=== PATIENT | male | born 1945 | race Caucasian/White ===

== ENCOUNTER 2021-03-29 06:02 | Observation (INO) | payer MEDICARE, OTHER, SELFPAY ==
[2021-03-29] VITALS (31 sets, daily range): BP systolic 117–192; BP diastolic 71–110; PULSE 56–99; RESP 15–22; TEMP 36.2–37; O2SAT 90–100; BMI 25.7
--- NOTE | 2021-03-29 06:17 | US_ITS ---
WS: [id number] RIGHT UPPER QUADRANT ULTRASOUND HISTORY: ruq pain COMPARISON: None available. Liver: 16.4 cm in length. Normal size liver. Very mild central bile duct dilatation. Gallbladder: Normally distended gallbladder with numerous small stones layering and a small amount of sludge. Mild prominence the gallbladder wall measuring up to 4 mm. CBD: 0.8 cm Pancreas: Completely obscured by bowel gas. Right kidney: 10.7 cm in length. Normal size kidney. There is a large complex cyst from the mid kidne y measuring 8.5 x 7.9 cm. There is a septation present. No increased vascularity. Aorta and IVC: Unremarkable abdominal aorta and IVC. No ascites. US/US gall bladder [id number] IMPRESSION: 1. Cholelithiasis with changes highly suspicious for acute cholecystitis. 2. Common bile duct is mildly prominent with mild central bile duct dilatation . Distal obstructing stone is not excluded. 3. Pancreatic head is obscured by bowel gas. 4. Large mildly complex RIGHT renal cyst.
[2021-03-29 06:40] LABS: Basophils % 0.3 %; Eosinophils # 0.1 10^3/uL (0.0-0.8); Eosinophils % 0.4 %; Hematocrit 42.5 % (42.0-52.0); Hemoglobin 14.8 g/dL (11.7-16.6); Lymphocytes # 0.9 10^3/uL (0.8-4.8); Lymphocytes % 7.3 %; Mean Corpuscular HGB Conc 34.8 g/dL (30.0-36.0); Mean Corpuscular Hemoglobin 32.2 pg (28.0-34.0); Mean Corpuscular Volume 92.4 fL (80-94); Monocytes # 0.4 10^3/uL (0.2-0.9); Neutrophils # 10.26 10^3/uL (1.8-7.7); Neutrophils % 88.5 %; Nucleated Red Blood Cells % 0 %; Platelet Count 236 10^3/cmm (130-400); Red Cell Distribution Width 11.9 % (12.1-15.1); White Blood Count 11.6 10^3/uL (4.0-10.0)
[2021-03-29] MEDS: sodium chloride 0.9% 1,000 ML 999 ML IV (06:43)
[2021-03-29] MEDS: morphine 4 mg/mL SDV 1 mL 6 MG IVP (06:44)
[2021-03-29] MEDS: ondansetron 2 mg/ML SDV 2 mL 4 MG IVP (06:45)
[2021-03-29] MEDS: piperacillin-tazobactam 3.375 GM in sodium chloride 0.9% (plus) 50 ML IV ×3 (07:16→17:48)
[2021-03-29 07:17] LABS: Alanine Aminotransferase 18 U/L (0-41); Albumin Level 4.4 g/dL (3.5-5.2); Alkaline Phosphatase 95 IU/L (40-130); Anion Gap 18.1 (5-19); Aspartate Amino Transferase 17 U/L (0-40); Blood Urea Nitrogen 23 mg/dL (8-23); C Reactive Protein 4.8 mg/L (0.0-4.9); Calcium 8.4 mg/dL (8.5-10.5); Carbon Dioxide 21 mmol/L (22-29); Chloride 100 mmol/L (98-107); Globulin 2.3 g/dL (1.3-4.6); Glucose 226 mg/dL (65-115); Lipase 36 U/L (13-60); Osmolality Calculated 291 mOsm/kg (285-295); Potassium 4.1 mmol/L (3.5-5.1); Sodium 135 mmol/L (136-145); Total Bilirubin 0.5 mg/dL (0.15-1.2); Total Protein 6.7 g/dL (6.6-8.7)
--- NOTE | 2021-03-29 07:43 | ED_ITS ---
HPI - Abdominal Pain General: Chief Complaint: Abdominal Pain Stated Complaint: abd pain Time Seen by Provider: 03/29/21 06:16 History of Present Illness: HPI narrative: 75-year-old male presents emergency room with complaints of right upper quadrant abdominal pain that began yesterday. Began yesterday shortly after eating seem to get better and then he ate a sandwich with ham started bothering him he has severe right upper quadrant pain. He has had similar episodes in the past that were less intense that all resolved spontaneously this episode seems to be persisting. Has not had any fever sweats or chills some loose stools no hematochezia melena hematemesis or coffee-ground emesis denies chest pain he has some difficulty taking a deep breath because of the pain in the right upper quadrant no productive cough. No respiratory symptoms. MD elicited complaint: abdominal pain Onset (ago): hour(s) Pain Consistency: constant Location: RUQ Quality: cramping and stabbing Radiation: back Exacerbating factors: eating Relieving factors: nothing Associated Symptoms: Reports anorexia, bloating, GI cramping and nausea; Denies belching, change in bowel habits, change in stool character, chills, coffee ground emesis, constipation, diarrhea, dyspepsia, dysuria, excessive flatus, fever(s), heartburn, hematochezia, hematuria, hematemesis, fecal inconti nence, loose stools, melena, poor appetite, syncope and vomiting Review of Systems Const: Denies: fever(s) or chills Card: Denies: syncope GI: Reports: nausea, bloating and GI cramping; Denies: vomiting, hematemesis, coffee ground emesis, heartburn, diarrhea, constipation, belching, excessive flatus, fecal incontinence, change in bowel habits, change in stool character, hematochezia or melena : Denies: dysuria or hematuria PFS ED PFSH: Medical History BPH (benign prostatic hyperplasia) Hyperlipidemia Hypertension Type 2 diabetes mellitus Surgical History [facility] Social History Smoking and tobacco status: never smoked Alcohol intake: former Physical Exam Const: COMMON NORMALS: no acute distress GENERAL APPEARANCE: cooperative and comfortable ORIENTATION/CONSCIOUSNESS: Yes awake, Yes oriented to person, Yes oriented to place and Yes oriented to time HENMT: COMMON NORMALS: normocephalic, atraumatic, hearing grossly normal bilaterally and external ears normal HEAD & SCALP: normocephalic and atraumatic EXTERNAL EAR: Yes external ears normal Neck/C-Spine: COMMON NORMALS: no JVD Resp: COMMON NORMALS: normal respiratory effort, No retractions, No use of accessory muscles and clear to auscultation bilaterally AUSCULTATION: clear to auscultation bilaterally Cardio: COMMON NORMALS: no JVD, regular rate, regular rhythm and No murmurs present (Cardio) RATE: regular rate RHYTHM: regular rhythm GI: COMMON NORMALS: Soft to palpation and No hepatosplenomegaly present AUSCULTATION: Yes normoactive bowel sounds PALPATION: Yes Soft to palpation, No Tenderness to palpation present (GI), No Guarding due to palpation present (GI) and Yes No hepatosplenomegaly present Extremity: COMMON NORMALS: normal to inspection, capillary refill normal, no clubbing, cyanosis or edema, no calf tenderness and no pedal edema Neuro: SENSORIUM/ORIENTATION: Yes oriented to person, Yes oriented to place and Yes oriented to time Skin: COMMON NORMALS: no rashes or lesions noted GENERAL SKIN EXAM: no rashes or lesions noted Course Vital Signs: Vital signs: Vital Signs Temperature 98.4 F 03/29/21 06:11 Pulse Rate 68 03/29/21 08:00 Respiratory Rate 18 03/29/21 08:00 Blood Pressure 191/100 03/29/21 08:00 Pulse Oximetry 97 03/29/21 08:00 MDM - Abdominal Pain MDM Narrative: Medical decision making narrative: Dr. Ascencio admit patient consult to hospitalist for hypertension and diabetes management patient was given pain medication and started on Zosyn. The pain is improved blood pressure elevated his heart rate is still in the 50s and 60s he normally takes metoprolol in the morning we will give him some enalaprilat now potassium creatinine are normal. Patient has cholelithiasis acute cholecystitis, mild dilation of common bile duct but no evidence of obstruction on lab work no stone visualized in common bile duct. Lab Data: Labs: Lab Results 03/29/21 03/29/21 03/29/21 Range/Units 06:35 06:35 06:52 WBC 11.6 H (4.0-10.0) 10^3/ uL RBC 4.60 (4.1-5.3) 10^6/u L Hgb 14.8 (11.7-16.6) g/dL Hct 42.5 (42.0-52.0) % MCV 92.4 (80-94) fL MCH 32.2 (28.0-34.0) pg MCHC 34.8 (30.0-36.0) g/dL RDW 11.9 L (12.1-15.1) % Plt Count 236 (130-400) 10^3/c mm MPV 11.0 H (7.4-10.4) fL Neut % (Auto) 88.5 % Lymph % (Auto) 7.3 % [place] % (Auto) 3.0 % Eos % (Auto) 0.4 % Baso % (Auto) 0.3 % Neut # (Auto) 10.26 H (1.8-7.7) 10^3/u L Lymph # (Auto) 0.9 (0.8-4.8) 10^3/u L [place] # (Auto) 0.4 (0.2-0.9) 10^3/u L Eos # (Auto) 0.1 (0.0-0.8) 10^3/u L Baso # (Auto) 0.0 (0.0-0.1) 10^3/u L Nucleated RBC % (a uto) 0 % Nucleated RBCs # 0.0 /100WBC Sodium Cancelled 135 L Potassium Cancelled 4.1 Chloride Cancelled 100 Carbon Dioxide Cancelled 21 L Anion Gap Cancelled 18.1 BUN Cancelled 23 Creatinine Cancelled 0.7 GFR Calculation Cancelled Not Reportable Glucose Cancelled 226 H Calculated Osmolal ity Cancelled 291 Calcium Cancelled 8.4 L Total Bilirubin Cancelled 0.5 AST Cancelled 17 ALT Cancelled 18 Alkaline Phosphata se Cancelled 95 C-Reactive Protein Cancelled 4.8 Total Protein Cancelled 6.7 Albumin Cancelled 4.4 Globulin Cancelled 2.3 Lipase Cancelled 36 Discharge Plan Discharge Patient Disposition: Admitted As Inpatient Clinical Impression: Acute cholecystitis due to biliary calculus, Benign essential HTN Condition: Stable Coding Level of Care Code 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
--- NOTE | 2021-03-29 08:11 | PM.HP ---
Providers/Chief Complaint Admitting Physician: General Surgery Ankit Jerome MD Chief Complaint: abd pain History of Present Illness Jaswinder Sutton is a 75 year old male who developed upper abdominal pain yesterday. He eventually developed nausea and vomiting. He never saw any evidence of hematemesis. He says he has felt hot and cold but is not sure that he ever ran any fevers. He came to the emergency room today and an ultrasound showed changes consistent with early acute cholecystitis. The patient says he has had a couple episodes like this in the past, although perhaps not this bad. The first 1 was about a year ago and was somewhat severe, however. He denies any obvious food intolerances, postprandial discomfort, etc. In short, it is difficult for me to say that he has a frequent and ongoing history of biliary colic. Review of Systems General: Reports: 10 or more systems reviewed and unremarkable except in HPI and below Medications/Allergies Allergies Allergy/AdvReac Type Severity Reaction Status Date / Time No Known Allergies Allergy Verified 03/29/21 06:14 PFSH Acute PFSH: Medical History (Updated 03/29/21 @ 08:27 by Ankit Jerome MD) BPH (benign prostatic hyperplasia) Hyperlipidemia Hypertension Type 2 diabetes mellitus Surgical History (Updated 03/29/21 @ 08:27 by Ankit Jerome MD) Hx of [facility] Social History (Updated 03/29/21 @ 08:28 by Ankit Jerome MD) Smoking and tobacco status: never smoked Alcohol intake: former Vitals/I&O/Wt Last Vital Signs Temp 98.4 F 03/29/21 06:11 Pulse 68 03/29/21 08:00 Resp 18 03/29/21 08:00 BP 191/100 03/29/21 08:00 Pulse Ox 97 03/29/21 08:00 Weight last 48 hrs Weight 200 lb Physical Exam Narrative: EXAM NARRATIVE: The patient was encountered in his room in the emergency department. His pupils seem equal. No carotid bruits are heard. The lungs are clear anteriorly. The heart is regular. The abdomen reveals few bowel sounds but is soft. The patient has his maximum tenderness in the right upper quadrant with a positive Alas's sign. No obvious masses are palpated. The extremities reveal no edema. Neurologically the patient appears to be grossly intact. Data : 03/29/21 06:35 03/29/21 06:52 Other Labs: Laboratory Tests 03/29/21 06:52 Total Bilirubin 0.5 AST 17 ALT 18 Alkaline Phosphatase 95 US: Radiologist's impression: Gallbaladder ultrasound 03/29/21 IMPRESSION: 1. Cholelithiasis with changes highly suspicious for acute cholecystitis. 2. Common bile duct is mildly prominent with mild central bile duct dilatation. Distal obstructing stone is not excluded. 3. Pancreatic head is obscured by bowel gas. 4. Large mildly complex RIGHT renal cyst. A&P Assessment and plan (1) Acute cholecystitis due to biliary calculus: I discussed gallbladder disease and gallbladder surgery with the patient in detail. Risks of bleeding, infection, internal organ injury, etc. were all gone over. The patient seems to understand and would like to proceed with a cholecystectomy today. He will be kept n.p.o. and I will make arrangements for a laparoscopic or possibly open cholecystectomy later today. Status: Acute Attestations Medical Necessity Statement*: Based on my medical assessment, presenting symptoms and consideration of the scope of surgical therapy, I expect this patient will require treatment in the hospital for a period of time spanning less than 2 midnights, and is therefore being placed in observation status. 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
[2021-03-29] MEDS: enalaprilat 1.25 mg/mL Inj IVP (08:16)
--- NOTE | 2021-03-29 08:19 | PC.NURSE ---
Dr Jerome at bedside.
--- NOTE | 2021-03-29 08:23 | XRR_ITS ---
PROCEDURE INFORMATION: Exam: XR Chest Exam date and time: 03/29/2021 8:23 AM Age: 75 years old Clinical indication: Pain; Cough and dyspnea; Other: Abdominal; Additional info: Dyspnea/cough TECHNIQUE: Imaging protocol: XR of the chest. Views: 1 view. COMPARISON: CT chest con [id number] 06/06/2019 8:52 AM FINDINGS: Lungs: No significant airspace disease. Pleural spaces: No pleural effusion. Heart/Mediastinum: Epicardial fat, without cardiomegaly. Diaphragm: Asymmetric elevation of the right hemidiaphragm. Bones/joints: Degenerative change. XR/XR chest 1V portable [id number] IMPRESSION: No acute airspace or pleural disease.
--- NOTE | 2021-03-29 08:23 | ECG_ITS ---
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 Measurements Intervals [place] Rate: P: MA: QRS: 0 QRSD: T: 0 QT: QTc: Interpretive Statements Normal sinus rhythm No previous ECG available for comparison Electronically Signed On 03-29-2021 12:31:51 CDT by Juan Adams M.D. [email or web address]
--- NOTE | 2021-03-29 08:39 | PM.CONSULT ---
Providers/Reason For Consult Consulting Physician/Specialty*: George Jj MD, hospitalist Reason for Consult*: Hypertension, medical management Attending Physician: Ankit Jerome MD History of Present Illness History of Present Illness Jaswinder Sutton is a 75 year old male being admitted by the surgical service for concerns of acute cholecystitis. Patient reports he has had significant abdominal discomfort, right upper quadrant radiating to the back since around yesterday at 5:55 PM. He reports he vomited multiple times, and no blood was in his emesis. His stools have not been white. He has had no diarrhea. He has had no blood in his stool or black or tarry stools. He denies any fever or chills. He states for at least the last year he has had intermittent discomfort in his right upper quadrant. He thinks this happens around once a month but is not sure. He denies any recent history of Covid. He got his second Pfizer vaccine for Covid in December. He denies any cough, shortness of breath, chest discomfort, history of stroke or coronary disease. He reports he can go up 1 flight of steps without any difficulty and works daily without any chest discomfort or limitations. He denies any prior history of surgery, and denies being on any anticoagulants. He is on 81 mg of aspirin daily according to his medicine list from his primary care provider. Review of Systems General: Reports: 10 or more systems reviewed and unremarkable except in HPI and below Const: Denies: fever(s) or chills Eyes: Denies: change in vision ENMT: Denies: throat pain Card: Denies: chest pain Resp: Denies: dyspnea GI: Reports: abdominal pain, nausea and vomiting : Reports: difficulty urinating (History of prostate hypertrophy.); Denies: flank pain Musc: Denies: neck pain Skin/Breast: Denies: rash Neuro: Denies: headache(s) Psych: Denies: anxiety or depression Endo: Denies: polyuria Bob/Lymph: Denies: easy bruising All/Imm: Denies: urticaria Meds/Allergies Home Medications and Allergies Home Medications Medication Instructions Recorded Confirmed Last Taken Type aspirin [Aspir-81] 81 mg PO DAILY 03/29/21 03/29/21 03/28/21 History glipizide 10 mg PO DAILY 03/29/21 03/29/21 03/28/21 History ibuprofen 600 mg PO PRN 03/29/21 03/29/21 03/28/21 History lisinopril 2.5 mg PO DAILY 03/29/21 03/29/21 03/28/21 History metformin 500 mg PO DAILY 03/29/21 03/29/21 03/28/21 History metoprolol tartrate 50 mg PO DAILY 03/29/21 03/29/21 03/28/21 History multivit with min-folic acid 1 tab PO DAILY 03/29/21 03/29/21 03/28/21 History [Adult Multivitamin Gummies] pantoprazole 40 mg PO DAILY 03/29/21 03/29/21 03/28/21 History simvastatin 20 mg PO BEDTIME 03/29/21 03/29/21 03/28/21 History tamsulosin 0.4 mg PO DAILY 03/29/21 03/29/21 03/28/21 History Allergies Allergy/AdvReac Type Severity Reaction Status Date / Time No Known Allergies Allergy Verified 03/29/21 08:59 PFSH Acute PFSH: Medical History (Updated 03/29/21 @ 08:48 by Layton Jj MD) BPH (benign prostatic hyperplasia) Hyperlipidemia Hypertension Type 2 diabetes mellitus Surgical History Hx of [facility] Social History (Updated 03/29/21 @ 08:44 by Layton Jj MD) Smoking and tobacco status: former smoker Alcohol intake: former Vitals/I&O/Wt Last Vital Signs Temp 98.4 F 03/29/21 06:11 Pulse 68 03/29/21 08:00 Resp 18 03/29/21 08:00 BP 191/100 03/29/21 08:00 Pulse Ox 97 03/29/21 08:00 Weight last 48 hrs Weight 90.718 kg Physical Exam Narrative: EXAM NARRATIVE: General exam is a white male, complaining of some right upper quadrant pain. Blood pressure is noted to be elevated HEENT: Pupils equally round. Atraumatic normocephalic. Oropharynx clear. Neck is supple no lymphadenopathy thyromegaly Cardiovascular regular rate and rhythm without murmur, no S3 or S4 Lungs are clear no wheezing or crackles Abdomen is soft with positive bowel sounds. No obvious organomegaly. Tenderness is present in the right upper quadrant. was deferred Extremities no cyanosis clubbing or edema, cap refill brisk Skin no rash Neuro no obvious focal deficits. Data Other Data: Other data: EKG demonstrates sinus rhythm, borderline left axis deviation, no acute changes LFTs are normal Calcium 8.4 Lipase 36 TSH and hemoglobin A1c pending Urinalysis pending Abdominal ultrasound demonstrates cholecystitis with cholelithiasis, mild central bile duct dilation, right renal cyst A&P Assessment and plan (1) Acute cholecystitis due to biliary calculus: Surgery primary Surgery is planning on cholecystectomy later today, presumably laparoscopy. No direct medical contraindications are noted for this procedure. N.p.o. currently Status: Acute (2) Benign essential HTN: Hydralazine as needed for hypertension Restart home medication once surgery is completed Note that he has received Vasotec x1 in the emergency department. Status: Acute (3) Type 2 diabetes mellitus: Sliding scale insulin, consistent carb diet when he is able to take p.o. Status: Acute (4) Hyperlipidemia: Continue statin Status: Acute (5) BPH (benign prostatic hyperplasia): Continue Flomax Status: Acute Additional A&P Information Full code Lovenox for DVT prophylaxis may be given postoperatively. SCDs for now. Thank you for this consultation. 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
[2021-03-29 08:53] LABS: Glucose Urine UA 4+ (Normal); Ketones Urine 2+ (Negative); Protein Urine Neg (Negative); Urine Appearance Clear (CLEAR); Urine Color Yellow (Yellow); pH Urine 5 (5-7)
[2021-03-29 08:54] LABS: Add Urine Microscopic? YES; Bilirubin Urine Neg (Negative); Blood Urine 2+ (Negative); Leukocyte Esterase Urine Negative (Negative); Nitrate Urine Negative (Negative); Urobilinogen Urine Norm (Negative)
[2021-03-29 08:55] LABS: Bacteria Urine TRACE /hpf; RBC Urine 0-4 /hpf (0-2); Squamous Epithelial Cell Urine RARE /hpf (0-5); WBC Urine 0-4 /hpf (0-5)
[2021-03-29 08:56] LABS: Add Urine Culture? No
[2021-03-29] MEDS: morphine 4 mg/mL SDV 1 mL IVP (08:58)
--- NOTE | 2021-03-29 09:00 | PC.PHAR ---
pt states he takes care of his own medications-ext med history shows last filled glipizide er 5mg daily on 02/20/21-pt states he has been taking 10mg daily-rx for er 10mg daily last filled on 01/15/21 90d/s pt states he is suppose to be taking the er 10mg daily-pt states he has just been taking flomax 0.4mg daily-ext med history shows last filled on 03/15/21 0.8mg daily-Dr.L Garces office has januvia as a active medication rx last written in 07/07/2020 11 refills pt states he is not taking this medication ext med history shows last filled on 10/21/2020 30d/s- pt states it was changed to metformin
[2021-03-29 09:04] LABS: Estmated Average Glucose 163; Hemoglobin A1C 7.3 % (4.0-6.0)
[2021-03-29] MEDS: metoprolol succinate ER (24 HR) 50 mg Tablet PO (10:53)
[2021-03-29] MEDS: lisinopril 2.5 mg Tablet PO (10:53)
[2021-03-29] MEDS: aspirin 81 mg EC Tablet PO (10:53)
[2021-03-29] MEDS: tamsulosin 0.4 mg Capsule 0.8 MG PO (10:53)
[2021-03-29] MEDS: pantoprazole DR 40 mg Tablet PO (10:53)
[2021-03-29] MEDS: sodium chloride 0.9% 1,000 ML 75 ML IV ×2 (10:53→17:48)
[2021-03-29 10:56] LABS: Glucose Point of Care 179 mg/dL (70-110)
--- NOTE | 2021-03-29 11:25 | P.ANESASSM_ITS ---
Pre-Anesthetic Assessment Pre-Anesthetic Assessment: Height/Weight: Height 1.88 m Weight 90.718 kg Temp Pulse Resp BP Pulse Ox 98.1 F 83 17 176/72 98 03/29/21 10:28 03/29/21 10:28 03/29/21 10:28 03/29/21 10:28 03/29/21 10:28 Preop Diagnosis: Cholecystitis Proposed Procedure: Operation Date: 03/29/21 13:00 Proposed Procedures p Laparoscopic Cholecystectomy(Not Applicable) - Ankit Jerome MD Familial anesthetic complications: None Was Beta Karyna taken within 24 hours: N/A Was Clonidine taken within 24 hours: N/A Last intake: > 8 hrs Social: Social History: No alcohol and No tobacco Exam: Pre-Anes Outpt Exam: alert, oriented x 3, clear to auscultation bilaterally and regular rate & rhythm Airway: Cervical ROM: WNL MP: 3 Dentition: Other (missing tooth) CV/HEM: CV/HEM: HTN GI: GI: GERD Metabolic: Metabolic: DM and Hyperlipidemia Anesthetic Plan: ASA status: 2 Anesthesia: General Risk of > 500 ml blood loss (7ml/kg in children): No Meds/Allergies Current Medications: Current Medications Generic Name Dose Route Start Last Admin Trade Name Freq PRN Reason Stop Dose Admin Aspirin 81 mg 03/29/21 10:28 03/29/21 10:53 Aspirin 81 Mg Ec Tablet PO 81 mg DAILY ARVIN Administration Sodium Chloride 1,000 mls @ 75 ml s/hr 03/29/21 10:28 03/29/21 10:53 Sodium Chloride 0.9% IV 75 mls/hr .[id number] ARVIN Administration Piperacillin Sod/T azobactam 50 mls @ 12.5 mls /hr 03/29/21 11:00 03/29/21 10:53 Sod 3.375 gm/ So dium Chloride IV 12.5 mls/hr Q8H ARVIN Administration Protocol Insulin Aspart 0 unit 03/29/21 12:00 03/29/21 10:54 Insulin Aspart 1 00 Unit/1 Ml SUBCUT Not Given WM&BEDTIME ARVIN Protocol Lisinopril 2.5 mg 03/29/21 10:28 03/29/21 10:53 Lisinopril 2.5 M g Tablet PO 2.5 mg DAILY ARVIN Administration Metoprolol Succina te 50 mg 03/29/21 10:28 03/29/21 10:53 Metoprolol Succi agnes Er (24 Hr) 50 Mg Tablet PO 50 mg DAILY ARVIN Administration Pantoprazole Sodiu m 40 mg 03/29/21 10:28 03/29/21 10:[address] 40 Mg Tablet PO 40 mg DAILY ARVIN Administration Tamsulosin HCl 0.8 mg 03/29/21 10:28 03/29/21 10:53 Tamsulosin 0.4 M g Capsule PO 0.8 mg DAILY ARVIN Administration PFSH Anesthesia PFSH: Medical History (Updated 03/29/21 @ 08:48 by Layton Jj MD) BPH (benign prostatic hyperplasia) Hyperlipidemia Hypertension Type 2 diabetes mellitus Surgical History Hx of [facility]AS[facility] Social History (Updated 03/29/21 @ 08:44 by Layton Jj MD) Smoking and tobacco status: former smoker Alcohol intake: former Data Anesthesia CBC & Chem 7: 03/29/21 06:35 03/29/21 06:52 Other Labs: Laboratory Results - last 48 hr 03/29/21 03/29/21 03/29/21 06:35 06:35 06:40 WBC 11.6 H RBC 4.60 Hgb 14.8 Hct 42.5 MCV 92.4 MCH 32.2 MCHC 34.8 RDW 11.9 L Plt Count 236 MPV 11.0 H Neut % (Auto) 88.5 Lymph % (Auto) 7.3 [place] % (Auto) 3.0 Eos % (Auto) 0.4 Baso % (Auto) 0.3 Neut # (Auto) 10.26 H Lymph # (Auto) 0.9 [place] # (Auto) 0.4 Eos # (Auto) 0.1 Baso # (Auto) 0.0 Nucleated RBC % (auto) 0 Nucleated RBCs # 0.0 Sodium Cancelled Potassium Cancelled Chloride Cancelled Carbon Dioxide Cancelled Anion Gap Cancelled BUN Cancelled Creatinine Cancelled GFR Calculation Cancelled Glucose Cancelled POC Glucose Estimat Average Glucose 163 Hemoglobin A1c 7.3 H Calculated Osmolality Cancelled Calcium Cancelled Total Bilirubin Cancelled AST Cancelled ALT Cancelled Alkaline Phosphatase Cancelled C-Reactive Protein Cancelled Total Protein Cancelled Albumin Cancelled Globulin Cancelled Lipase Cancelled TSH Urine Color Urine Appearance Urine pH Ur Specific [place] Urine Protein Urine Glucose (UA) Urine Ketones Urine Blood Urine Nitrate Urine Bilirubin Urine Urobilinogen Ur Leukocyte Esterase Urine RBC Urine WBC Ur Squamous Epith Cells Amorphous Sediment Urine Bacteria 03/29/21 03/29/21 03/29/21 06:52 06:52 08:16 WBC RBC Hgb Hct MCV MCH MCHC RDW Plt Count MPV Neut % (Auto) Lymph % (Auto) [place] % (Auto) Eos % (Auto) Baso % (Auto) Neut # (Auto) Lymph # (Auto) [place] # (Auto) Eos # (Auto) Baso # (Auto) Nucleated RBC % (auto) Nucleated RBCs # Sodium 135 L Potassium 4.1 Chloride 100 Carbon Dioxide 21 L Anion Gap 18.1 BUN 23 Creatinine 0.7 GFR Calculation Not Reportable Glucose 226 H POC Glucose Estimat Average Glucose Hemoglobin A1c Calculated Osmolality 291 Calcium 8.4 L Total Bilirubin 0.5 AST 17 ALT 18 Alkaline Phosphatase 95 C-Reactive Protein 4.8 Total Protein 6.7 Albumin 4.4 Globulin 2.3 Lipase 36 TSH 2.10 Urine Color Yellow Urine Appearance Clear Urine pH 5 Ur Specific [place] 1.020 Urine Protein Neg Urine Glucose (UA) 4+ H Urine Ketones 2+ H Urine Blood 2+ H Urine Nitrate Negative Urine Bilirubin Neg Urine Urobilinogen Norm Ur Leukocyte Esterase Negative Urine RBC 0-4 H Urine WBC 0-4 H Ur Squamous Epith Cells Rare Amorphous Sediment Not Reportable Urine Bacteria Trace 03/29/21 10:48 WBC RBC Hgb Hct MCV MCH MCHC RDW Plt Count MPV Neut % (Auto) Lymph % (Auto) [place] % (Auto) Eos % (Auto) Baso % (Auto) Neut # (Auto) Lymph # (Auto) [place] # (Auto) Eos # (Auto) Baso # (Auto) Nucleated RBC % (auto) Nucleated RBCs # Sodium Potassium Chloride Carbon Dioxide Anion Gap BUN Creatinine GFR Calculation Glucose POC Glucose 179 H Estimat Average Glucose Hemoglobin A1c Calculated Osmolality Calcium Total Bilirubin AST ALT Alkaline Phosphatase C-Reactive Protein Total Protein Albumin Globulin Lipase TSH Urine Color Urine Appearance Urine pH Ur Specific [place] Urine Protein Urine Glucose (UA) Urine Ketones Urine Blood Urine Nitrate Urine Bilirubin Urine Urobilinogen Ur Leukocyte Esterase Urine RBC Urine WBC Ur Squamous Epith Cells Amorphous Sediment Urine Bacteria Cardiac Studies: No Data to Display
--- NOTE | 2021-03-29 11:27 | PC.CHAP ---
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 [] Patient/Family/Request visit [] Outpatient visit [] Follow-up visit [] Physician referral [] Code/Alert [] Routine visit [] Staff referral [] Actively dying [] Patient sleeping [] Family support [] [] Out of room [] Palliative care [] [] Receiving care in room [] Pre-surgical visit [] Trauma [] Long length of stay [] ICU visit [] Other: Relational/Emotional Strength [] Patient feels connected with others/family/visitors/staff [] Distress [] Loneliness/isolation [] Abandonment Spirituality of Patient [x] Person of Nohelia [x] Attends Yazidi of their Nohelia [x] Believes in Prayer [] Reads Bible or Uatsdin materials [] There are Spiritual issues to be addressed Emt I/99 Interventions [x] Prayer [] Active listening [] Non-anxious presence [] Spiritual/emotional support [] Crisis/trauma care [] Spiritual counseling [] Bereavement support [] Provided bereavement packet [] Provided Bible/devotional materials [] Provided toy/stuffed animal, coloring book to patient or family member [] Provided Communion [] Anointing/[place] [] Salvation [] Completed spiritual assessment [] Other: Impact on Illness or Injury [] Angry [] Fearful [] Anxious [] Often cries [] Exhaustion [] Unable to work [] Unable to attend religion [] Unable to walk/stand [] Unable to read [] Unable to drive [] Unable to eat/drink [] Unable to sleep [] Unable to be with family [] Patient intubated [] Other: Summary Time spent with patient
--- NOTE | 2021-03-29 12:59 | P.OP_ITS ---
Operative Report Date of procedure: March 29, 2021 Pre-op Diagnosis: Acute calculus cholecystitis. Post-op diagnosis: same Procedure Done: Laparoscopic cholecystectomy. Specimens removed/disposition: Gallbladder. Surgeon: Ankit Jerome Anesthesia: General Estimated blood loss (mL): 10 Complications: None. Condition: stable Disposition: PACU Procedure: The patient was brought to the Operating Room and was placed in a supine position on the Operating Room table. General endotracheal anesthesia was induced. The abdomen was prepped and draped in a sterile fashion. A small vertical incision was carried out in the superior aspect of the umbilicus where the patient appeared to have a small umbilical hernia. Blunt dissection was carried out down to the fascia, where the fat-containing umbilical hernia was found. The fat was excised and the fascial defect was elongated superiorly and inferiorly. A stay suture of 0 Vicryl was placed on either side of the midline. The underlying peritoneum was opened bluntly and the [place] port was placed directly into the peritoneal cavity and was held in place with the inflatable balloon. The peritoneal cavity was insufflated with carbon dioxide. The laparoscope was used to inspect the abdominal cavity. The gallbladder was distended and had changes typical of acute cholecystitis. No other gross abnormalities were noted. A 5 millimeter port was placed in the epigastrium under direct vision. Two 5-millimeter ports were placed on the right side of the abdomen under direct vision. The gallbladder was palpated with a grasper and was found to be distended and somewhat tense. Approximately 60 mL of dark- colored bile were suctioned from the gallbladder using a laparoscopic needle. The bile was sent for culture. The gallbladder was then grasped and was elevated. The patient had some fatty adhesions to the fundus and infundibular region of the gallbladder. These were taken down using blunt dissection with some cautery to maintain hemostasis. Blunt dissection and hydrodissection were carried out in the infundibular region of the gallbladder and the cystic duct and cystic artery were identified. The gallbladder was partially removed from the liver bed using cautery and the spatula to confirm the anatomy before the structures were clipped and divided. The gallbladder was then removed from the liver bed using cautery and the spatula. After the gallbladder had been removed from the liver bed, the laparoscope was moved to the epigastric port and the gallbladder was removed from the peritoneal cavity through the umbilical port site. The stay sutures of Vicryl were tied to each other at the umbilicus, closing the defect so that it was airtight. The perihepatic spaces were irrigated with saline and the liver bed was reinspected. No ongoing problems were seen. The remaining ports were removed from the abdominal wall and the pneumoperitoneum was evacuated. All skin incisions were closed using inverted interrupted sutures of 4-0 Vicryl. Benzoin and Steri-Strips were placed over the incisions and Band-Aids followed. The patient was taken to the Recovery Area in stable condition postoperatively.
[2021-03-29] MEDS: fentaNYL 50 mcg/mL INJ 2mL IVP (13:13)
--- NOTE | 2021-03-29 13:48 | XRR_ITS ---
PROCEDURE INFORMATION: Exam: XR Chest Exam date and time: 03/29/2021 1:53 PM Age: 75 years old Clinical indication: Shortness of breath; Prior surgery; Surgery date: Post-operative (0-2 days); Additional info: SOB TECHNIQUE: Imaging protocol: XR of the chest. Views: 1 view. COMPARISON: CR XR chest 1V portable [id number] 03/29/2021 8:35 AM FINDINGS: Lungs: No significant airspace disease. Pleural spaces: No pleural effusion. Heart/Mediastinum: No cardiomegaly. Diaphragm: Asymmetric elevation of the right hemidiaphragm. Bones/joints: Degenerative change. Intraperitoneal space: Subtle findings of pneumoperitoneum, in the setting of recently reported surgery. Gastrointestinal tract: Bowel dilatation in the visualized upper abdomen. XR/XR chest 1V portable [id number] IMPRESSION: Subtle findings of pneumoperitoneum, in the setting of recently reported surgery.
[2021-03-29] MEDS: HYDROcodone-acetaminophen 5-325 mg Tablet PO ×2 (16:04→20:47)
[2021-03-29] MEDS: heparin 5,000 unit/mL INJ 1 mL 5000 UNIT SUBCUT (16:04)
[2021-03-29 17:07] LABS: Glucose Point of Care 210 mg/dL (70-110)
[2021-03-29 20:18] LABS: Glucose Point of Care 216 mg/dL (70-110)
[2021-03-29] MEDS: atorvastatin 40 mg Tablet 20 MG PO (20:40)
[2021-03-30 01:30] VITALS: BP 121/73; PULSE 79; RESP 17; TEMP 37.1; O2SAT 94
[2021-03-30 02:40] LABS: Basophils % 0.1 %; Hematocrit 42.2 % (42.0-52.0); Hemoglobin 14.5 g/dL (11.7-16.6); Lymphocytes # 1.2 10^3/uL (0.8-4.8); Lymphocytes % 9.9 %; Mean Corpuscular HGB Conc 34.4 g/dL (30.0-36.0); Mean Corpuscular Hemoglobin 32.2 pg (28.0-34.0); Mean Corpuscular Volume 93.6 fL (80-94); Mean Platelet Volume 10.6 fL (7.4-10.4); Monocytes # 0.8 10^3/uL (0.2-0.9); Monocytes % 7.1 %; Neutrophils # 9.69 10^3/uL (1.8-7.7); Neutrophils % 82.5 %; Nucleated Red Blood Cells % 0 %; Platelet Count 236 10^3/cmm (130-400); Red Blood Count 4.51 10^6/uL (4.1-5.3); White Blood Count 11.8 10^3/uL (4.0-10.0)
[2021-03-30] MEDS: piperacillin-tazobactam 3.375 GM in sodium chloride 0.9% (plus) 50 ML IV (02:52)
[2021-03-30] MEDS: heparin 5,000 unit/mL INJ 1 mL 5000 UNIT SUBCUT (02:55)
[2021-03-30 03:01] LABS: Alanine Aminotransferase 155 U/L (0-41); Albumin Level 3.6 g/dL (3.5-5.2); Alkaline Phosphatase 84 IU/L (40-130); Aspartate Amino Transferase 121 U/L (0-40); Blood Urea Nitrogen 13 mg/dL (8-23); Calcium 7.9 mg/dL (8.5-10.5); Carbon Dioxide 26 mmol/L (22-29); Chloride 102 mmol/L (98-107); Globulin 2.5 g/dL (1.3-4.6); Glucose 170 mg/dL (65-115); Osmolality Calculated 286 mOsm/kg (285-295); Sodium 136 mmol/L (136-145); Total Bilirubin 0.8 mg/dL (0.15-1.2); Total Protein 6.1 g/dL (6.6-8.7)
[2021-03-30] MEDS: HYDROcodone-acetaminophen 5-325 mg Tablet PO ×2 (03:11→10:08)
[2021-03-30 04:00] VITALS: BP 139/74; PULSE 62; RESP 18; TEMP 36.5; O2SAT 95
--- NOTE | 2021-03-30 05:55 | PC.NURSE ---
Shift Summary Patient rested off and on throughout the night. Patient did had some abdominal and shoulder pain throughout the shift with the highest pain being a 5 on the 0 to 10 pain scale. Patient admitted pain was worse when he would sit up on the side of the bed. Patient denies passing any gas yet but does admit he has been belching throughout the night. Patient is currently resting comfortably in bed.
[2021-03-30 06:42] LABS: Glucose Point of Care 155 mg/dL (70-110)
[2021-03-30] MEDS: sodium chloride 0.9% 1,000 ML 75 ML IV (07:05)
--- NOTE | 2021-03-30 07:08 | PM.DCS ---
Discharge Providers Date of Admission: 03/29/21 08:55 Date of Discharge: March 30, 2021 Attending Provider at Admission: Ankit Jerome MD Attending Provider at Discharge: Ankit Jerome MD Diagnoses at Discharge Discharge Diagnosis (1) Acute cholecystitis due to biliary calculus: Status: Acute (2) Benign essential HTN: Status: Acute (3) Type 2 diabetes mellitus: Status: Acute (4) Hyperlipidemia: Status: Acute (5) BPH (benign prostatic hyperplasia): Status: Acute Reason for Visit Reason for Visit: abd pain Hospital Course Hospital Course This is a 75-year-old white male who presented to the emergency room with a 24-hour history of abdominal pain. Work-up revealed acute calculus cholecystitis. He was taken to the operating room the same day and a laparoscopic cholecystectomy was performed. The hospitalist team was consulted preoperatively and followed him throughout his stay. By the following morning he was already feeling much better and was tolerating oral intake. He was anxious to go home. He was instructed with respect to wound care, activity limitations, diet, etc. Arrangements will be made for him to follow-up with me in my office as an outpatient. Physical Exam Narrative: EXAM NARRATIVE: The patient is afebrile. Vital signs are stable. Bowel sounds are present in all the laparoscopic incisions look good. Discharge Data Data Completed and Pending: Completed Studies During Hospitalization Category Date Time Status XR chest 1V jessica ble [id number] Stat Exams 03/29/21 08:23 Completed XR chest 1V jessica ble [id number] Stat Exams 03/29/21 13:48 Completed US gall bladder 7 [id number] Urgent Ultrasound 03/29/21 06:17 Completed Pending at discharge Category Date Time Status ES surgery / GI i mages Routine Exams 03/29/21 11:06 Ordered Body Fluid Cultur e & GS Routine Lab 03/29/21 12:20 Results Pathology: Surgic al [PTH] Routine Pth 03/29/21 13:15 Ordered Labs from last 24 hours 03/30/21 03/30/21 03/30/21 06:26 02:13 02:13 WBC 11.8 H RBC 4.51 Hgb 14.5 Hct 42.2 MCV 93.6 MCH 32.2 MCHC 34.4 RDW 12.0 L Plt Count 236 MPV 10.6 H Neut % (Auto) 82.5 Lymph % (Auto) 9.9 [place] % (Auto) 7.1 Eos % (Auto) 0.0 Baso % (Auto) 0.1 Neut # (Auto) 9.69 H Lymph # (Auto) 1.2 [place] # (Auto) 0.8 Eos # (Auto) 0.0 Baso # (Auto) 0.0 Nucleated RBC % (a uto) 0 Nucleated RBCs # 0.0 Sodium 136 Potassium 4.0 Chloride 102 Carbon Dioxide 26 Anion Gap 12.0 BUN 13 Creatinine 0.9 GFR Calculation Not Reportable Glucose 170 H POC Glucose 155 H Estimat Average Gl ucose Hemoglobin A1c Calculated Osmolal ity 286 Calcium 7.9 L Total Bilirubin 0.8 AST 121 H ALT 155 H Alkaline Phosphata se 84 C-Reactive Protein Total Protein 6.1 L Albumin 3.6 Globulin 2.5 Lipase TSH Urine Color Urine Appearance Urine pH Ur Specific Gravit y Urine Protein Urine Glucose (UA) Urine Ketones Urine Blood Urine Nitrate Urine Bilirubin Urine Urobilinogen Ur Leukocyte Saskia ase Urine RBC Urine WBC Ur Squamous Epith Cells Amorphous Sediment Urine Bacteria 03/29/21 03/29/21 03/29/21 20:13 16:58 10:48 WBC RBC Hgb Hct MCV MCH MCHC RDW Plt Count MPV Neut % (Auto) Lymph % (Auto) [place] % (Auto) Eos % (Auto) Baso % (Auto) Neut # (Auto) Lymph # (Auto) [place] # (Auto) Eos # (Auto) Baso # (Auto) Nucleated RBC % (a uto) Nucleated RBCs # Sodium Potassium Chloride Carbon Dioxide Anion Gap BUN Creatinine GFR Calculation Glucose POC Glucose 216 H 210 H 179 H Estimat Average Gl ucose Hemoglobin A1c Calculated Osmolal ity Calcium Total Bilirubin AST ALT Alkaline Phosphata se C-Reactive Protein Total Protein Albumin Globulin Lipase TSH Urine Color Urine Appearance Urine pH Ur Specific Gravit y Urine Protein Urine Glucose (UA) Urine Ketones Urine Blood Urine Nitrate Urine Bilirubin Urine Urobilinogen Ur Leukocyte Saskia ase Urine RBC Urine WBC Ur Squamous Epith Cells Amorphous Sediment Urine Bacteria 03/29/21 03/29/21 03/29/21 08:16 06:52 06:52 WBC RBC Hgb Hct MCV MCH MCHC RDW Plt Count MPV Neut % (Auto) Lymph % (Auto) [place] % (Auto) Eos % (Auto) Baso % (Auto) Neut # (Auto) Lymph # (Auto) [place] # (Auto) Eos # (Auto) Baso # (Auto) Nucleated RBC % (a uto) Nucleated RBCs # Sodium 135 L Potassium 4.1 Chloride 100 Carbon Dioxide 21 L Anion Gap 18.1 BUN 23 Creatinine 0.7 GFR Calculation Not Reportable Glucose 226 H POC Glucose Estimat Average Gl ucose Hemoglobin A1c Calculated Osmolal ity 291 Calcium 8.4 L Total Bilirubin 0.5 AST 17 ALT 18 Alkaline Phosphata se 95 C-Reactive Protein 4.8 Total Protein 6.7 Albumin 4.4 Globulin 2.3 Lipase 36 TSH 2.10 Urine Color Yellow Urine Appearance Clear Urine pH 5 Ur Specific Gravit y 1.020 Urine Protein Neg Urine Glucose (UA) 4+ H Urine Ketones 2+ H Urine Blood 2+ H Urine Nitrate Negative Urine Bilirubin Neg Urine Urobilinogen Norm Ur Leukocyte Saskia ase Negative Urine RBC 0-4 H Urine WBC 0-4 H Ur Squamous Epith Cells Rare Amorphous Sediment Not Reportable Urine Bacteria Trace 03/29/21 06:40 WBC RBC Hgb Hct MCV MCH MCHC RDW Plt Count MPV Neut % (Auto) Lymph % (Auto) [place] % (Auto) Eos % (Auto) Baso % (Auto) Neut # (Auto) Lymph # (Auto) [place] # (Auto) Eos # (Auto) Baso # (Auto) Nucleated RBC % (a uto) Nucleated RBCs # Sodium Potassium Chloride Carbon Dioxide Anion Gap BUN Creatinine GFR Calculation Glucose POC Glucose Estimat Average Gl ucose 163 Hemoglobin A1c 7.3 H Calculated Osmolal ity Calcium Total Bilirubin AST ALT Alkaline Phosphata se C-Reactive Protein Total Protein Albumin Globulin Lipase TSH Urine Color Urine Appearance Urine pH Ur Specific Gravit y Urine Protein Urine Glucose (UA) Urine Ketones Urine Blood Urine Nitrate Urine Bilirubin Urine Urobilinogen Ur Leukocyte Saskia ase Urine RBC Urine WBC Ur Squamous Epith Cells Amorphous Sediment Urine Bacteria Vitals: Last Vital Signs Temp 97.7 F 03/30/21 04:00 Pulse 62 03/30/21 04:00 Resp 18 03/30/21 04:00 BP 139/74 03/30/21 04:00 Pulse Ox 95 03/30/21 04:00 Discharge Plan Discharge Patient Disposition: Home Condition: Stable Prescriptions: New hydrocodone-acetaminophen 5-325 mg tablet 1 - 2 tab PO Q5H PRN (Reason: pain) Qty: 30 RF: 0 Continued metoprolol tartrate 100 mg tablet 50 mg PO DAILY RF: 0 glipizide 5 mg tablet extended release 24hr 10 mg PO DAILY RF: 0 Aspir-81 81 mg Tablet,Delayed Release (Dr/Ec) 81 mg PO DAILY RF: 0 tamsulosin 0.4 mg capsule 0.4 mg PO DAILY RF: 0 pantoprazole 40 mg tablet,delayed release (DR/EC) 40 mg PO DAILY RF: 0 simvastatin 20 mg tablet 20 mg PO BEDTIME RF: 0 ibuprofen 200 mg Tablet 600 mg PO PRN RF: 0 metformin 500 mg tablet extended release 24 hr 500 mg PO DAILY RF: 0 lisinopril 2.5 mg tablet 2.5 mg PO DAILY RF: 0 Adult Multivitamin Gummies 200 mcg Tablet,Chewable 1 tab PO DAILY RF: 0 Discharge Orders: Discharge Order (Routine); Ordered 03/30/21 Ordered By: Ankit Jerome Referrals: Ankit Jerome MD [Physician] - 2 weeks (Nursing: Please call Dr. Jerome's office ([phone]) and make an appointment for the patient to be seen in 10-14 days.) Discharge Diet: Advance as tolerated Discharge Activity: Limit activity as instructed Patient Instructions: Opioid Safety Activity Restrictions/Additional Instructions: 1. Discharge to home today. 2. Appointment to see Dr. Jerome in 10-14 days. 3. Bandages / bandaids off later today, leave Steri-Strip(s) on, may shower. 4. [place] 5/325 1-2 tablets by mouth every 5 hours as needed for pain. #30, no refills. No lifting over 20 pounds, no repetitive bending or twisting, no strenuous pushing / pulling or other heavy activity. Ambulate regularly. May go up and down steps if needed. Discharge Attestations Time Spent in Discharge Care*: less than 30 min Quality Metrics Clinical Quality Measures During this hospital stay, did patient experience: None Coding Level of Care Code Acute Chg [facility] note Diagnoses Acute cholecystitis due to biliary calculus K80.00 Benign essential HTN I10 Type 2 diabetes mellitus E11.9 Hyperlipidemia E78.5 BPH (benign prostatic hyperplasia) N40.0
[2021-03-30 07:33] VITALS: BP 118/65; PULSE 54; RESP 18; TEMP 36.3; O2SAT 94
[2021-03-30] MEDS: metoprolol succinate ER (24 HR) 50 mg Tablet PO (08:05)
[2021-03-30] MEDS: pantoprazole DR 40 mg Tablet PO (08:05)
[2021-03-30] MEDS: aspirin 81 mg EC Tablet PO (08:05)
[2021-03-30] MEDS: tamsulosin 0.4 mg Capsule 0.8 MG PO (08:05)
[2021-03-30] MEDS: lisinopril 2.5 mg Tablet PO (08:05)
--- NOTE | 2021-03-30 09:12 | P.PN_ITS ---
Subjective Subjective: Interval history: No concerns overnight. Patient denies any cough or shortness of breath. Medications: Reviewed: Yes Vitals/I&O/Wt Last Vital Signs Temp 97.3 F L 03/30/21 07:33 Pulse 54 L 03/30/21 07:33 Resp 18 03/30/21 07:33 BP 118/65 03/30/21 07:33 Pulse Ox 94 03/30/21 07:33 03/29/21 03/30/21 03/30/21 22:59 06:59 14:59 Intake Total 1038.75 / 2088.75 120 / 2208.75 1046.25 / 1046.25 Output Total 825 / 830 350 / 350 Balance 1038.75 / 2083.75 -705 / 1378.75 696.25 / 696.25 Weight last 48 hrs Weight 90.718 kg Physical Exam Narrative: EXAM NARRATIVE: General exam no obvious distress Neck is supple no lymphadenopathy thyromegaly Cardiovascular regular rate and rhythm without murmur, no S3 or S4 Lungs are clear no wheezing or crackles Abdomen is soft with positive bowel sounds. Surgical scars noted without significant drainage Extremities no cyanosis clubbing or edema, cap refill brisk Data : 03/30/21 02:13 03/30/21 02:13 Micro: Microbiology 03/29/21 12:20 Gram Stain - Final Gallbladder Fluid A&P Assessment and plan (1) Acute cholecystitis due to biliary calculus: Postoperative day #1 status post laparoscopic cholecystectomy Status: Acute (2) Benign essential HTN: Continue current home medications Status: Acute (3) Type 2 diabetes mellitus: Currently on sliding scale insulin. May resume home medication when discharged. Status: Acute (4) Hyperlipidemia: Continue statin Status: Acute (5) BPH (benign prostatic hyperplasia): Continue Flomax Status: Acute Additional A&P Information Full code Heparin given for DVT prophylaxis Appropriate for discharge as per surgery. Attestations Medical Necessity Statement*: As per primary Coding Level of Care Code Acute Encoding Machine Operator for Chg Fwd Diagnoses Acute cholecystitis due to biliary calculus K80.00 Benign essential HTN I10 Type 2 diabetes mellitus E11.9 Hyperlipidemia E78.5 BPH (benign prostatic hyperplasia) N40.0
[2021-03-30 11:07] LABS: Glucose Point of Care 159 mg/dL (70-110)
--- NOTE | 2021-03-30 11:44 | PC.NURSE ---
DISCHARGE INSTRUCTIONS DISCHARGE INSTRUCTIONS GIVEN TO PT AND - BOTH VERBALIZE UNDERSTANDING - TAKEN TO PRIVATE CAR VIA STAFF
[2021-03-30 11:46] VITALS: BP 118/65; PULSE 54; RESP 18; TEMP 36.3; O2SAT 94
== END 2021-03-30 11:47 | disposition home or self-care (01) ==
LOC: ER 09:27 → MEDSURG 09:49
PROVIDERS: Emergency Medicine; Internal Medicine; Admitting Provider Surgery; Emergency Provider Family Medicine; Visit Provider Surgery
PROC: 0FT44ZZ Resection of Gallbladder, Percutaneous Endoscopic Approach (ICD-10-PCS; CPT 47562; principal; 2021-03-29 13:00)
DX: K80.10 Calculus of gallbladder with chronic cholecystitis without obstruction (principal)
CPT/HCPCS: 47562; 36415; 36416; 71045; 76705; 80053; 81001; 82962; 83036; 83690; 84443; 85025; 86140; 87070; 87075; 87077; 87186; 87205; 88304; 93005; 96361; 96365; 96367; 96372; 96375; 99285; G0378; J1100; J1644; J1815; J2270; J2405; J2543; J2704; J2710; J3010; J3490; J7030

== ENCOUNTER 2022-07-21 14:18 | Observation (INO) | payer MEDICARE, OTHER, SELFPAY ==
[2022-07-21] VITALS (9 sets, daily range): BP systolic 134–172; BP diastolic 73–86; PULSE 59–68; RESP 13–23; TEMP 36.2–36.4; O2SAT 97–99; BMI 25.7
--- NOTE | 2022-07-21 14:26 | ECG_ITS ---
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 Measurements Intervals [place] Rate: 56 P: 60 SD: 170 QRS: -30 QRSD: 100 T: 32 QT: 416 QTc: 404 Interpretive Statements SINUS BRADYCARDIA BORDERLINE LEFT AXIS DEVIATION [QRS AXIS < -20] Compared to ECG 03/29/2021 08:34:59 Sinus rhythm no longer present Electronically Signed On 07-21-2022 20:36:06 CDT by Andreas Wakefield M.D. [email or web address]
--- NOTE | 2022-07-21 14:36 | XR_ITS ---
WS: [id number] Exam: XR chest 1V portable [id number] Date/Time of Exam: 07/21/2022 2:36 PM Reason For Exam: chest pain Comparison 03/29/2021. Findings: The lungs are clear and fully expanded. Costophrenic angles are sharp. No infiltrates. Bronchovascula r relief appears normal. Cardiac silhouette is unremarkable. Bony elements are intact. XR/XR chest 1V portable [id number] IMPRESSION: Unremarkable chest radiograph.
--- NOTE | 2022-07-21 14:47 | ED_ITS ---
HPI - Chest Pain General: Chief Complaint: Chest Pain Stated Complaint: Chest Pain Time Seen by Provider: 07/21/22 14:36 Source: patient Mode of arrival: ambulatory Limitations: no limitations History of Present Illness: 76 yo male with history of diabetes mellitus presents emergency room with 1 week onset of intermittent chest pain is been escalating in nature. Pain radiates into his neck and left shoulder and is accompanied by shortness of breath. He was seen a week ago had a cardiac rule out at another hospital his enzymes were negative and discharged home and asked to take a full size aspirin daily. Since then he seen his primary care doctor yesterday and was given sublingual nitro since receiving that prescription he is taken 7 pills when he has had episodes of chest pain each time and chest pain has been relieved by the nitro. He is pain-free at this time. He has no known history of coronary disease no previous interventions no previous stress testing. Patient is a non-smoker. MD complaint: chest pain Pertinent past history: coronary artery disease Onset (ago): week(s) (1) Timing of current episode: episodic Prior episodes: Yes Onset: during rest and during exertion Pain location: left chest Pain radiation: neck and left shoulder Quality: sharp Relieving factors: nitroglycerin Exacerbating factors: exertion Associated symptoms: Reports nausea; Deny abdominal pain, diaphoresis, dyspnea, fever(s), leg edema, palpitations, sense of impending doom, syncope or vomiting Treatment prior to arrival: aspirin and nitroglycerin Review of Systems Const: Denies: fever(s), chills, fatigue, malaise or diaphoresis ENMT: Denies: throat pain, ear or mastoid pain, nasal discharge or nasal congestion Card: Reports: chest pain; Denies: palpitations or syncope Resp: Denies: dyspnea GI: Reports: nausea; Denies: abdominal pain or vomiting : Denies: flank pain, difficulty urinating, dysuria, urinary frequency or urinary urgency Skin/Breast: Denies: rash or pruritus PFSH ED PFSH: Medical History Atherosclerotic heart disease of [place] coronary artery with unstable angina pectoris Benign essential HTN Enlarged prostate with lower urinary tract symptoms (LUTS) GERD (gastroesophageal reflux disease) Hyperlipidemia Hypertension Prostate cancer metastatic to bone Type 2 diabetes mellitus Surgical History History of cholecystectomy History of coronary angioplasty with insertion of stent (07/22/22) History of prostate biopsy (05/31/22) Hx of LASIK Family History Denies family history of CAD (coronary artery disease) Social History Smoking and tobacco status: former smoker Alcohol intake: former Physical Exam Const: GENERAL APPEARANCE: cooperative and comfortable ORIENTATION/CONSCIOUSNESS: Yes awake, Yes oriented to person, Yes oriented to place and Yes oriented to time HENMT: COMMON NORMALS: normocephalic, atraumatic and hearing grossly normal bilaterally HEAD & SCALP: normocephalic and atraumatic Resp: COMMON NORMALS: normal respiratory effort, No retractions, No use of accessory muscles and clear to auscultation bilaterally AUSCULTATION: clear to auscultation bilaterally Cardio: COMMON NORMALS: regular rate, regular rhythm and No murmurs present (Cardio) RATE: regular rate RHYTHM: regular rhythm GI: COMMON NORMALS: Soft to palpation and No hepatosplenomegaly present AUSCULTATION: Yes normoactive bowel sounds PALPATION: Yes Soft to palpation, No Tenderness to palpation present (GI), No Guarding due to palpation present (GI) and Yes No hepatosplenomegaly present Extremity: COMMON NORMALS: normal to inspection, capillary refill normal, no clubbing, cyanosis or edema, no calf tenderness and no pedal edema Neuro: SENSORIUM/ORIENTATION: Yes oriented to person, Yes oriented to place and Yes oriented to time Skin: COMMON NORMALS: no rashes or lesions noted GENERAL SKIN EXAM: no rashes or lesions noted Course Vital Signs: Vital signs: Vital Signs Temperature 98.1 F 07/23/22 11:16 Pulse Rate 59 L 07/23/22 11:16 Respiratory Rate 18 07/23/22 11:16 Blood Pressure 121/69 07/23/22 11:16 Pulse Oximetry 97 07/23/22 11:16 Oxygen Delivery Me thod 07/23/22 11:16 MDM - Chest Pain Medical Decision Making Unstable angina. admit patient with hospitalist labs and imaging reviewed discussed with cardiology and with hospitalist. Orders written Lab Data : 07/22/22 09:35 07/23/22 04:20 Radiology Impressions Chest X-Ray 07/21/22 14:36 IMPRESSION: Unremarkable chest radiograph. Laboratory Results WBC 6.8 10^3/uL (4.0-10.0) 07/21/22 14:52 RBC 4.76 10^6/uL (4.1-5.3) 07/21/22 14:52 Hgb 15.5 g/dL (11.7-16.6) 07/21/22 14:52 Hct 44.5 % (42.0-52.0) 07/21/22 14:52 MCV 93.5 fl (80-94) 07/21/22 14:52 MCH 32.6 pg (28.0-34.0) 07/21/22 14:52 MCHC 34.8 g/dL (30.0-36.0) 07/21/22 14:52 RDW 11.9 % (12.1-15.1) L 07/21/22 14:52 Plt Count 258 10^3/cmm (130-400) 07/21/22 14:52 MPV 10.5 fL (7.4-10.4) H 07/21/22 14:52 Neut % (Auto) 60.7 % 07/21/22 14:52 Lymph % (Auto) 24.9 % 07/21/22 14:52 [place] % (Auto) 8.7 % 07/21/22 14:52 Eos % (Auto) 4.1 % 07/21/22 14:52 Baso % (Auto) 1.2 % 07/21/22 14:52 Neut # (Auto) 4.09 10^3/uL (1.8-7.7) 07/21/22 14:52 Lymph # (Auto) 1.7 10^3/uL (0.8-4.8) 07/21/22 14:52 [place] # (Auto) 0.6 10^3/uL (0.2-0.9) 07/21/22 14:52 Eos # (Auto) 0.3 10^3/uL (0.0-0.8) 07/21/22 14:52 Baso # (Auto) 0.1 10^3/uL (0.0-0.1) 07/21/22 14:52 Nucleated RBC % (auto) 0 % 07/21/22 14:52 Nucleated RBCs # 0.0 /100WBC 07/21/22 14:52 D-Dimer <= 0.27 ug/mIFEU (0-0.59) 07/21/22 14:52 Sodium 136 mmol/L (136-145) 07/21/22 14:52 Potassium 4.3 mmol/L (3.5-5.1) 07/21/22 14:52 Chloride 102 mmol/L (98-107) 07/21/22 14:52 Carbon Dioxide 21 mmol/L (22-29) L 07/21/22 14:52 Anion Gap 17.3 (5-19) 07/21/22 14:52 BUN 20 mg/dL (8-23) 07/21/22 14:52 Creatinine 0.8 mg/dL (0.7-1.2) 07/21/22 14:52 GFR Calculation Not Reportable 07/21/22 14:52 Glucose 209 mg/dL (65-115) H 07/21/22 14:52 Estimat Average Glucose 206 07/21/22 14:52 Hemoglobin A1c 8.8 % (4.0-6.0) H 07/21/22 14:52 Calculated Osmolality 291 mOsm/kg (285-295) 07/21/22 14:52 Calcium 9.2 mg/dL (8.5-10.5) 07/21/22 14:52 Troponin T Baseline 45 ng/L (0-15) H 07/21/22 14:52 Troponin T 120 Minute 43.92 ng/L (0-15) H 07/21/22 17:02 Delta Troponin T -1.08 ABS# (0-10) L 07/21/22 17:02 TSH 1.64 uIU/mL (0.27-4.20) 07/21/22 17:02 Discharge Plan Discharge Patient Disposition: Admitted As Inpatient Admit Provider: Stephanie Edge Clinical Impression: Unstable angina pectoris, Malignant neoplasm of prostate, Secondary malignant neoplasm of bone Condition: Stable Discharge Diet: Cardiac Discharge Activity: Increase activity as tolerated Coding Level of Care Code ED Greenhouse Manager for Chg Fwd Exam Detailed
--- NOTE | 2022-07-21 14:53 | PC.NURSE ---
PT PLACED ON CONTINUOUS NIBP, SPO2, AND CM
[2022-07-21 14:57] LABS: Basophils # 0.1 10^3/uL (0.0-0.1); Basophils % 1.2 %; Eosinophils # 0.3 10^3/uL (0.0-0.8); Eosinophils % 4.1 %; Hematocrit 44.5 % (42.0-52.0); Hemoglobin 15.5 g/dL (11.7-16.6); Lymphocytes # 1.7 10^3/uL (0.8-4.8); Lymphocytes % 24.9 %; Mean Corpuscular HGB Conc 34.8 g/dL (30.0-36.0); Mean Corpuscular Hemoglobin 32.6 pg (28.0-34.0); Mean Corpuscular Volume 93.5 fl (80-94); Mean Platelet Volume 10.5 fL (7.4-10.4); Monocytes # 0.6 10^3/uL (0.2-0.9); Monocytes % 8.7 %; Neutrophils # 4.09 10^3/uL (1.8-7.7); Neutrophils % 60.7 %; Nucleated Red Blood Cells % 0 %; Platelet Count 258 10^3/cmm (130-400); Red Blood Count 4.76 10^6/uL (4.1-5.3); Red Cell Distribution Width 11.9 % (12.1-15.1); White Blood Count 6.8 10^3/uL (4.0-10.0)
--- NOTE | 2022-07-21 15:20 | PC.PHAR ---
pt external med list shows three different glipizide scripts filled and picked up at [facility] in [place] - Contacted pharmacy to verify - Pt had a med list from the prescribing Dr Gissel Jj dated 07/18/22 with the correct mg and dosage. Pt is taking 10 mg bid Glipizide- all other scripts were filled in error.
[2022-07-21 15:25] LABS: Troponin(5th) Baseline 45 ng/L (0-15)
[2022-07-21 15:33] LABS: Blood Urea Nitrogen 20 mg/dL (8-23); Calcium 9.2 mg/dL (8.5-10.5); Carbon Dioxide 21 mmol/L (22-29); Chloride 102 mmol/L (98-107); Creatinine Clr Calc Pharmacy 95.1191; Glucose 209 mg/dL (65-115); Osmolality Calculated 291 mOsm/kg (285-295); Sodium 136 mmol/L (136-145)
[2022-07-21 15:34] LABS: Anion Gap 17.3 (5-19); Potassium 4.3 mmol/L (3.5-5.1)
--- NOTE | 2022-07-21 16:08 | P.HP_ITS ---
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 Patient has been experiencing chest pain since last week he has been evaluated at [place] [facility] where he was asked to follow-up with PCP for stress test, since Monday he has had recurrent chest pain he has seen his PCP who recommended nitroglycerin, he has taken 7 tablets in last 24 hours, patient describing his chest pain as squeezing chest pressure left-sided radiating towards his left jaw, it gets better with use of nitroglycerin, onset is spontaneous, it is associated with shortness of breath and diaphoresis. No nausea, vomiting, diarrhea or fever In the ER he is chest pain-free hemodynamically stable, first troponin 45 EKG nonischemic nonspecific Considering typical chest pain I have asked ER physician to activate cardiology at the time of admission I will request echo we will keep him n.p.o. most likely he will need an angiogram Review of Systems Const: Reports: chills Eyes: Denies: change in vision ENMT: Denies: throat pain Card: Reports: chest pain Resp: Reports: dyspnea GI: Denies: abdominal pain : Denies: flank pain Musc: Denies: neck pain Skin/Breast: Denies: rash Neuro: Denies: headache(s) Psych: Denies: anxiety Endo: Denies: polyuria Bob/Lymph: Denies: easy bruising All/Imm: Denies: urticaria Medications/Allergies Home Medications Medication Instructions Recorded Confirmed Last Taken Type aspirin 81 mg tablet,delayed 81 mg PO DAILY 03/29/21 07/21/22 03/28/21 History release ibuprofen 200 mg tablet 600 mg PO PRN 03/29/21 07/21/22 03/28/21 History lisinopril 2.5 mg tablet 2.5 mg PO DAILY 03/29/21 07/21/22 03/28/21 History metformin 500 mg tablet,extended 500 mg PO DAILY 03/29/21 07/21/22 03/28/21 History release 24 hr metoprolol tartrate 100 mg tablet 50 mg PO DAILY 03/29/21 07/21/22 03/28/21 History pantoprazole 40 mg tablet,delayed 40 mg PO DAILY 03/29/21 07/21/22 03/28/21 History release simvastatin 20 mg tablet 20 mg PO BEDTIME 03/29/21 07/21/22 07/20/22 History tamsulosin 0.4 mg capsule 0.8 mg PO DAILY 03/29/21 07/21/22 03/28/21 History Vitamin D Tablet 1 tab PO BID 07/21/22 07/21/22 Unknown History calcium carbonate 600 mg calcium 600 mg PO BID 07/21/22 07/21/22 Unknown History (1,500 mg) tablet (Calcium) finasteride 5 mg tablet 5 mg PO DAILY 07/21/22 07/21/22 Unknown History glipizide 10 mg tablet 10 mg PO BID 07/21/22 07/21/22 Unknown History nitroglycerin 0.4 mg sublingual 0.4 mg sublingual Q5M PRN Chest 07/21/22 07/21/22 Unknown History tablet Pain Allergies Allergy/AdvReac Type Severity Reaction Status Date / Time No Known Allergies Allergy Verified 03/29/21 08:59 PFSH Acute PFSH: Medical History BPH (benign prostatic hyperplasia) Hyperlipidemia Hypertension Prostate cancer Spine metastasis Type 2 diabetes mellitus Surgical History Hx of LASIK Family History Denies family history of CAD (coronary artery disease) Social History Smoking and tobacco status: former smoker Alcohol intake: former Vitals/I&O/Wt Last Vital Signs Temp 97.2 F L 07/21/22 14:20 Pulse 65 07/21/22 14:20 Resp 16 07/21/22 14:20 BP 155/78 07/21/22 14:20 Pulse Ox 98 07/21/22 14:20 O2 Del Method 07/21/22 14:20 Weight last 48 hrs Weight 90.718 kg Physical Exam Narrative: She is euvolemic Very pleasant cooperative Very hard of hearing at the bedside Hemodynamically stable Currently on room air Chest pain-free S1, S2 Abdomen soft Doing well on room air Nonfocal neuro exam Pleasant and cooperative EOMI, PERRLA Data : 07/21/22 14:52 07/21/22 14:52 A&P Assessment and plan (1) BPH (benign prostatic hyperplasia): (2) Hyperlipidemia: (3) Type 2 diabetes mellitus: (4) Benign essential HTN: (5) Angina at rest: Plan Unstable angina Most likely will need an angiogram History of prostate cancer with mets to spine Check D-dimer to rule out PE N.p.o. after midnight Echo to low wall motion abnormality Start normal saline No active chest pain May benefit from nitro paste or nitroglycerin drip for recurrent chest pain Consult cardiology Check A1c level Patient is diabetic Hold metformin Sliding scale Consistent carb diet after midnight N.p.o. after midnight DVT prophylaxis with Lovenox Full code Prostate cancer follows up with Dr. 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
--- NOTE | 2022-07-21 16:37 | ECG_ITS ---
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 Measurements Intervals [place] Rate: 59 P: 60 HI: 169 QRS: -31 QRSD: 94 T: 16 QT: 396 QTc: 395 Interpretive Statements SINUS BRADYCARDIA LEFT AXIS DEVIATION [QRS AXIS < -30] Compared to ECG 07/21/2022 14:26:33 No significant changes Electronically Signed On 07-21-2022 20:43:11 CDT by Andreas Wakefield M.D. [id number]
[2022-07-21 16:44] LABS: D Dimer <= 0.27 ug/mIFEU (0-0.59)
[2022-07-21] MEDS: nitroglycerin 1 gm/inch oint Pkt 0.5 INCH TOPICAL ×2 (17:15→20:51)
[2022-07-21 17:43] LABS: Troponin 5 2HR 43.92 ng/L (0-15)
[2022-07-21 17:49] LABS: Troponin 5 2HR Delta -1.08 ABS# (0-10)
--- NOTE | 2022-07-21 17:59 | USCV_ITS ---
Jaswinder Sutton Age: 76 Gender: M : 1945 Exam Date: 07/21/2022 18:34 Ordering Phys: Stephanie Edge MD Technologist: SARANYA [place]am Location[place] [facility] [place]: Chest Pain. No history of cardiac intervention per patient. BP: 147 / 81 HR: 54 Rhythm: Sinus Technical Quality: Adequate MEASUREMENTS (Male / Female) Normal Values 2D ECHO LV Diastolic Diameter PLAX 4.5 cm 4.2 - 5.9 / 3.9 - 5.3 cm LV Systolic Diameter PLAX 3.1 cm IVS Diastolic Thickness 1.2 cm 0.6 - 1.0 / 0.6 - 0.9 cm IVS Systolic Thickness 1.8 cm LVPW Diastolic Thickness 1.1 cm 0.6 - 1.0 / 0.6 - 0.9 cm LVPW Systolic Thickness 1.3 cm LVOT Diameter 1.7 cm LV Ejection Fraction 2D Teich 59.0 % LV Ejection Fraction MOD 2C 55.0 % LV Ejection Fraction 2C AL 58.7 % LA Diameter 3.5 cm LA Width 4.5 cm LA Height 5.9 cm RA Width 4.1 cm RA Height 5.1 cm Aorta at Sinotubular Diameter 3.5 cm IVC Diameter 1.7 cm M-MODE Aortic Annulus Diameter 3.2 cm LA Ao Ratio MM 1.1 MV E Point Septal Separation 0.3 cm DOPPLER AV Peak Velocity 115.0 cm/s LVOT Peak Velocity 89.0 cm/s AV Area Cont Eq vti 1.6 cm squared AV Area Cont Eq pk 1.7 cm squared MV Area PHT 4.3 cm squared Mitral E to A Ratio 1.7 MV E' Velocity 48.5 cm/s Mitral E to MV E' Ratio 6.2 Mitral E to LV E' Lateral Ratio 6.5 Mitral E to LV E' Septal Ratio 5.9 TR Peak Velocity 255.3 cm/s TR Peak Gradient 26.1 mmHg TV Peak E Velocity 46.0 cm/s Right Atrial Pressure 5.0 mmHg Pulmonary Artery Systolic Pressu 31.1 mmHg PV Peak Velocity 95.0 cm/s RV Acceleration Time 0.1 s RV Ejection Time 0.4 s RV AcT/ET 0.3 FINDINGS Left Ventricle Normal left ventricular size and systolic function, EF 56 %. No regional wall motion abnormalities. Mild left ventricular hypertrophy. Right Ventricle The right ventricle is normal in size and function. Right Atrium The right atrium is normal in size. Left Atrium Mildly increased left atrial size. Mitral Valve Mildly thickened mitral valve. Moderate calcification in the anterior mitral leaflet. Moderate eccentric mitral regurgitation Aortic Valve Trace aortic valve regurgitation. Tricuspid Valve Trace tricuspid valve regurgitation. Pulmonic Valve Moderate pulmonary valve regurgitation. Pericardium No pericardial effusion. Aorta Normal ascending aorta dimension. IVC Normal inferior vena cava. CONCLUSIONS Normal left ventricular size and systolic function, EF 56 %. No regional wall motion abnormalities. Mild left ventricular hypertrophy. Mildly increased left atrial size. Mildly thickened mitral valve. Moderate calcification in the anterior mitral leaflet. Moderate eccentric mitral regurgitation. Trace aortic valve regurgitation. Trace tricuspid valve regurgitation. Moderate pulmonary valve regurgitation. Estimated pulmonary artery peak systolic pressure of 31 mmHg There is no pericardial effusion. There are no intracardiac masses. No previous study is available for comparison. Dr Andreas Waekfield MD FAC (Electronically Signed) Final Date: 21 July 2022 23:04 S
[2022-07-21] MEDS: sodium chloride 0.9% 1,000 ML 75 ML IV (18:13)
[2022-07-21 18:23] LABS: Glucose Point of Care 201 mg/dL (70-110)
[2022-07-21] MEDS: insulin lispro 100 unit/1 mL SUBCUT (18:24)
--- NOTE | 2022-07-21 18:42 | P.CONIM_ITS ---
Providers/Reason For Consult Consulting Physician/Specialty*: DOMI Wakefield MD/cardiology Reason for Consult*: Patient with unstable angina Requesting Physician: Dr. Edge Attending Physician: Stephanie Edge MD Primary Care Provider: Cynthia Jj MD History of Present Illness History of Present Illness Jaswinder Sutton is a 76 year old male presenting with recurrent episodes of prolonged chest pains. Cardiology consult is requested for further cardiac evaluation and recommendations. This patient has a history of type 2 diabetes, high blood pressure and dyslipidemia. For the last 1 week, he has been having episodes of chest pain. He was seen by the primary care provider on last Monday. He was prescribed sublingual nitroglycerin at that time. He describes this as pressure-like pain, radiating across the mid substernal region to the left arm, left shoulder and to the back. He may have some associated shortness of breath. No nausea or vomiting. No sweating. No dizziness, palpitation or syncopal episodes. He had a several of these episodes with intensity 7-8 over 10. Usually these's episodes are precipitated with activities. It may last anywhere from 10 minutes to 30 minutes and then subsides spontaneously or with sublingual nitroglycerin tablet. This morning he had an episode of pain lasting for half an hour. He took 1 sublingual nitro which finally gave him the relief of symptoms. He had another episode around noon. This time the pain gradually subsided in 15 minutes or so. He had to take a total of 7 sublingual nitro in 24 hours. He contacted his primary care provider about these. He was advised to come to the emergency room for further evaluation management. Patient has no previous history for any coronary artery disease, myocardial infarction or congestive heart failure. He has been having some chest discomfort and bilateral knee tingling of the arms but the numbness off and on. But never had a symptoms similar to this in the past. These episodes of chest pains are limiting his level of activities. He denies any fever, chills or cough. No unusual shortness of breath. No orthopnea or PND. He smoked 1 pack a day for 30 years or so which include 26 years ago. No alcoh ol abuse or any substance abuse. No significant family history for any premature atherosclerotic heart disease. Review of Systems Narrative: CONSTITUTIONAL: No fever or chills. EYES: No blurring of vision or other visual disturbances lately. ENT: No hoarseness of voice, auditory disturbances or sore throat. Patient has hearing impairment and ED is using hearing aids CARDIOVASCULAR: As mentioned above. RESPIRATORY: No significant cough. GASTROINTESTINAL: No hematemesis or melena. GENITOURINARY: He is diagnosed with metastatic cancer of the prostate. Undergoing treatment. INTEGUMENTARY: No skin rashes or history of skin cancer. NEURO: No transient ischemic attacks or amaurosis. PSYCHIATRIC: No history of psychosis or major depression. HEMATOLOGIC: No bleeding disorders or significant anemia. ENDOCRINE: History of type 2 diabetes MUSCULOSKELETAL: No recent joint pain or swelling. ALLERGY/IMMUNOLOGY: As mentioned above. Medications/Allergies Home Medications Medication Instructions Recorded Confirmed Last Taken Type aspirin 81 mg tablet,delayed 81 mg PO DAILY 03/29/21 07/21/22 03/28/21 History release ibuprofen 200 mg tablet 600 mg PO PRN 03/29/21 07/21/22 03/28/21 History lisinopril 2.5 mg tablet 2.5 mg PO DAILY 03/29/21 07/21/22 03/28/21 History metformin 500 mg tablet,extended 500 mg PO DAILY 03/29/21 07/21/22 03/28/21 History release 24 hr metoprolol tartrate 100 mg tablet 50 mg PO DAILY 03/29/21 07/21/22 03/28/21 History pantoprazole 40 mg tablet,delayed 40 mg PO DAILY 03/29/21 07/21/22 03/28/21 History release simvastatin 20 mg tablet 20 mg PO BEDTIME 03/29/21 07/21/22 07/20/22 History tamsulosin 0.4 mg capsule 0.8 mg PO DAILY 03/29/21 07/21/22 03/28/21 History Vitamin D Tablet 1 tab PO BID 07/21/22 07/21/22 Unknown History calcium carbonate 600 mg calcium 600 mg PO BID 07/21/22 07/21/22 Unknown History (1,500 mg) tablet (Calcium) finasteride 5 mg tablet 5 mg PO DAILY 07/21/22 07/21/22 Unknown History glipizide 10 mg tablet 10 mg PO BID 07/21/22 07/21/22 Unknown History nitroglycerin 0.4 mg sublingual 0.4 mg sublingual Q5M PRN Chest 07/21/22 07/21/22 Unknown History tablet Pain Allergies Allergy/AdvReac Type Severity Reaction Status Date / Time No Known Allergies Allergy Verified 03/29/21 08:59 Current Medications Generic Name Dose Route Start Last Admin Trade Name Bekah PRN Reason Stop Dose Admin Sodium Chloride 1,000 mls @ 75 mls/hr 07/21/22 17:59 07/21/22 18:13 Sodium Chloride 0.9% IV 75 mls/hr .[id number] ARVIN Administration Insulin Human Lispro 0 unit 07/21/22 18:00 07/21/22 18:24 Insulin Lispro 100 Unit/1 Ml SUBCUT 6 unit TIDWM ARVIN Administration Protocol PFSH Acute PFSH: Medical History BPH (benign prostatic hyperplasia) Hyperlipidemia Hypertension Prostate cancer Spine metastasis Type 2 diabetes mellitus Surgical History Hx of LASIK Family History Denies family history of CAD (coronary artery disease) Social History Smoking and tobacco status: former smoker Alcohol intake: former Vitals/I&O/Wt Last Vital Signs Temp 97.6 F 07/21/22 18:19 Pulse 68 07/21/22 18:19 Resp 16 07/21/22 18:19 BP 156/74 07/21/22 18:19 Pulse Ox 99 07/21/22 18:19 O2 Del Method 07/21/22 18:19 Weight last 48 hrs Weight 200 lb Weight 200 lb Physical Exam Narrative: GENERAL: The patient is alert and oriented times three. Not in any acute distress. HEENT: No significant pallor, icterus or lymphadenopathy.Oral cavity: There are no mucous membrane lesions. NECK: Trachea appears to be central. No masses noted. No JVD or thyromegaly appreciated. RESPIRATORY: Chest is symmetrical. No intercostals muscle retraction or any accessory muscle activation. There is no chest wall tenderness. Breath sounds are heard bilaterally. No rales or rhonchi heard. No evidence of any consolidation. BREASTS: Deferred. HEART: The heart sounds are normal. No S3 or S4. Short systolic murmur in the left sternal border. No diastolic murmurs. No pericardial rub ABDOMEN: No vessel pulsations or distention. No tenderness. No organomegaly appreciated. Bowel sounds are normally heard. : Deferred. RECTAL: Deferred. LYMPHATIC: No lymphadenopathy noted in the neck. EXTREMITIES: No edema or cyanosis. No clubbing. MUSCULOSKELETAL: No acute joint deformities or swelling SKIN: There are no significant rashes or ecchymosis NEUROPSYCHIATRIC: The patient is alert and oriented x3. Appears to be in a good mood. No tremors or rigidity noted. Data : 07/21/22 14:52 07/21/22 14:52 Other Labs: Laboratory Last Values WBC 6.8 10^3/uL (4.0-10.0) 07/21/22 14:52 RBC 4.76 10^6/uL (4.1-5.3) 07/21/22 14:52 Hgb 15.5 g/dL (11.7-16.6) 07/21/22 14:52 Hct 44.5 % (42.0-52.0) 07/21/22 14:52 MCV 93.5 fl (80-94) 07/21/22 14:52 MCH 32.6 pg (28.0-34.0) 07/21/22 14:52 MCHC 34.8 g/dL (30.0-36.0) 07/21/22 14:52 RDW 11.9 % (12.1-15.1) L 07/21/22 14:52 Plt Count 258 10^3/cmm (130-400) 07/21/22 14:52 MPV 10.5 fL (7.4-10.4) H 07/21/22 14:52 Neut % (Auto) 60.7 % 07/21/22 14:52 Lymph % (Auto) 24.9 % 07/21/22 14:52 [place] % (Auto) 8.7 % 07/21/22 14:52 Eos % (Auto) 4.1 % 07/21/22 14:52 Baso % (Auto) 1.2 % 07/21/22 14:52 Neut # (Auto) 4.09 10^3/uL (1.8-7.7) 07/21/22 14:52 Lymph # (Auto) 1.7 10^3/uL (0.8-4.8) 07/21/22 14:52 [place] # (Auto) 0.6 10^3/uL (0.2-0.9) 07/21/22 14:52 Eos # (Auto) 0.3 10^3/uL (0.0-0.8) 07/21/22 14:52 Baso # (Auto) 0.1 10^3/uL (0.0-0.1) 07/21/22 14:52 Nucleated RBC % (auto) 0 % 07/21/22 14:52 Nucleated RBCs # 0.0 /100WBC 07/21/22 14:52 D-Dimer <= 0.27 ug/mIFEU (0-0.59) 07/21/22 14:52 Sodium 136 mmol/L (136-145) 07/21/22 14:52 Potassium 4.3 mmol/L (3.5-5.1) 07/21/22 14:52 Chloride 102 mmol/L (98-107) 07/21/22 14:52 Carbon Dioxide 21 mmol/L (22-29) L 07/21/22 14:52 Anion Gap 17.3 (5-19) 07/21/22 14:52 BUN 20 mg/dL (8-23) 07/21/22 14:52 Creatinine 0.8 mg/dL (0.7-1.2) 07/21/22 14:52 GFR Calculation Not Reportable 07/21/22 14:52 Glucose 209 mg/dL (65-115) H 07/21/22 14:52 POC Glucose 201 mg/dL (70-110) H 07/21/22 18:20 Calculated Osmolality 291 mOsm/kg (285-295) 07/21/22 14:52 Calcium 9.2 mg/dL (8.5-10.5) 07/21/22 14:52 Troponin T Baseline 45 ng/L (0-15) H 07/21/22 14:52 Troponin T 120 Minute 43.92 ng/L (0-15) H 07/21/22 17:02 Delta Troponin T -1.08 ABS# (0-10) L 07/21/22 17:02 EKG 1: My Interpretation: Sinus bradycardia rate of 59 bpm. Left axis deviation. No acute ST-T changes. EKG computer-generated impression: Chest X-Ray 07/21/22 14:36 IMPRESSION: Unremarkable chest radiograph. A&P Assessment and plan (1) Atherosclerotic heart disease of [place] coronary artery with unstable angina pectoris: Patient is symptoms are consistent with unstable angina. Hemodynamically seems to be stable. He may be treated with a subcu Lovenox, beta-azam, aspirin, statin and Plavix. Echocardiogram would be helpful to evaluate LV function and rule out any other abnormalities. (2) Benign essential HTN: Blood pressures are stage II. Antihypertensive medications need to be optimized. (3) Hyperlipidemia: May continue on the current medications. (4) Type 2 diabetes mellitus: Blood sugar needs to be closely monitored. (5) Metastatic malignant neoplasm to prostate: Patient is being this is being managed by the oncologist in [place]. Plan Based on the clinical progress, further recommendations will be made. In view of his unstable anginal symptoms, he requires a cardiac catheterization, to further evaluate his coronary status and decide on further management. The need for the study was discussed with the patient in detail. The risk of bleeding, hematoma, vascular injury, myocardial infarction, CVA, renal failure and other concomitant complications were explained in detail. Patient understood this well and consented to proceed. We may go ahead and schedule his procedure for tomorrow. 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
[2022-07-21 19:34] LABS: Thyroid Stimulating Hormone 1.64 uIU/mL (0.27-4.20)
[2022-07-21] MEDS: lisinopril 10 mg Tablet PO (20:36)
--- NOTE | 2022-07-21 20:37 | ECG_ITS ---
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 Measurements Intervals [place] Rate: 60 P: 61 [place]: 166 QRS: -33 QRSD: 102 T: 0 QT: 411 QTc: 412 Interpretive Statements SINUS RHYTHM LEFT AXIS DEVIATION [QRS AXIS < -30] Compared to ECG 07/21/2022 18:10:53 Sinus bradycardia no longer present Electronically Signed On 07-22-2022 19:10:03 CDT by Andreas Wakefield M.D. [id number]
[2022-07-21] MEDS: clopidogrel 300 mg Tablet PO (20:43)
[2022-07-21] MEDS: enoxaparin 100 mg/mL Syringe 90 MG SUBCUT (20:43)
[2022-07-21 23:58] LABS: Estmated Average Glucose 206; Hemoglobin A1C 8.8 % (4.0-6.0)
[2022-07-22] VITALS (19 sets, daily range): BP systolic 111–138; BP diastolic 60–97; PULSE 50–82; RESP 7–18; TEMP 36.4–36.7; O2SAT 92–99
[2022-07-22] MEDS: nitroglycerin 1 gm/inch oint Pkt 0.5 INCH TOPICAL (02:31)
[2022-07-22] MEDS: nitroglycerin 0.4 mg sublingual Tablet SUBLINGUAL (03:10)
[2022-07-22 06:09] LABS: Glucose Point of Care 150 mg/dL (70-110)
[2022-07-22] MEDS: diphenhydrAMINE 50 mg Capsule PO (06:40)
[2022-07-22] MEDS: sodium chloride 0.9% 1,000 ML 50 ML IV (06:43)
--- NOTE | 2022-07-22 08:03 | XACV_ITS ---
Exam Room: [facility] Ht: 188 cm Wt: 91 kg BSA: 2.18 m2 Gender: Male : 1945 Any Known Allergies: Other Exam Priority: Routine Procedure(s): Procedure Description: Diagnostic procedure Procedure Description: PCI procedure Procedure Description: Left Heart Catheterization Procedure Description: Drug Eluting Coronary Stent Procedure Description: PTCA Procedure Description: Miscellaneous Procedure Description: ACT Procedure Description: Coronary Angiography Ashu CARMONA; Diagnostic Cath Status: Urgent Diagnostic Findings * Left main is a medium caliber vessel with no significant to stenotic lesions. * The left anterior descending artery is a medium caliber vessel which was found to have around 50% stenosis right after the first diagonal branch. The first diagonal branch is a small to medium caliber vessel which has an ostial narrowing of around 50%. The distal artery appears to wrap around the LV apex. Minimal intimal irregularities are noted in the distal artery. * The left circumflex artery is a medium caliber vessel which was found to have around 30% stenosis after the first obtuse marginal branch. The first obtuse marginal artery was found to have around 30 to 40% irregular narrowing proximally. No other significant stenotic lesions were noted. * The right coronary artery is a medium caliber dominant vessel which was found to have 99% tapering lesion after the first RV branch. The distal artery was found to have around 50-60% irregular narrowing before its terminal bifurcation. PDA and the PLV branches are found to have minimal intimal irregularities. PCI Status: Urgent PCI Indication: New Onset Angina <= 2 months Interventional Findings * Procedure detail: We engaged RCA with JR4 guide catheter. IV heparin was administered to maintain ACT 250 S. 0.014 run-through guidewire was used to cross critical mid RCA stenosis and was put in distal vessel. We predilated the stenosis with 2.5 x 15 mm semicompliant balloon. This was followed by placement of 3.5 x 22 mm resolute Kofi drug-eluting stent. Proximal section of the stent was postdilated with 3.5 x 12mm NC balloon. At this time distal lesion appeared to be more significant and was 70%. We predilated with 2.5 x 15 mm semicompliant balloon. This was followed by placement of 3.0 x 18 mm resolute Kofi drug-eluting stent. Final angiogram was performed that showed excellent stent expansion, no residual stenosis and ANNA MARIE-3 flow. Guidewire and guide catheter were removed. 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 * Mid Right Coronary Artery: 99% stenosis treated with a AB TREK 2.50X15 RX BALLOON, MDT R KOFI 3.5X22 CAIN, and MDT NC EUPHORA RX [id number] BALLOON. 0% residual stenosis, ANNA MARIE: 3 flow. * Distal Right Coronary Artery: 70% stenosis treated with a AB TREK 2.50X15 RX BALLOON, and MDT R KOFI 3.0X18 CAIN. 0% residual stenosis, ANNA MARIE: 3 flow. Conclusions 1. 76-year-old white male with a history of hypertension, diabetes and dyslipidemia presenting with unstable anginal symptoms and features of a non-ST elevation myocardial infarction. Because of his ongoing recurrent episodes of chest pain, a cardiac catheterization was recommended. Patient underwent left heart catheterization with left and right coronary angiogram today. The findings are as follows. 2. 99% lesion in the mid RCA with a 50 to 60% lesions in the distal RCA. Mild to moderate disease in the mid LAD/proximal segment of the first diagonal branch of the LAD. Mild disease in the left circumflex artery and proximal segment of the first obtuse marginal artery. LVEDP of 16 mmHg. 3. Based on the angiogram findings, it was thought to be appropriate to consider PCI of the RCA lesions. I discussed and reviewed the cardiac catheterization data with the Dr. Adams. Dr. Adams concurred with this plan and took over further management of this patient at this point. 4. Successful revascularization of RCA with CAIN x2. 5. Mid Right Coronary Artery was treated with a Balloon, Drug Eluting Stent, and Balloon. 6. Distal Right Coronary Artery was treated with a Balloon, and Drug Eluting Stent. Recommendations * Dual antiplatelet therapy with aspirin and Plavix for at least 1 year. * High intensity statin therapy. * Outpatient cardiology follow-up in 2 to 4 weeks. Interventional RX Recommendation: PCI w/o planned CABG Diagnostic RX Recommendation: PCI w/o planned CABG Anticoagulation: Heparin LV EDP: 16 mmHg Left Ventriculography Findings: * LV gram was not performed because of the limitations on the dye usage. Pressures Phase:Rest AO : 131 / 62 ( 88 ) @ 9:28:00 AM 133 / 60 ( 88 ) @ 9:28:00 AM LV : 136 / -4 / 16 @ 9:28:00 AM 133 / -2 / 16 @ 9:28:00 AM Valves Phase:DefaultPhase AV : 0.0 @ 9:08:21 AM 0.0 @ 9:08:21 AM AV Mean Gradient: 0.0 @ 9:08:21 AM Clinical Evaluation EBL: 5mL-10mL Procedural Details Procedure Consent Obtained. Admit Source: In Patient. Pre-Procedure Time Out. Identified patient by full name and date of as verbalized by the patient/guarantor. Does the consent match the physician's order: Yes. Accurate & Complete Informed Consent: Yes. Inpatient/Outpatient History & Physical on Chart: Yes. If H&P is completed, is and addenduem needed: N/A; If yes, is the addendum complete: N/A. Visualize and Verify Site with Patient/Guarantor: N/A. Relevant Radiology Images available: N/A. Pre-op teaching completed and patient verbalized understanding. The risks, benefits, and alternatives of sedation and/or procedure were discussed by physician. The patient agrees to continue. Procedure started. [facility] Clinical Fraility Score: 3: Managing Well. Pop[employer] Vendor Indications: New Onset Angina. Chest Pain Symptom Assessment: Typical Angina Symptoms. Correct patient, site and procedure confirmed by cath team. Current diagnosis: Chest Pain. PERRLA. Strong, equal hand social work lecturer bilaterally. Lungs clear x 5 lobes. IV Site on Arrival: 20 gauge in the right wrist. Pre Procedural Pulses: right radial was 2+. Pre Procedural Pulses: bilateral dorsalis pedis was 2+. Oxygen started at 2liters/min via nasal canula. right groin was prepped with chloroprep then draped in the usual sterile fashion. right radial was prepped with chloroprep then draped in the usual sterile fashion. Physician notified. Baseline sample Acquired. HR: 68 BPM. Physician arrived. Hemodynamic formulas in Rest were re-calculated based on hemoglobin value from 07/22/2022 12:00:00 AM. Physician scrubbed in. Immediate Pre-Procedure Time Out. Correct Patient: Yes; Correct Procedure: Yes; Correct Site: Yes; Correct Patient Position: Yes; Correct Supplies: Yes; Dried Flammable Prep: Yes; Blood Products Available: N/A;. Lidocaine 1% infiltrated to the right radial. Arterial access obtained. A 5 icelandic Humberto catheter in over wire. Multiple views taken of left coronary artery. Catheter removed over the exchange wire. A 6 icelandic JR4 catheter in over wire. Multiple views taken of right coronary artery. Catheter removed over the exchange wire. A 5 icelandic Angled Pig catheter in over wire. EDP Sample taken: LV 136/-5,16; HR: 71 BPM; SpO2: 98%. Pullback taken: LV 133/-3,16; AO 131/62(88); Mean: 0mmHg, Peak to Peak: 0mmHg, SEP: 7sec/min; HR: 71 BPM; SpO2: 98%. Physician scrubbed out. Patient's family unavailable. Dr. Adams scrubbed in to perform intervention. ACT drawn. Results 158 seconds. Therapeutic limits - pre-heparin administration 90-150 seconds and monitoring heparin during a vascular procedure >250 seconds. 6 icelandic JR 4 guide catheter was inserted over the wire. Runthrough guidewire was advanced through the guide catheter to lesion in the mid RCA. Guidewire advanced across lesion. Balloon inserted to lesion in the mid RCA. Inflation number : 1 A AB TREK 2.50X15 RX BALLOON was prepped and advanced across the Mid RCA , then inflated to 12 [place]HEZ for 0:17 seconds. Angiography performed, checking results. Balloon out. Inflation Number : 2 A MDT R KOFI 3.5X22 CAIN -Lot Number#[id number] was prepped and advanced across the Mid RCA. The stent was deployed at 12 S[place]HEZ for 0:23 seconds. EXP 02-10-2025. Stent balloon out over wire. Inflation number : 3 A MDT NC EUPHORA RX [id number] BALLOON was prepped and advanced across the Mid RCA , then inflated to 16 S[place]HEZ for 0:15 seconds. Balloon out. Angiography performed, checking results. Inflation number : 1 A AB TREK 2.50X15 RX BALLOON was prepped and advanced across the Dist RCA , then inflated to 12 [place] for 0:11 seconds. Inflation number: 2 The AB TREK 2.50X15 RX BALLOON was reinflated across the Dist RCA, to 12 S[place]Z for 0:15 seconds. Balloon out. Stent inserted to lesion in the distal RCA. Inflation Number : 3 A MDT R KOFI 3.0X18 CAIN -Lot Number#[id number] was prepped and advanced across the Dist RCA. The stent was deployed at 12 S[place]HEZ for 0:17 seconds. EXP 11-23-2024. Stent balloon out over wire. Wire out. Angiography performed, checking results. ACT drawn. Results seconds. Therapeutic limits - pre-heparin administration 90-150 seconds and monitoring heparin during a vascular procedure >250 seconds. Guide catheter out. Post-op diagnosis: Critical mid RCA stenosis, Severe distal RCA stenosis. Status post PCI , placement of 2 stents. Post Procedure: Pulses reassessed and unchanged. PERRLA. Strong, equal hand social work lecturer bilaterally. No VTE prophylaxis required. Medication's Wasted: Lidocaine 1% = 3 mL. Medication's Wasted: Nitro = 49.7 mg. Medication's Wasted: Other = Fentanyl 25 mcg. Medication's Wasted: Other = Versed 1 mg. Total IV fluids: 29 mL. Complications: None. Estimated blood loss: 5mL-10mL. Responsiveness - Normal response to verbal stimuli; alert and oriented, PERRLA. Airway - Unaffected, no intervention required; spontaneous ventilation. Circulation: W/N/L, pulses unchanged. Nausea/Vomiting: N/A. Procedure completed. A TR Band was successful obtaining hemostatsis at the Right Radial artery insertion site. Medication's Wasted: Heparin = 3000 unit. Patient transferred by wheelchair to [facility]. Vital chart was stopped. Access Site Site: Right Radial artery Sheath Size: 6 Fr Hemostasis Method: TR Band Hemostasis Success: Successful Procedure Medications Start: 8:11 AM Stop: 8:11 AM Medication: Versed Amount: 1 mg Route: I.V. Start: 8:11 AM Stop: 8:11 AM Medication: Fentanyl Amount: 50 mcg Route: I.V. Start: 8:15 AM Stop: 8:15 AM Medication: Verapamil Amount: 5 mg Route: I.A. Start: 8:15 AM Stop: 8:15 AM Medication: Nitrogylcerin Amount: 200 mcg Route: I.A. Start: 8:16 AM Stop: 8:16 AM Medication: 0.9% Saline Amount: 250 ml Route: I.V. bolus Start: 8:17 AM Stop: 8:17 AM Medication: Heparin Amount: 5000 units Route: I.V. Start: 8:34 AM Stop: 8:34 AM Medication: Nitrogylcerin Amount: 100 mcg Route: I.A. Start: 8:34 AM Stop: 8:34 AM Medication: Heparin Amount: 4000 units Route: I.V. Start: 8:37 AM Stop: 8:37 AM Medication: Versed Amount: 1 mg Route: I.V. Start: 8:43 AM Stop: 8:43 AM Medication: Heparin Amount: 1000 units Route: I.V. Start: 8:46 AM Stop: 8:46 AM Medication: Versed Amount: 1 mg Route: I.V. Start: 8:48 AM Stop: 8:48 AM Medication: Fentanyl Amount: 25 mcg Route: I.V. Start: 8:49 AM Stop: 8:49 AM Medication: Heparin Amount: 1000 units Route: I.V. Start: 9:00 AM Stop: 9:00 AM Medication: Heparin Amount: 2000 units Route: I.V. Start: 9:00 AM Stop: 9:00 AM Medication: Plavix Amount: 300 mg Route: P.O. Start: 9:00 AM Stop: 9:00 AM Medication: Aspirin Amount: 325 mg Route: P.O. I, the attending physician, have reviewed and verified all procedure medications. Yes, all medications given per verbal order History/Risk Factors Hypertension: Yes Dyslipidemia: Yes Peripheral Arterial Disease (PAD): No Myocardial Infarction (DC): No Obesity: No Renal Disease: No Tobacco Use: Former Prior Interventions PCI: No CABG: No Valve Surgery: No Report Signatures Interventional Workflow Finalized by Juan Adams MD on 07/24/2022 12:27 AM Diagnostic Workflow Finalized by Dr Andreas Wakefield MD [facility] on 07/22/2022 01:03 PM
--- NOTE | 2022-07-22 08:04 | W.PM.OPSUD ---
Surgery/Procedure H&P Update DATE OF PROCEDURE: July 22, 2022 DATE H&P PERFORMED: 06/20/22 H&P UPDATE INFORMATION: I have reviewed H&P completed within last 30 days, I have examined patient prior to procedure and No changes to prior documentation PREOP DIAGNOSIS: NSTEMI PRIMARY INDICATION FOR PROCEDURE: UAP/NSTEMI PLANNED PROCEDURE: Operation Date: 07/22/22 08:30 Proposed Procedures p Cardiac Catheterization(Left) - Andreas Wakefield MD PATIENT REASSESSED PRIOR TO SEDATION, WITH NO CHANGE NOTED: Yes PHYSICAL EXAM: alert, oriented x 3, clear to auscultation bilaterally and regular rate & rhythm AIRWAY EVAL/ANESTHESIA PLAN: normal airway, see other exam findings, ASA II, Monitored Anesthesia, Local Anesthesia, Risks, benefits & alternatives of sedation and/or procedure discussed and Patient agrees to continue as planned
--- NOTE | 2022-07-22 08:05 | P.PN_ITS ---
Subjective Subjective: Patient had an episode of chest pain around 2:00 this morning. He responded to sublingual nitro. Has not had any recurrence since then. No fever or chills. Medications: Medication Review Details: Current Medications Acetaminophen (Acetaminophen 500 Mg Tablet) 500 mg PO Q4H PRN PRN Reason: fever Albuterol/Ipratropium (Ipratropium-Albuterol 3 Ml Neb) 3 ml INHALATION Q6H PRN PRN Reason: SHORTNESS OF BREATH Aspirin (Aspirin 81 Mg Ec Tablet) 81 mg PO DAILY [facility] Dextrose (Dextrose 50% Syringe 50 Ml) 25 ml IVP ONCE PRN; Protocol PRN Reason: hypoglycemia protocol Dextrose (Dextrose 50% Syringe 50 Ml) 50 ml IVP PRN PRN; Protocol PRN Reason: hypoglycemia protocol Enoxaparin Sodium (Enoxaparin 100 Mg/Ml Syringe) 90 mg 1 mg/kg (90 mg) SUBCUT Q12H [facility] Last Admin: 07/21/22 20:43 Dose: 90 mg Finasteride (Finasteride 5 Mg Tablet) 5 mg PO DAILY [facility] Glucagon (Glucagon 1 Mg/Ml Inj 1 Ml) 1 mg IM ONCE PRN; Protocol PRN Reason: Adult Acute Hypoglycemia Prot. Dextrose (D5w) 500 mls @ 100 mls/hr IV ONCE PRN; Protocol PRN Reason: Adult Acute Hypoglycemia Prot Sodium Chloride (Sodium Chloride 0.9%) 1,000 mls @ 75 mls/hr IV .[id number] [facility] Last Infusion: 07/22/22 07:32 Dose: Infused Sodium Chloride (Sodium Chloride 0.9%) 1,000 mls @ 50 mls/hr IV .Q20H ONE Stop: 07/23/22 01:59 Last Admin: 07/22/22 06:43 Dose: 50 mls/hr Nitroglycerin/Dextrose (Nitroglycerin Drip) 50 mg in 250 mls @ 0 mls/hr IV .Q0M [facility]; Protocol Insulin Human Lispro (Insulin Lispro 100 Unit/1 Ml) 0 unit SUBCUT TIDWM [facility]; Protocol Last Admin: 07/21/22 18:24 Dose: 6 unit Isosorbide Mononitrate (Isosorbide Mononitrate Er 30 Mg Tablet) 30 mg PO DAILY [facility] Last Admin: 07/22/22 06:45 Dose: Not Given Lisinopril (Lisinopril 10 Mg Tablet) 10 mg PO DAILY [facility] Last Admin: 07/21/22 20:36 Dose: 10 mg Metoprolol Tartrate (Metoprolol Tartrate 50 Mg Tablet) 50 mg PO BIDWM [facility] Morphine Sulfate (Morphine Ir 15 Mg Tablet) 15 mg PO Q6H PRN PRN Reason: pAIN Nitroglycerin (Nitroglycerin 0.4 Mg Sublingual Tablet) 0.4 mg SUBLINGUAL Q5M PRN PRN Reason: Chest Pain Last Admin: 07/22/22 03:10 Dose: 0.4 tab Nitroglycerin (Nitroglycerin 1 Gm/Inch Oint Pkt) 0.5 inch TOPICAL Q6H [facility] Last Admin: 07/22/22 02:31 Dose: 0.5 inch Ondansetron HCl (Ondansetron 2 Mg/Ml Sdv 2 Ml) 4 mg IVP Q6H PRN PRN Reason: NAUSEA AND VOMITING Pantoprazole Sodium (Pantoprazole Dr 40 Mg Tablet) 40 mg PO DAILY [facility] Senna/Docusate Sodium (Sennosides-Docusate Tablet) 1 tab PO DAILY [facility] Tamsulosin HCl (Tamsulosin 0.4 Mg Capsule) 0.8 mg PO DAILY [facility] Vitals/I&O/Wt Last Vital Signs Temp 97.7 F 07/22/22 07:45 Pulse 70 07/22/22 07:45 Resp 16 07/22/22 07:45 BP 125/67 07/22/22 07:45 Pulse Ox 94 07/22/22 07:45 O2 Del Method 07/22/22 07:45 07/21/22 07/22/22 07/22/22 22:59 06:59 14:59 Intake Total 1000 / 1000 Balance 1000 / 1000 Weight last 48 hrs Weight 202 lb 6 oz Weight 200 lb Weight 200 lb Physical Exam Narrative: GENERAL: The patient is alert and oriented times three. Not in any acute distress. HEENT: No significant pallor, icterus or lymphadenopathy.Oral cavity: There are no mucous membrane lesions. NECK: Trachea appears to be central. No masses noted. No JVD or thyromegaly appreciated. RESPIRATORY: Chest is symmetrical. No intercostals muscle retraction or any accessory muscle activation. There is no chest wall tenderness. Breath sounds are heard bilaterally. No rales or rhonchi heard. No evidence of any consolidation. BREASTS: Deferred. HEART: The heart sounds are normal. No S3 or S4. Short systolic murmur in the left sternal border. No diastolic murmurs. No pericardial rub ABDOMEN: No vessel pulsations or distention. No tenderness. No organomegaly appreciated. Bowel sounds are normally heard. : Deferred. RECTAL: Deferred. LYMPHATIC: No lymphadenopathy noted in the neck. EXTREMITIES: No edema or cyanosis. No clubbing. MUSCULOSKELETAL: No acute joint deformities or swelling SKIN: There are no significant rashes or ecchymosis NEUROPSYCHIATRIC: The patient is alert and oriented x3. Appears to be in a good mood. No tremors or rigidity noted. Data : 07/22/22 09:35 07/22/22 09:35 Other Labs: Current Medications Laboratory Last Values WBC 7.9 10^3/uL (4.0-10.0) 07/22/22 09:35 RBC 4.64 10^6/uL (4.1-5.3) 07/22/22 09:35 Hgb 15.0 g/dL (11.7-16.6) 07/22/22 09:35 Hct 43.8 % (42.0-52.0) 07/22/22 09:35 MCV 94.4 fl (80-94) H 07/22/22 09:35 MCH 32.3 pg (28.0-34.0) 07/22/22 09:35 MCHC 34.2 g/dL (30.0-36.0) 07/22/22 09:35 RDW 11.9 % (12.1-15.1) L 07/22/22 09:35 Plt Count 239 10^3/cmm (130-400) 07/22/22 09:35 MPV 10.4 fL (7.4-10.4) 07/22/22 09:35 Neut % (Auto) 77.4 % 07/22/22 09:35 Lymph % (Auto) 13.5 % 07/22/22 09:35 [place] % (Auto) 4.5 % 07/22/22 09:35 Eos % (Auto) 3.7 % 07/22/22 09:35 Baso % (Auto) 0.4 % 07/22/22 09:35 Neut # (Auto) 6.14 10^3/uL (1.8-7.7) 07/22/22 09:35 Lymph # (Auto) 1.1 10^3/uL (0.8-4.8) 07/22/22 09:35 [place] # (Auto) 0.4 10^3/uL (0.2-0.9) 07/22/22 09:35 Eos # (Auto) 0.3 10^3/uL (0.0-0.8) 07/22/22 09:35 Baso # (Auto) 0.0 10^3/uL (0.0-0.1) 07/22/22 09:35 Nucleated RBC % (auto) 0 % 07/22/22 09:35 Nucleated RBCs # 0.0 /100WBC 07/22/22 09:35 D-Dimer <= 0.27 ug/mIFEU (0-0.59) 07/21/22 14:52 Sodium 138 mmol/L (136-145) 07/22/22 09:35 Potassium 4.1 mmol/L (3.5-5.1) 07/22/22 09:35 Chloride 102 mmol/L (98-107) 07/22/22 09:35 Carbon Dioxide 26 mmol/L (22-29) 07/22/22 09:35 Anion Gap 14.1 (5-19) 07/22/22 09:35 BUN 18 mg/dL (8-23) 07/22/22 09:35 Creatinine 0.9 mg/dL (0.7-1.2) 07/22/22 09:35 GFR Calculation Not Reportable 07/22/22 09:35 Glucose 175 mg/dL (65-115) H 07/22/22 09:35 POC Glucose 150 mg/dL (70-110) H 07/22/22 05:56 Estimat Average Glucose 206 07/21/22 14:52 Hemoglobin A1c 8.8 % (4.0-6.0) H 07/21/22 14:52 Calculated Osmolality 292 mOsm/kg (285-295) 07/22/22 09:35 Calcium 8.9 mg/dL (8.5-10.5) 07/22/22 09:35 Magnesium 1.7 mg/dL (1.7-2.3) 07/22/22 09:35 Troponin T Baseline 45 ng/L (0-15) H 07/21/22 14:52 Troponin T 120 Minute 43.92 ng/L (0-15) H 07/21/22 17:02 Delta Troponin T -1.08 ABS# (0-10) L 07/21/22 17:02 Troponin T Hi Sens 6Hr 48.40 ng/L (0-15) H 07/21/22 20:12 Troponin T Hi Sens 6Hr Delta 3.40 ng/L (0-12) 07/21/22 20:12 C-Reactive Protein 4.8 mg/L (0.0-4.9) 07/22/22 09:35 TSH 1.64 uIU/mL (0.27-4.20) 07/21/22 17:02 A&P Assessment and plan (1) Atherosclerotic heart disease of [place] coronary artery with unstable angina pectoris: Patient is symptoms are consistent with unstable angina. Hemodynamically seems to be stable. Patient medically with her medications. For further evaluation of his symptoms, a cardiac catheterization would be appropriate. This was discussed with the patient the patient. The risk of bleeding, hematoma, vascular injury, myocardial infarction, CVA, renal failure and other concomitant complications were explained in detail. Patient understood this well and consented to proceed. He may go ahead and do the cardiac catheterization this morning. (2) Benign essential HTN: Blood pressure seems to be in the normal range at this time. (3) Hyperlipidemia: May continue on the current medications. (4) Type 2 diabetes mellitus: Blood sugar needs to be closely monitored. (5) Metastatic malignant neoplasm to prostate: Patient is being this is being managed by the oncologist in [place]. Plan Based on the angiogram findings further recommendations will be made. Addendum Patient underwent left heart catheterization with left and right coronary angiogram today. He was found to have a subtotal occlusion of the mid RCA. Moderate disease was noted in the distal RCA. Mild to moderate disease was noted in the left coronary arteries. Patient underwent a PCI of the RCA lesion by Dr. Adams. Attestations Medical Necessity Statement*: Patient requires continued hospital stay for close monitoring and further management Coding Level of Care Code Acute Assistant Coach for Chg Fwd History Expanded Problem Focused Exam Detailed Medical Decision Making Moderate Complexity Diagnoses Atherosclerotic heart disease of [place] coronary artery with unstable angina pectoris I25.110 Benign essential HTN I10 Hyperlipidemia E78.5 Type 2 diabetes mellitus E11.9 Metastatic malignant neoplasm to prostate C79.82
[2022-07-22 09:46] LABS: Basophils % 0.4 %; Eosinophils # 0.3 10^3/uL (0.0-0.8); Eosinophils % 3.7 %; Hematocrit 43.8 % (42.0-52.0); Lymphocytes # 1.1 10^3/uL (0.8-4.8); Lymphocytes % 13.5 %; Mean Corpuscular HGB Conc 34.2 g/dL (30.0-36.0); Mean Corpuscular Hemoglobin 32.3 pg (28.0-34.0); Mean Corpuscular Volume 94.4 fl (80-94); Mean Platelet Volume 10.4 fL (7.4-10.4); Monocytes # 0.4 10^3/uL (0.2-0.9); Monocytes % 4.5 %; Neutrophils # 6.14 10^3/uL (1.8-7.7); Neutrophils % 77.4 %; Nucleated Red Blood Cells % 0 %; Platelet Count 239 10^3/cmm (130-400); Red Blood Count 4.64 10^6/uL (4.1-5.3); Red Cell Distribution Width 11.9 % (12.1-15.1); White Blood Count 7.9 10^3/uL (4.0-10.0)
--- NOTE | 2022-07-22 09:57 | PM.PN ---
Subjective Subjective: Patient required nitro overnight This morning he was chest pain-free, Dr. Bettencourt has been consulted for angioplasty RCA stenosis noted Vitals/I&O/Wt Last Vital Signs Temp 97.7 F 07/22/22 07:45 Pulse 70 07/22/22 07:45 Resp 16 07/22/22 07:45 BP 125/67 07/22/22 07:45 Pulse Ox 94 07/22/22 07:45 O2 Del Method 07/22/22 07:45 07/21/22 07/22/22 07/22/22 22:59 06:59 14:59 Intake Total 1000 / 1000 Balance 1000 / 1000 Weight last 48 hrs Weight 91.796 kg Weight 90.718 kg Weight 90.718 kg Physical Exam Narrative: Chest pain-free Euvolemic Pleasant cooperative Currently on room air Abdomen soft Nonfocal neuro exam S1, S2 Data : 07/22/22 09:35 07/21/22 14:52 A&P Assessment and plan (1) Metastatic malignant neoplasm to prostate: (2) Atherosclerotic heart disease of [place] coronary artery with unstable angina pectoris: (3) Angina at rest: (4) BPH (benign prostatic hyperplasia): (5) Type 2 diabetes mellitus: (6) Hyperlipidemia: Plan Unstable angina Patient is getting angioplasty today Normotensive Continue tamsulosin Currently on room air BPH without active obstructive symptoms Hemodynamically stable Full code Cardiac diet after the procedure Attestations Medical Necessity Statement*: Continue medical management Time Spent in Patient Care: 40 Coding Level of Care Code Acute Three Dimensional Map Modeler for [facility] Fwd Diagnoses Metastatic malignant neoplasm to prostate C79.82 Atherosclerotic heart disease of [place] coronary artery with unstable angina pectoris I25.110 Angina at rest I20.8 BPH (benign prostatic hyperplasia) N40.0 Type 2 diabetes mellitus E11.9 Hyperlipidemia E78.5
[2022-07-22 10:04] LABS: Anion Gap 14.1 (5-19); Blood Urea Nitrogen 18 mg/dL (8-23); C Reactive Protein 4.8 mg/L (0.0-4.9); Calcium 8.9 mg/dL (8.5-10.5); Carbon Dioxide 26 mmol/L (22-29); Chloride 102 mmol/L (98-107); Glucose 175 mg/dL (65-115); Magnesium 1.7 mg/dL (1.7-2.3); Osmolality Calculated 292 mOsm/kg (285-295); Potassium 4.1 mmol/L (3.5-5.1); Sodium 138 mmol/L (136-145)
[2022-07-22] MEDS: aspirin 81 mg EC Tablet PO (10:56)
[2022-07-22] MEDS: finasteride 5 mg Tablet PO (10:56)
[2022-07-22] MEDS: tamsulosin 0.4 mg Capsule 0.8 MG PO (10:57)
[2022-07-22] MEDS: pantoprazole DR 40 mg Tablet PO (10:57)
[2022-07-22 11:29] LABS: Glucose Point of Care 168 mg/dL (70-110)
[2022-07-22] MEDS: insulin lispro 100 unit/1 mL SUBCUT ×2 (13:24→17:44)
[2022-07-22 17:07] LABS: Glucose Point of Care 243 mg/dL (70-110)
[2022-07-22] MEDS: metoprolol tartrate 50 mg Tablet PO (17:44)
[2022-07-22] MEDS: sodium chloride 0.9% 1,000 ML 75 ML IV (20:16)
[2022-07-22 21:21] LABS: Glucose Point of Care 194 mg/dL (70-110)
[2022-07-23] VITALS: BP 137/80; PULSE 69; RESP 18; TEMP 36.4; O2SAT 95
--- NOTE | 2022-07-23 03:42 | PC.NURSE ---
The patient refused both scheduled doses of nitro, stating he no longer needed then after getting stents placed.
[2022-07-23 05:27] LABS: Blood Urea Nitrogen 20 mg/dL (8-23); Calcium 8.9 mg/dL (8.5-10.5); Carbon Dioxide 25 mmol/L (22-29); Chloride 103 mmol/L (98-107); Glucose 195 mg/dL (65-115); Osmolality Calculated 290 mOsm/kg (285-295); Sodium 136 mmol/L (136-145)
[2022-07-23 05:29] VITALS: BP 123/69; PULSE 67; RESP 18; TEMP 36.6; O2SAT 18
[2022-07-23 05:29] LABS: Anion Gap 12.1 (5-19); Potassium 4.1 mmol/L (3.5-5.1)
[2022-07-23 06:00] VITALS: PULSE 101
[2022-07-23 06:17] LABS: Glucose Point of Care 191 mg/dL (70-110)
[2022-07-23 07:32] VITALS: BP 152/82; PULSE 71; RESP 16; TEMP 36.6; O2SAT 96
[2022-07-23 07:49] VITALS: PULSE 74; RESP 16; O2SAT 98
--- NOTE | 2022-07-23 08:32 | P.PN_ITS ---
Subjective Subjective: Patient is doing well. Denies chest pain. Exercise is normal Vitals/I&O/Wt Last Vital Signs Temp 97.9 F 07/23/22 07:32 Pulse 74 07/23/22 07:49 Resp 16 07/23/22 07:49 BP 152/82 07/23/22 07:32 Pulse Ox 98 07/23/22 07:49 O2 Del Method 07/23/22 07:49 07/22/22 07/23/22 07/23/22 22:59 06:59 14:59 Intake Total 1109.167 / 2600.000 480 / 3080.000 Balance 1109.167 / 2600.000 480 / 3080.000 Weight last 48 hrs Weight 200 lb 1.6 oz Weight 202 lb 6 oz Weight 200 lb Weight 200 lb Physical Exam Narrative: GENERAL: Patient is alert, awake and oriented x3. [] NECK: No jugular vein distension. [] HEENT: No cyanosis. No icterus. No pallor. [] HEART: Regular S1 and S2. No murmur, rub or gallop. [] LUNGS: Clear to auscultate bilaterally. [] ABDOMEN: Soft, nontender and nondistended. Positive bowel sounds. No guarding, rebound or tenderness. [] CENTRAL NERVOUS SYSTEM: Grossly nonfocal. [] EXTREMITIES: Lower extremities with 1+ edema bilaterally. Pulses palpable in the lower extremities, both dorsalis pedis and posterior tibial. [] Data : 07/22/22 09:35 07/23/22 04:20 A&P Assessment and plan (1) Atherosclerotic heart disease of [place] coronary artery with unstable angina pectoris: Patient remains successful revascularization of the mid and distal RCA with CAIN x2. Had critical 99% stenosis in mid RCA had severe distal RCA stenosis. Continue aspirin and Plavix for at least 1 year High intensity statin therapy (2) Benign essential HTN: Blood pressure is controlled (3) Hyperlipidemia: And consistent in therapy (4) Type 2 diabetes mellitus: Blood sugar needs to be closely monitored. (5) Metastatic malignant neoplasm to prostate: Patient is being this is being managed by the oncologist in [place]. Plan Patient is stable to be discharged from cardiology standpoint. Please call with questions Attestations Medical Necessity Statement*: Care expected to cross 2 midnights. 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
[2022-07-23] MEDS: tamsulosin 0.4 mg Capsule 0.8 MG PO (09:45)
[2022-07-23] MEDS: lisinopril 10 mg Tablet PO (09:46)
[2022-07-23] MEDS: pantoprazole DR 40 mg Tablet PO (09:46)
[2022-07-23] MEDS: finasteride 5 mg Tablet PO (09:46)
[2022-07-23] MEDS: isosorbide mononitrate ER 30 mg Tablet PO (09:46)
[2022-07-23] MEDS: aspirin 81 mg EC Tablet PO (09:46)
[2022-07-23] MEDS: metoprolol tartrate 50 mg Tablet PO (09:46)
[2022-07-23] MEDS: insulin lispro 100 unit/1 mL SUBCUT (09:48)
[2022-07-23] MEDS: clopidogrel 75 mg Tablet PO (09:49)
--- NOTE | 2022-07-23 10:55 | P.DS_ITS ---
Discharge Providers Date of Admission: 07/21/22 17:59 Date of Discharge: July 23, 2022 Attending Provider at Admission: Stephanie Edge MD Attending Provider at Discharge: Stephanie Edge MD Primary Care Provider: Cynthia Jj MD Diagnoses at Discharge Discharge Diagnosis (1) Atherosclerotic heart disease of [place] coronary artery with unstable angina pectoris: Status: Acute (2) Benign essential HTN: Status: Acute (3) Hyperlipidemia: Status: Acute (4) Type 2 diabetes mellitus: Status: Acute (5) Metastatic malignant neoplasm to prostate: Status: Acute Reason for Visit Reason for Visit: Chest Pain Hospital Course Hospital Course 76-year-old male who presented with typical chest pain, cardiology was consulted right away by myself in the ER, patient went for coronary angiogram which showed significant coronary disease Dr. Adams was consulted by Dr. Wakefield 2 stents were placed in RCA patient's symptoms improved significantly, he remained hemodynamically stable, he will get dual antiplatelet therapy, follow-up with Dr. Wakefield outpatient, his echo showed preserved ejection fraction without regional wall motion abnormality, D-dimer 0.2. Is here for has not been reported I am not sure about his actual value I will discontinue metformin at the time of discharge He can follow-up with his PCP for second antihyperglycemic agent hemoglobin A1c is 8 Continue glipizide At the time of discharge she will get aspirin, Plavix, atorvastatin, Imdur, lisinopril, metoprolol, Ideally his blood pressure should be below 130 mmHg, he might need titration of his antih hypertensive agents Physical Exam Narrative: Chest pain-free Euvolemic Pleasant cooperative Currently on room air Abdomen soft Nonfocal neuro exam S1, S2 Discharge Data Studies Completed and Pending Completed Studies During Hospitalization Category Date Time Status XR chest 1V portable [id number] Stat Exams 07/21/22 14:36 Completed CV. echo complete* [id number] Routine Ultrasound 07/21/22 17:59 Completed Pending at discharge Category Date Time Status VOLTMETER OPERATOR request for service Routine Exams 07/22/22 05:48 Ordered VOLTMETER OPERATOR request for service Routine Exams 07/22/22 08:03 Ordered Radiology Impressions Chest X-Ray 07/21/22 14:36 IMPRESSION: Unremarkable chest radiograph. Laboratory Results WBC 7.9 10^3/uL (4.0-10.0) 07/22/22 09:35 RBC 4.64 10^6/uL (4.1-5.3) 07/22/22 09:35 Hgb 15.0 g/dL (11.7-16.6) 07/22/22 09:35 Hct 43.8 % (42.0-52.0) 07/22/22 09:35 MCV 94.4 fl (80-94) H 07/22/22 09:35 MCH 32.3 pg (28.0-34.0) 07/22/22 09:35 MCHC 34.2 g/dL (30.0-36.0) 07/22/22 09:35 RDW 11.9 % (12.1-15.1) L 07/22/22 09:35 Plt Count 239 10^3/cmm (130-400) 07/22/22 09:35 MPV 10.4 fL (7.4-10.4) 07/22/22 09:35 Neut % (Auto) 77.4 % 07/22/22 09:35 Lymph % (Auto) 13.5 % 07/22/22 09:35 Jerome % (Auto) 4.5 % 07/22/22 09:35 Eos % (Auto) 3.7 % 07/22/22 09:35 Baso % (Auto) 0.4 % 07/22/22 09:35 Neut # (Auto) 6.14 10^3/uL (1.8-7.7) 07/22/22 09:35 Lymph # (Auto) 1.1 10^3/uL (0.8-4.8) 07/22/22 09:35 Jerome # (Auto) 0.4 10^3/uL (0.2-0.9) 07/22/22 09:35 Eos # (Auto) 0.3 10^3/uL (0.0-0.8) 07/22/22 09:35 Baso # (Auto) 0.0 10^3/uL (0.0-0.1) 07/22/22 09:35 Nucleated RBC % (auto) 0 % 07/22/22 09:35 Nucleated RBCs # 0.0 /100WBC 07/22/22 09:35 D-Dimer <= 0.27 ug/mIFEU (0-0.59) 07/21/22 14:52 Sodium 136 mmol/L (136-145) 07/23/22 04:20 Potassium 4.1 mmol/L (3.5-5.1) 07/23/22 04:20 Chloride 103 mmol/L (98-107) 07/23/22 04:20 Carbon Dioxide 25 mmol/L (22-29) 07/23/22 04:20 Anion Gap 12.1 (5-19) 07/23/22 04:20 BUN 20 mg/dL (8-23) 07/23/22 04:20 Creatinine 0.9 mg/dL (0.7-1.2) 07/23/22 04:20 GFR Calculation Not Reportable 07/23/22 04:20 Glucose 195 mg/dL (65-115) H 07/23/22 04:20 POC Glucose 191 mg/dL (70-110) H 07/23/22 05:56 Estimat Average Glucose 206 07/21/22 14:52 Hemoglobin A1c 8.8 % (4.0-6.0) H 07/21/22 14:52 Calculated Osmolality 290 mOsm/kg (285-295) 07/23/22 04:20 Calcium 8.9 mg/dL (8.5-10.5) 07/23/22 04:20 Magnesium 1.7 mg/dL (1.7-2.3) 07/22/22 09:35 Troponin T Baseline 45 ng/L (0-15) H 07/21/22 14:52 Troponin T 120 Minute 43.92 ng/L (0-15) H 07/21/22 17:02 Delta Troponin T -1.08 ABS# (0-10) L 07/21/22 17:02 Troponin T Hi Sens 6Hr 48.40 ng/L (0-15) H 07/21/22 20:12 Troponin T Hi Sens 6Hr Delta 3.40 ng/L (0-12) 07/21/22 20:12 C-Reactive Protein 4.8 mg/L (0.0-4.9) 07/22/22 09:35 TSH 1.64 uIU/mL (0.27-4.20) 07/21/22 17:02 Vitals Last Vital Signs Temp 97.9 F 07/23/22 07:32 Pulse 74 07/23/22 07:49 Resp 16 07/23/22 07:49 BP 152/82 07/23/22 07:32 Pulse Ox 98 07/23/22 07:49 O2 Del Method 07/23/22 07:49 Discharge Plan Discharge Patient Disposition: Home Condition: Stable Prescriptions: New clopidogrel 75 mg Tablet 75 mg PO DAILY Qty: 90 3RF atorvastatin 40 mg tablet 40 mg PO DAILY Qty: 60 3RF isosorbide mononitrate 30 mg Tablet Extended Release 24 Hr 30 mg PO DAILY Qty: 60 0RF Continued tamsulosin 0.4 mg capsule 0.8 mg PO DAILY pantoprazole 40 mg tablet,delayed release (DR/EC) 40 mg PO DAILY glipizide 10 mg tablet 10 mg PO BID Calcium 600 600 mg calcium (1,500 mg) Tablet 600 mg PO BID Vitamin D Tablet 1 tab PO BID nitroglycerin 0.4 mg Tablet, Sublingual 0.4 mg SUBLINGUAL Q5M PRN (Reason: Chest Pain) Rx Instructions: do not exceed 3 doses per episode finasteride 5 mg tablet 5 mg PO DAILY aspirin 81 mg Tablet,Delayed Release (Dr/Ec) 81 mg PO DAILY Qty: 90 3RF Changed lisinopril 2.5 mg tablet 10 mg PO DAILY Qty: 60 1RF metoprolol tartrate 100 mg tablet 50 mg PO BIDWMEAL Qty: 60 0RF Discontinued simvastatin 20 mg tablet 20 mg PO BEDTIME ibuprofen 200 mg Tablet 600 mg PO PRN metformin 500 mg tablet extended release 24 hr 500 mg PO DAILY Discharge Orders: Discharge Order (Routine); Ordered 07/23/22 Ordered By: Stephanie Edge Referrals: Cynthia Jj MD [Primary Care Provider] - 07/29/22 10:00 am Andreas Wakefield MD [Physician] - 1 month Discharge Diet: Cardiac Discharge Activity: Increase activity as tolerated Patient Instructions: Opioid Safety, Post Angiogram Home Care Instructions Patient's Health Concerns: It is very important that you take aspirin and Plavix on daily basis to prevent stenosis of your stent you had 2 stents placed in RCA For your blood pressure take lisinopril and metoprolol along imdur Hold Imdur if blood pressure is below 90mmhg Hold metoprolol if heart rate below 60 Better sugar control as needed please do not take metformin as your kidney function is not optimal discussed with your primary care for second antihyperglycemic agent along glipizide Discharge Attestations Time Spent in Discharge Care*: less than 30 min Quality Metrics Clinical Quality Measures [ No reported AMI, CVA or VTE this stay] Coding Level of Care Code Acute Chg FW DC note Diagnoses Atherosclerotic heart disease of [place] coronary artery with unstable angina pectoris I25.110 Benign essential HTN I10 Hyperlipidemia E78.5 Type 2 diabetes mellitus E11.9 Metastatic malignant neoplasm to prostate C79.82
[2022-07-23 11:16] VITALS: BP 121/69; PULSE 59; RESP 18; TEMP 36.7; O2SAT 97
[2022-07-23 11:21] LABS: Glucose Point of Care 273 mg/dL (70-110)
--- NOTE | 2022-07-23 12:08 | PC.NURSE ---
dc'd pts piv and tele. discharge instructions given, reviewed all medications and post cath care. no further questions from pt or spouse. left via wc to private vehicle.
== END 2022-07-23 11:45 | disposition home or self-care (01) ==
LOC: ER 16:09 → MEDSURG 17:54
PROVIDERS: Internal Medicine; Internal Medicine Cardiovascular Disease; Admitting Provider Internal Medicine; Emergency Provider Family Medicine; PCP Family Medicine; Visit Provider Internal Medicine
DX: I25.110 Atherosclerotic heart disease of native coronary artery with unstable angina pectoris (principal); I10 Essential (primary) hypertension; E78.5 Hyperlipidemia, unspecified; E11.9 Type 2 diabetes mellitus without complications; C79.82 Secondary malignant neoplasm of genital organs; N40.0 Benign prostatic hyperplasia without lower urinary tract symptoms; Z79.82 Long term (current) use of aspirin; Z79.84 Long term (current) use of oral hypoglycemic drugs; Z87.891 Personal history of nicotine dependence
CPT/HCPCS: 36415; 36416; 71045; 80048; 82962; 83036; 83735; 84443; 84484; 85025; 85347; 85378; 86140; 93005; 93306; 93458; 96360; 96372; 99152; 99153; 99285; C1725; C1769; C1874; C1887; C1894; C9600; G0378; J1644; J1650; J1815; J2250; J3010; J3490; J7030; Q0163; Q9967

== ENCOUNTER 2022-07-26 10:43 | Oncology outpatient (recurring) (ONCR) | payer MEDICARE, OTHER, SELFPAY | END 2022-08-22 23:59 | disposition home or self-care (01) | PROVIDERS: PCP Family Medicine; Visit Provider Internal Medicine Medical Oncology | DX: C61 Malignant neoplasm of prostate (principal); C79.51 Secondary malignant neoplasm of bone | CPT/HCPCS: 99205 ==

== ENCOUNTER → 2022-08-02 10:24 | Outpatient (BNVA) | payer MEDICARE, OTHER, SELFPAY | PROVIDERS: PCP Family Medicine; Visit Provider Nurse Practitioner Family | DX: I25.110 Atherosclerotic heart disease of native coronary artery with unstable angina pectoris (principal); Z95.5 Presence of coronary angioplasty implant and graft; Z87.891 Personal history of nicotine dependence; I10 Essential (primary) hypertension | CPT/HCPCS: 99213 ==

== ENCOUNTER 2022-09-13 12:30 | Oncology outpatient (recurring) (ONCR) | payer MEDICARE, OTHER, SELFPAY ==
[2022-09-12 14:50] LABS: Prostate Specific Antigen 0.123 ng/mL (0-4)
[2022-09-13] MEDS: denosumab 120 mg SDV SUBCUT (13:28)
--- NOTE | 2022-09-13 13:44 | PC.PHAR ---
xtandi education: i spent one hour with Mr. Sutton and his family going over his new medication xtandi. we talked about how xtandi works and the common side effects: htn, hyperglycemia, falls, dizziness, fatigue, hot flashes, KEE etc. he is to take 4 tablets by mouth daily. Mr. Sutton brought in his list of medications, i see no interactions with xtandi. He is to STOP bicalutamide. i encouraged him to be compliant with his diabetes and blood pressure medications. he states he received his last 6 month lupron shot on 07/07/22 and he is ok with going on the three month shot after that so i will place that order in draft. he was concerned about co-pay on the xtandi so i sat him down with Mark to go over patient assistance. I also noticed that his xgeva was not orderd so i asked mark to approve that and Ashlie gave him his shot today. Hopefully he can transition to prolia in the future. he will follow up with Dr. Pepper in one month. he was encouraged to call us with any intolerable side effects or with any further questions.
== END 2022-09-21 23:59 | disposition home or self-care (01) ==
PROVIDERS: PCP Family Medicine; Visit Provider Internal Medicine Medical Oncology
DX: C61 Malignant neoplasm of prostate (principal); C79.51 Secondary malignant neoplasm of bone
CPT/HCPCS: 36415; 84153; 96372; J0897

== ENCOUNTER → 2022-10-04 10:50 | Outpatient (BNVA) | payer MEDICARE, OTHER, SELFPAY | PROVIDERS: PCP Family Medicine; Visit Provider Internal Medicine Cardiovascular Disease | DX: I25.110 Atherosclerotic heart disease of native coronary artery with unstable angina pectoris (principal); C79.51 Secondary malignant neoplasm of bone; C61 Malignant neoplasm of prostate; E11.9 Type 2 diabetes mellitus without complications; Z79.84 Long term (current) use of oral hypoglycemic drugs; I10 Essential (primary) hypertension; E78.5 Hyperlipidemia, unspecified; Z87.891 Personal history of nicotine dependence | CPT/HCPCS: 99213 ==

== ENCOUNTER 2022-10-11 08:57 | Oncology outpatient (recurring) (ONCR) | payer MEDICARE, OTHER, SELFPAY ==
[2022-10-11] MEDS: denosumab 120 mg SDV SUBCUT (10:56)
== END 2022-10-22 23:59 | disposition home or self-care (01) ==
LOC: ONCMED 08:57
PROVIDERS: PCP Family Medicine; Visit Provider Internal Medicine Medical Oncology
DX: C61 Malignant neoplasm of prostate (principal); C79.51 Secondary malignant neoplasm of bone; I25.2 Old myocardial infarction; Z95.5 Presence of coronary angioplasty implant and graft; Z79.818 Long term (current) use of other agents affecting estrogen receptors and estrogen levels; Z79.899 Other long term (current) drug therapy; R53.83 Other fatigue; R61 Generalized hyperhidrosis; Z87.891 Personal history of nicotine dependence
CPT/HCPCS: 36415; 84153; 96372; 99214; J0897

== ENCOUNTER → 2023-01-04 11:29 | Outpatient (BNVA) | payer MEDICARE, OTHER, SELFPAY | PROVIDERS: PCP Family Medicine; Visit Provider Nurse Practitioner | DX: C61 Malignant neoplasm of prostate (principal) | CPT/HCPCS: 99214 ==

== ENCOUNTER 2023-01-18 12:09 | Oncology outpatient (recurring) (ONCR) | payer MEDICARE, OTHER, SELFPAY ==
[2023-01-04 11:57] LABS: Basophils # 0.1 10^3/uL (0.0-0.1); Basophils % 0.9 %; Eosinophils # 0.2 10^3/uL (0.0-0.8); Eosinophils % 2.3 %; Hematocrit 42.7 % (42.0-52.0); Hemoglobin 14.7 g/dL (11.7-16.6); Lymphocytes # 1.6 10^3/uL (0.8-4.8); Lymphocytes % 23.6 %; Mean Corpuscular HGB Conc 34.4 g/dL (30.0-36.0); Mean Corpuscular Hemoglobin 32.4 pg (28.0-34.0); Mean Corpuscular Volume 94.1 fl (80-94); Mean Platelet Volume 9.8 fL (7.4-10.4); Monocytes # 0.6 10^3/uL (0.2-0.9); Monocytes % 8.5 %; Neutrophils # 4.22 10^3/uL (1.8-7.7); Neutrophils % 64.1 %; Nucleated Red Blood Cells % 0 %; Platelet Count 324 10^3/cmm (130-400); Red Blood Count 4.54 10^6/uL (4.1-5.3); Red Cell Distribution Width 11.8 % (12.1-15.1); White Blood Count 6.6 10^3/uL (4.0-10.0)
[2023-01-04 12:26] LABS: Alanine Aminotransferase 13 U/L (0-41); Albumin Level 3.7 g/dL (3.5-5.2); Alkaline Phosphatase 110 U/L (40-130); Anion Gap 15.9 (5-19); Aspartate Amino Transferase 13 U/L (0-40); Blood Urea Nitrogen 23 mg/dL (8-23); Calcium 9.3 mg/dL (8.5-10.5); Carbon Dioxide 27 mmol/L (22-29); Chloride 95 mmol/L (98-107); Globulin 2.6 g/dL (1.3-4.6); Glucose 327 mg/dL (65-115); Osmolality Calculated 292 mOsm/kg (285-295); Potassium 4.9 mmol/L (3.5-5.1); Prostate Specific Antigen 0.041 ng/mL (0-4); Sodium 133 mmol/L (136-145); Total Bilirubin 0.4 mg/dL (0.15-1.2); Total Protein 6.3 g/dL (6.6-8.7)
[2023-01-04] MEDS: leuprolide 22.5 mg Kit IM (14:55)
[2023-01-04 15:34] LABS: Thyroid Stimulating Hormone 1.58 uIU/mL (0.27-4.20)
[2023-01-04 15:36] LABS: Estmated Average Glucose 237; Hemoglobin A1C 9.9 % (4.0-6.0)
[2023-01-18 12:48] LABS: Prostate Specific Antigen 0.035 ng/mL (0-4)
== END 2023-01-20 23:59 | disposition home or self-care (01) ==
PROVIDERS: Nurse Practitioner; PCP Family Medicine; Visit Provider Internal Medicine Medical Oncology
DX: C61 Malignant neoplasm of prostate (principal); C79.51 Secondary malignant neoplasm of bone; Z79.899 Other long term (current) drug therapy; Z79.818 Long term (current) use of other agents affecting estrogen receptors and estrogen levels
CPT/HCPCS: 36415; 80053; 83036; 84153; 84403; 84443; 85025; 96402; 99213; 99214; J9217

== ENCOUNTER → 2023-01-30 12:37 | Outpatient (BNVA) | payer MEDICARE, OTHER, SELFPAY | PROVIDERS: PCP Family Medicine; Visit Provider Internal Medicine Medical Oncology | DX: C61 Malignant neoplasm of prostate (principal); I25.2 Old myocardial infarction; Z95.5 Presence of coronary angioplasty implant and graft; R53.0 Neoplastic (malignant) related fatigue; Z79.52 Long term (current) use of systemic steroids; Z79.818 Long term (current) use of other agents affecting estrogen receptors and estrogen levels | CPT/HCPCS: 99214 ==

== ENCOUNTER 2023-02-06 12:00 | Oncology outpatient (recurring) (ONCR) | payer MEDICARE, OTHER, SELFPAY ==
[2023-02-06 12:25] VITALS: BP 131/66; PULSE 71; RESP 18; TEMP 36.1; O2SAT 98
[2023-02-06] MEDS: denosumab 120 mg SDV SUBCUT (12:29)
--- NOTE | 2023-02-06 12:31 | PC.NURSE ---
spouse requested that patient's tick bite to be assessed on left buttock, site is slightly red, bulls-eye noted. Spouse educated to have patient primary care provider for further assessment and treatment, verbalizes understanding. Patient denies any symptoms of infection, does have some fatigue.
== END 2023-02-19 23:59 | disposition home or self-care (01) ==
LOC: ONCMED 12:01
PROVIDERS: PCP Family Medicine; Visit Provider Internal Medicine Medical Oncology
DX: Z51.11 Encounter for antineoplastic chemotherapy (principal); C61 Malignant neoplasm of prostate
CPT/HCPCS: 96372; J0897

== ENCOUNTER 2023-03-29 09:55 | Oncology outpatient (recurring) (ONCR) | payer MEDICARE, OTHER, SELFPAY ==
[2023-03-29 10:39] LABS: Basophils # 0.1 10^3/uL (0.0-0.1); Basophils % 0.9 %; Eosinophils # 0.2 10^3/uL (0.0-0.8); Eosinophils % 4.2 %; Hematocrit 42.2 % (42.0-52.0); Hemoglobin 14.3 g/dL (11.7-16.6); Lymphocytes # 1.3 10^3/uL (0.8-4.8); Lymphocytes % 24.3 %; Mean Corpuscular HGB Conc 33.9 g/dL (30.0-36.0); Mean Corpuscular Hemoglobin 31.8 pg (28.0-34.0); Mean Corpuscular Volume 93.8 fl (80-94); Mean Platelet Volume 10.2 fL (7.4-10.4); Monocytes # 0.4 10^3/uL (0.2-0.9); Monocytes % 6.9 %; Neutrophils % 63.3 %; Nucleated Red Blood Cells % 0 %; Platelet Count 251 10^3/cmm (130-400); Red Cell Distribution Width 11.5 % (12.1-15.1); White Blood Count 5.5 10^3/uL (4.0-10.0)
[2023-03-29 11:25] LABS: Alanine Aminotransferase 32 U/L (0-41); Albumin Level 3.9 g/dL (3.5-5.2); Alkaline Phosphatase 127 U/L (40-130); Aspartate Amino Transferase 18 U/L (0-40); Blood Urea Nitrogen 22 mg/dL (8-23); Calcium 9.4 mg/dL (8.5-10.5); Carbon Dioxide 24 mmol/L (22-29); Chloride 96 mmol/L (98-107); Globulin 2.4 g/dL (1.3-4.6); Glucose 431 mg/dL (65-115); Osmolality Calculated 294 mOsm/kg (285-295); Prostate Specific Antigen 0.037 ng/mL (0-4); Sodium 131 mmol/L (136-145); Testosterone Total 2.5 ng/dL (193-740); Total Bilirubin 0.4 mg/dL (0.15-1.2); Total Protein 6.3 g/dL (6.6-8.7)
[2023-03-29] MEDS: leuprolide 22.5 mg Kit IM (12:08)
== END 2023-04-21 23:59 | disposition home or self-care (01) ==
PROVIDERS: Nurse Practitioner; PCP Family Medicine; Visit Provider Internal Medicine Medical Oncology
DX: C61 Malignant neoplasm of prostate (principal); C79.51 Secondary malignant neoplasm of bone; R53.82 Chronic fatigue, unspecified; Z95.5 Presence of coronary angioplasty implant and graft; Z79.52 Long term (current) use of systemic steroids; Z79.818 Long term (current) use of other agents affecting estrogen receptors and estrogen levels; Z79.899 Other long term (current) drug therapy
CPT/HCPCS: 80053; 84153; 84403; 85025; 96402; 99214; J9217

== ENCOUNTER → 2023-04-12 10:27 | Outpatient (BNVA) | payer MEDICARE, OTHER, SELFPAY | PROVIDERS: PCP Family Medicine; Visit Provider Specialist | DX: I25.110 Atherosclerotic heart disease of native coronary artery with unstable angina pectoris (principal); E78.5 Hyperlipidemia, unspecified; I10 Essential (primary) hypertension; Z87.891 Personal history of nicotine dependence | CPT/HCPCS: 99214 ==

== ENCOUNTER → 2023-06-01 13:20 | Outpatient (BNVA) | payer MEDICARE, OTHER, SELFPAY | PROVIDERS: PCP Family Medicine; Visit Provider Internal Medicine Cardiovascular Disease | DX: I25.110 Atherosclerotic heart disease of native coronary artery with unstable angina pectoris (principal); E78.5 Hyperlipidemia, unspecified; I10 Essential (primary) hypertension; E11.9 Type 2 diabetes mellitus without complications; Z79.4 Long term (current) use of insulin; Z87.891 Personal history of nicotine dependence | CPT/HCPCS: 99214 ==

== ENCOUNTER 2023-06-28 11:59 | Oncology outpatient (recurring) (ONCR) | payer MEDICARE, OTHER, SELFPAY ==
[2023-06-28 12:03] VITALS: BP 121/75; PULSE 67; RESP 18; TEMP 36.1; O2SAT 96
[2023-06-28 12:19] LABS: Basophils # 0.1 10^3/uL (0.0-0.1); Basophils % 0.9 %; Eosinophils # 0.3 10^3/uL (0.0-0.8); Eosinophils % 3.5 %; Hematocrit 41.9 % (37-53); Lymphocytes # 1.9 10^3/uL (0.8-4.8); Lymphocytes % 25.4 %; Mean Corpuscular HGB Conc 34.8 g/dL (30-55); Mean Corpuscular Hemoglobin 31.9 pg (27-33); Mean Corpuscular Volume 91.5 fl (82-101); Mean Platelet Volume 9.9 fL (7.4-10.4); Monocytes # 0.6 10^3/uL (0.2-0.9); Monocytes % 8.3 %; Neutrophils # 4.53 10^3/uL (1.8-7.7); Neutrophils % 61.4 %; Nucleated Red Blood Cells % 0 %; Platelet Count 265 10^3/cmm (157-399); Red Blood Count 4.58 10^6/uL (3.85-5.65); Red Cell Distribution Width 11.8 % (12.1-15.1); White Blood Count 7.39 10^3/uL (3.29-11.43)
[2023-06-28 12:51] LABS: Alanine Aminotransferase 23 U/L (0-41); Albumin Level 4.3 g/dL (3.5-5.2); Alkaline Phosphatase 108 U/L (40-130); Aspartate Amino Transferase 19 U/L (0-40); Blood Urea Nitrogen 21 mg/dL (8-23); Calcium 9.6 mg/dL (8.5-10.5); Carbon Dioxide 25 mmol/L (22-29); Chloride 100 mmol/L (98-107); Globulin 2.3 g/dL (1.3-4.6); Glucose 310 mg/dL (65-115); Osmolality Calculated 295 mOsm/kg (285-295); Prostate Specific Antigen 0.063 ng/mL (0-4); Sodium 135 mmol/L (136-145); Testosterone Total 4.8 ng/dL (193-740); Total Bilirubin 0.4 mg/dL (0.15-1.2); Total Protein 6.6 g/dL (6.6-8.7)
[2023-06-28 12:53] LABS: Anion Gap 14.8 (5-19); Potassium 4.8 mmol/L (3.5-5.1)
[2023-06-28] MEDS: leuprolide 22.5 mg Kit IM (14:16)
[2023-06-28 14:59] LABS: Estmated Average Glucose 255; Hemoglobin A1C 10.5 % (4.0-6.0)
== END 2023-07-22 23:59 | disposition home or self-care (01) ==
PROVIDERS: Nurse Practitioner Family; PCP Family Medicine; Visit Provider Internal Medicine Medical Oncology
DX: C61 Malignant neoplasm of prostate (principal); C79.51 Secondary malignant neoplasm of bone; Z79.899 Other long term (current) drug therapy; I10 Essential (primary) hypertension; E11.9 Type 2 diabetes mellitus without complications
CPT/HCPCS: 36415; 80053; 83036; 84153; 84403; 85025; 96402; 99214; J9217

== ENCOUNTER 2023-06-29 05:51 | Outpatient (CLI) | payer MEDICARE, OTHER, SELFPAY ==
[2023-06-28 08:10] VITALS: BMI 27.4
[2023-06-29] VITALS (14 sets, daily range): BP systolic 103–131; BP diastolic 59–70; PULSE 60–69; RESP 13–18; TEMP 36.7; O2SAT 95–98
[2023-06-29 06:27] LABS: Basophils # 0.1 10^3/uL (0.0-0.1); Eosinophils # 0.3 10^3/uL (0.0-0.8); Eosinophils % 3.5 %; Hematocrit 41.6 % (37-53); Lymphocytes # 1.9 10^3/uL (0.8-4.8); Lymphocytes % 20.9 %; Mean Corpuscular HGB Conc 34.4 g/dL (30-55); Mean Corpuscular Volume 93.1 fl (82-101); Mean Platelet Volume 9.8 fL (7.4-10.4); Monocytes # 0.8 10^3/uL (0.2-0.9); Monocytes % 8.8 %; Neutrophils # 5.95 10^3/uL (1.8-7.7); Nucleated Red Blood Cells % 0 %; Platelet Count 266 10^3/cmm (157-399); Red Blood Count 4.47 10^6/uL (3.85-5.65); Red Cell Distribution Width 11.8 % (12.1-15.1); White Blood Count 9.14 10^3/uL (3.29-11.43)
[2023-06-29 06:43] LABS: Blood Urea Nitrogen 23 mg/dL (8-23); Calcium 8.8 mg/dL (8.5-10.5); Carbon Dioxide 28 mmol/L (22-29); Chloride 98 mmol/L (98-107); Glucose 305 mg/dL (65-115); Osmolality Calculated 295 mOsm/kg (285-295); Sodium 135 mmol/L (136-145)
[2023-06-29] MEDS: diphenhydrAMINE 50 mg Capsule PO (06:49)
--- NOTE | 2023-06-29 06:50 | W.PM.OPSUD ---
Surgery/Procedure H&P Update DATE OF PROCEDURE: June 29, 2023 DATE H&P PERFORMED: 06/01/22 CHANGES TO PREVIOUS DOCUMENTATION: None PREOP DIAGNOSIS: chest pain PRIMARY INDICATION FOR PROCEDURE: Known CAD wirh recurrent chest pain PLANNED PROCEDURE: Operation Date: 06/29/23 07:00 Proposed Procedures p [facility] [id number],I20.0 ,RO7.9(Left) - Kermit Harris MD
--- NOTE | 2023-06-29 07:00 | XACV_ITS ---
Exam Room: 2 Ht: 188 cm Wt: 97 kg BSA: 2.27 m2 Gender: Male : 1945 Any Known Allergies: Other Exam Priority: Routine Procedure(s): Procedure Description: Diagnostic procedure Kimberly SINGLETARY; Diagnostic Cath Status: Elective Diagnostic Findings * 2 stents to the right coronary artery last fall. Came to the office recently with recurrent chest pain. Requested coronary angiography. * Procedure was done from the right radial artery. The left main coronary artery is normal and bifurcates into the LAD and circumflex. The circumflex contains mild diffuse luminal irregularities and trifurcates into 3 marginal branches. There is mild to moderate stenosis in the first and second marginal branches similar to what was seen last fall. The LAD is a large vessel and ends distally at the apex. There is a small diagonal branch which contains an 80% ostial stenosis. This was seen last fall as well. The right coronary artery is the dominant vessel. The 2 stents are widely patent without any in-stent restenosis. Conclusions 1. Patent previously placed stents. Diagonal stenosis unchanged from before. Recommendations * Medical treatment. Interventional RX Recommendation: medical therapy and/or counseling Diagnostic RX Recommendation: medical therapy and/or counseling Anticoagulation: Heparin Pressures Phase:Rest AO : 77 / 57 ( 67 ) @ 8:13:00 AM 81 / 59 ( 70 ) @ 8:14:00 AM Clinical Evaluation EBL: 5mL-10mL Procedural Details Procedure Consent Obtained. Admit Source: Out Patient. Pre-Procedure Time Out. Identified patient by full name and date of as verbalized by the patient/guarantor. Does the consent match the physician's order: Yes. Accurate & Complete Informed Consent: Yes. Inpatient/Outpatient History & Physical on Chart: Yes. If H&P is completed, is and addenduem needed: No; If yes, is the addendum complete: N/A. Visualize and Verify Site with Patient/Guarantor: N/A. Relevant Radiology Images available: Yes. The risks, benefits, and alternatives of sedation and/or procedure were discussed by physician. The patient agrees to continue. Procedure started. [facility] Clinical Fraility Score: 3: Managing Well. Rn Clinical Indications: Worsening Angina. Correct patient, site and procedure confirmed by cath team. PERRLA. Strong, equal hand beadworker bilaterally. Lungs clear x 5 lobes. IV Site on Arrival: 20 gauge in the left anticubital. IV Fluids: 0.9% NaCl at KVO. 0 mL infused prior to mini lab operator. Pre Procedural Pulses: bilateral dorsalis pedis was 3+. Pre Procedural Pulses: bilateral radial was 3+. Pre Procedural Pulses: bilateral posterior tibial was 3+. Oxygen started at 2liters/min via nasal canula. right groin was prepped with chloroprep then draped in the usual sterile fashion. right radial was prepped with chloroprep then draped in the usual sterile fashion. Physician notified. Baseline sample Acquired. HR: 57 BPM. Baseline sample Acquired. HR: 58 BPM. Physician arrived. Physician scrubbed in. Immediate Pre-Procedure Time Out. Correct Patient: Yes; Correct Procedure: Yes; Correct Site: Yes; Correct Patient Position: Yes; Correct Supplies: Yes; Dried Flammable Prep: Yes; Blood Products Available: N/A;. Lidocaine 1% infiltrated to the right radial. Arterial access obtained. A 5 tongan TIG catheter in over wire. Multiple views taken of left coronary artery. Catheter out. Physician review of cine films. Catheter redirected to the RCA. Multiple views taken of right coronary artery. Physician scrubbed out. A TR Band was successful obtaining hemostatsis at the Right Radial artery insertion site. Post Procedure: Pulses reassessed and unchanged. PERRLA. Strong, equal hand beadworker bilaterally. No VTE prophylaxis required. Medication's Wasted: Lidocaine 1% = 1 mL. Medication's Wasted: Nitro = 49.8 mg. Medication's Wasted: Other = versed 1 mg. Total IV fluids: 20 mL. Estimated blood loss: 5mL-10mL. Responsiveness - Normal response to verbal stimuli; alert and oriented, PERRLA. Airway - Unaffected, no intervention required; spontaneous ventilation. Circulation: W/N/L, pulses unchanged. Nausea/Vomiting: No. Procedure completed. Patient transferred by wheelchair to CPRU. Vital chart was stopped. Access Site Site: Right Radial artery Sheath Size: 5 Fr Hemostasis Method: TR Band Hemostasis Success: Successful Procedure Medications Start: 7:07 AM Stop: 7:07 AM Medication: Versed Amount: 1 mg Route: I.V. Start: 7:07 AM Stop: 7:07 AM Medication: Fentanyl Amount: 50 mcg Route: I.V. Start: 7:13 AM Stop: 7:13 AM Medication: Heparin Amount: 5000 units Route: I.V. I, the attending physician, have reviewed and verified all procedure medications. Yes, all medications given per verbal order History/Risk Factors Hypertension: Yes Dyslipidemia: Yes Peripheral Arterial Disease (PAD): No Myocardial Infarction (IA): Yes Obesity: Yes Renal Disease: No Tobacco Use: Former Prior Interventions PCI: Yes CABG: No Valve Surgery: No Date of PCI: 07/22/2022 Report Signatures Finalized by Dr. Kermit Harris MD on 06/29/2023 07:36 AM
[2023-06-29 07:12] LABS: Glucose Point of Care 277 mg/dL (70-110)
--- NOTE | 2023-06-29 07:28 | SUR.PHASEII ---
POST CATH NOTE Patient arrived from manager lab via wheelchair. Status post cardiac catheterization via the right radial approach. 5 yakut system used. Diagnositc only. Radial band in place an free of hematoma formation. Family at bedside. Dr Harris in to discuss findings. Verbal post cath instructions went over- they understood. Water given at this time. Call light in reach. Informed to call for needs.
--- NOTE | 2023-06-29 07:33 | SUR.PHASEII ---
POST CATH FLUIDS ARE 0.9% NS. INFUSING AT 100 ML/HR POST CATH ORDERED.
--- NOTE | 2023-06-29 08:33 | SUR.PHASEII ---
BLOOD GLUCOSE ASSESSMENT Blood sugar checked prior to breakfast tray given. Result was 283 mg/dl. Sliding scale insulin to be administered prior to tray being given. 10 units as ordered. See MAR for details.
[2023-06-29 08:34] LABS: Glucose Point of Care 283 mg/dL (70-110)
[2023-06-29] MEDS: insulin lispro 100 unit/1 mL SUBCUT (08:51)
--- NOTE | 2023-06-29 10:05 | P.DS_ITS ---
Discharge Providers Date of Admission: June 29, 2023 Date of Discharge: June 29, 2023 Attending Provider at Admission: Kimberly Attending Provider at Discharge: Kermit Harris MD Primary Care Provider: Cynthia Jj MD Diagnoses at Discharge Discharge Diagnosis (1) Chemotherapy-induced fatigue: Status: Acute (2) Hyperlipidemia: Status: Acute (3) Hypertension: Status: Acute (4) Type 2 diabetes mellitus: Status: Acute (5) Atherosclerotic heart disease of [place] coronary artery with unstable angina pectoris: Status: Acute (6) Secondary malignant neoplasm of bone: Status: Acute (7) Malignant neoplasm of prostate: Status: Acute Reason for Visit Reason for Visit: RO7.9 Brief History: Jaswinder is 77 and called to schedule an early urgent appointment with me about a month ago. He been having chest pain for 2 or 3 months. He had 2 stents placed in his right coronary artery last fall. He did perfectly fine after the procedure for several months but a couple months ago started having chest pain again. He was taking nitroglycerin but it was not helping. He thought maybe the pain was the same as he had prior to the stents being placed. He wanted to go straight to coronary angiography to find out. Hospital Course Hospital Course Angiography was performed from the right radial artery. The right coronary artery is widely patent and a dominant vessel. The stents are widely patent without any restenosis. The circumflex is unremarkable with some minor 20 to 30% blockages. The LAD is unremarkable. There is a diagonal branch, relatively small, which contains an 80% ostial stenosis. This was present at the previous angiogram during the time the stents were placed. It is unchanged. Left ventriculography was not performed this time. No complications were noted. The entry site in the right radial artery area is flat, dry without bleeding or hematoma at time of discharge. Physical Exam Narrative: GENERAL: In general he looks and feels well HEENT: Exam within normal limits. NECK: Supple without jugular vein distention. The carotid upstroke is normal without bruits. BACK: Exam normal. LUNGS: Clear. HEART: Regular rate and rhythm. ABDOMEN: Benign without organomegaly or tenderness. EXTREMITIES: No edema. The right radial artery entry site is flat, dry without bleeding or hematoma NEUROLOGIC: Exam normal. SKIN: Unremarkable. Discharge Data Studies Completed and Pending Completed Studies During Hospitalization Category Date Time Status [facility] ATTENDANT request for service Routine Exams 06/29/23 07:00 Completed Laboratory Results WBC 9.14 10^3/uL (3.29-11.43) 06/29/23 06:15 RBC 4.47 10^6/uL (3.85-5.65) 06/29/23 06:15 Hgb 14.30 g/dL (11.27-16.99) 06/29/23 06:15 Hct 41.6 % (37-53) 06/29/23 06:15 MCV 93.1 fl (82-101) 06/29/23 06:15 MCH 32.0 pg (27-33) 06/29/23 06:15 MCHC 34.4 g/dL (30-55) 06/29/23 06:15 RDW 11.8 % (12.1-15.1) L 06/29/23 06:15 Plt Count 266 10^3/cmm (157-399) 06/29/23 06:15 MPV 9.8 fL (7.4-10.4) 06/29/23 06:15 Neut % (Auto) 65.0 % 06/29/23 06:15 Lymph % (Auto) 20.9 % 06/29/23 06:15 Nash % (Auto) 8.8 % 06/29/23 06:15 Eos % (Auto) 3.5 % 06/29/23 06:15 Baso % (Auto) 1.0 % 06/29/23 06:15 Neut # (Auto) 5.95 10^3/uL (1.8-7.7) 06/29/23 06:15 Lymph # (Auto) 1.9 10^3/uL (0.8-4.8) 06/29/23 06:15 Nash # (Auto) 0.8 10^3/uL (0.2-0.9) 06/29/23 06:15 Eos # (Auto) 0.3 10^3/uL (0.0-0.8) 06/29/23 06:15 Baso # (Auto) 0.1 10^3/uL (0.0-0.1) 06/29/23 06:15 Nucleated RBC % (auto) 0 % 06/29/23 06:15 Nucleated RBCs # 0.0 /100WBC 06/29/23 06:15 Sodium 135 mmol/L (136-145) L 06/29/23 06:15 Potassium 4.0 mmol/L (3.5-5.1) 06/29/23 06:15 Chloride 98 mmol/L (98-107) 06/29/23 06:15 Carbon Dioxide 28 mmol/L (22-29) 06/29/23 06:15 Anion Gap 13.0 (5-19) 06/29/23 06:15 BUN 23 mg/dL (8-23) 06/29/23 06:15 Creatinine 0.8 mg/dL (0.7-1.2) 06/29/23 06:15 GFR Calculation Not Reportable 06/29/23 06:15 Glucose 305 mg/dL (65-115) H 06/29/23 06:15 POC Glucose 283 mg/dL (70-110) H 06/29/23 08:31 Calculated Osmolality 295 mOsm/kg (285-295) 06/29/23 06:15 Calcium 8.8 mg/dL (8.5-10.5) 06/29/23 06:15 Procedures Performed Coronary angiography, left heart catheterization Vitals Last Vital Signs Temp 98.0 F 06/29/23 06:57 Pulse 60 06/29/23 09:30 Resp 15 06/29/23 09:30 BP 107/66 06/29/23 09:30 Pulse Ox 98 06/29/23 09:30 O2 Del Method Room Air 06/29/23 10:00 Discharge Plan Discharge Patient Disposition: Home Prescriptions: Continued metformin 500 mg tablet extended release 24 hr 500 mg PO BID metoprolol tartrate 100 mg tablet 50 mg PO BIDWMEAL PRN (Reason: Hypertension) glipizide 10 mg tablet 10 mg PO DAILY insulin glargine [Lantus Solostar U-100 Insulin] 100 unit/mL (3 mL) insulin pen 14 unit SUBCUT DAILY isosorbide mononitrate 30 mg tablet extended release 24 hr 30 mg PO DAILY Qty: 90 3RF tamsulosin 0.4 mg capsule 0.8 mg PO DAILY pantoprazole 40 mg tablet,delayed release (DR/EC) 40 mg PO DAILY calcium carbonate [Calcium 600] 600 mg calcium (1,500 mg) Tablet 600 mg PO BID Vitamin D Tablet 1 tab PO BID nitroglycerin 0.4 mg Tablet, Sublingual 0.4 mg SUBLINGUAL Q5M PRN (Reason: Chest Pain) Rx Instructions: do not exceed 3 doses per episode finasteride 5 mg tablet 5 mg PO DAILY clopidogrel 75 mg Tablet 75 mg PO DAILY Qty: 90 3RF atorvastatin 40 mg tablet 40 mg PO DAILY Qty: 60 3RF aspirin 81 mg Tablet,Delayed Release (Dr/Ec) 81 mg PO DAILY Qty: 90 3RF lisinopril 2.5 mg tablet 10 mg PO DAILY Qty: 60 1RF Discharge Orders: Discharge Order (Routine); Ordered 06/29/23 Ordered By: Kermit Harris Referrals: Kate Mary FNP [Nurse Practitioner] - 7-10 days (Check right radial artery site and chemistry panel.) Diet: Diabetic Activity: Increase activity as tolerated and Limit activity as instructed Activity Restrictions/Additional Instructions: No lifting over 5 pounds with the right arm for 2 days Discharge Attestations Time Spent in Discharge Care*: less than 30 min Quality Metrics Clinical Quality Measures [ No reported AMI, CVA or VTE this stay] Coding Level of Care Code 12037 Total time (in minutes) for Discharge: 25 Diagnoses Chemotherapy-induced fatigue R53.83; T45.1X5A Hyperlipidemia E78.5 Hypertension I10 Type 2 diabetes mellitus E11.9 Atherosclerotic heart disease of [place] coronary artery with unstable angina pectoris I25.110 Secondary malignant neoplasm of bone C79.51 Malignant neoplasm of prostate C61
== END 2023-06-29 10:35 | disposition home or self-care (01) ==
PROVIDERS: PCP Family Medicine; Visit Provider Internal Medicine Cardiovascular Disease
DX: R53.83 Other fatigue (principal); T45.1X5A Adverse effect of antineoplastic and immunosuppressive drugs, initial encounter; E78.5 Hyperlipidemia, unspecified; I10 Essential (primary) hypertension; E11.9 Type 2 diabetes mellitus without complications; I25.110 Atherosclerotic heart disease of native coronary artery with unstable angina pectoris; C79.51 Secondary malignant neoplasm of bone; C61 Malignant neoplasm of prostate; I25.2 Old myocardial infarction; E66.9 Obesity, unspecified; Z68.27 Body mass index [BMI] 27.0-27.9, adult; Z87.891 Personal history of nicotine dependence
CPT/HCPCS: 36415; 36416; 80048; 82962; 85025; 93454; 93458; 96361; 96365; 96367; 99152; 99153; C1769; C1874; C1887; C1894; C9600; J1644; J1815; J2250; J3010; J3490; J7030; Q0163; Q9967

== ENCOUNTER → 2023-07-17 10:35 | Outpatient (BNVA) | payer MEDICARE, OTHER, SELFPAY | PROVIDERS: PCP Family Medicine; Visit Provider Nurse Practitioner Family | DX: I25.110 Atherosclerotic heart disease of native coronary artery with unstable angina pectoris (principal); Z87.891 Personal history of nicotine dependence; I10 Essential (primary) hypertension | CPT/HCPCS: 36415; 80048; 99214 ==

== ENCOUNTER 2023-09-20 14:30 | Oncology outpatient (recurring) (ONCR) | payer MEDICARE, OTHER, SELFPAY ==
[2023-09-13 11:49] VITALS: BP 122/68; PULSE 64; RESP 16; TEMP 36.1; O2SAT 97
[2023-09-13 12:01] LABS: Basophils # 0.1 10^3/uL (0.0-0.1); Basophils % 0.7 %; Eosinophils # 0.3 10^3/uL (0.0-0.8); Eosinophils % 4.2 %; Hematocrit 39.8 % (37-53); Lymphocytes # 1.5 10^3/uL (0.8-4.8); Mean Corpuscular HGB Conc 34.2 g/dL (30-55); Mean Corpuscular Volume 93.6 fl (82-101); Mean Platelet Volume 9.8 fL (7.4-10.4); Monocytes # 0.5 10^3/uL (0.2-0.9); Monocytes % 6.7 %; Neutrophils # 4.56 10^3/uL (1.8-7.7); Nucleated Red Blood Cells % 0 %; Platelet Count 225 10^3/cmm (157-399); Red Blood Count 4.25 10^6/uL (3.85-5.65); White Blood Count 6.91 10^3/uL (3.29-11.43)
[2023-09-13 12:38] LABS: Alanine Aminotransferase 20 U/L (0-41); Albumin Level 3.9 g/dL (3.5-5.2); Alkaline Phosphatase 91 U/L (40-130); Anion Gap 13.2 (5-19); Aspartate Amino Transferase 17 U/L (0-40); Blood Urea Nitrogen 16 mg/dL (8-23); Calcium 9.1 mg/dL (8.5-10.5); Carbon Dioxide 27 mmol/L (22-29); Chloride 102 mmol/L (98-107); Globulin 2.1 g/dL (1.3-4.6); Glucose 254 mg/dL (65-115); Osmolality Calculated 296 mOsm/kg (285-295); Potassium 4.2 mmol/L (3.5-5.1); Prostate Specific Antigen 0.065 ng/mL (0-4); Sodium 138 mmol/L (136-145); Testosterone Total 2.5 ng/dL (193-740); Total Bilirubin 0.5 mg/dL (0.15-1.2)
[2023-09-20 14:58] VITALS: BP 124/68; PULSE 69; TEMP 36.4; O2SAT 98
[2023-09-20] MEDS: leuprolide 22.5 mg Kit IM (14:59)
[2023-09-20] MEDS: denosumab 60 mg SDV SUBCUT (15:00)
== END 2023-09-21 23:59 | disposition home or self-care (01) ==
PROVIDERS: PCP Family Medicine; Visit Provider Internal Medicine Medical Oncology
DX: C61 Malignant neoplasm of prostate (principal); Z51.11 Encounter for antineoplastic chemotherapy
CPT/HCPCS: 36415; 80053; 84153; 84403; 85025; 96372; 96402; 99214; J0897; J9217

== ENCOUNTER → 2023-10-02 13:09 | Outpatient (BNVA) | payer MEDICARE, OTHER, SELFPAY | PROVIDERS: PCP Family Medicine; Visit Provider Internal Medicine Cardiovascular Disease | DX: I25.110 Atherosclerotic heart disease of native coronary artery with unstable angina pectoris (principal); I10 Essential (primary) hypertension; Z87.891 Personal history of nicotine dependence; Z95.5 Presence of coronary angioplasty implant and graft | CPT/HCPCS: 99213 ==

== ENCOUNTER 2023-12-18 12:14 | Oncology outpatient (recurring) (ONCR) | payer MEDICARE, OTHER, SELFPAY ==
[2023-12-18 12:30] LABS: Basophils # 0.1 10^3/uL (0.0-0.1); Eosinophils # 0.2 10^3/uL (0.0-0.8); Eosinophils % 3.1 %; Hematocrit 41.5 % (37-53); Lymphocytes # 1.6 10^3/uL (0.8-4.8); Lymphocytes % 26.8 %; Mean Corpuscular HGB Conc 34.2 g/dL (30-55); Mean Corpuscular Hemoglobin 31.3 pg (27-33); Mean Corpuscular Volume 91.4 fl (82-101); Mean Platelet Volume 9.7 fL (7.4-10.4); Monocytes # 0.4 10^3/uL (0.2-0.9); Monocytes % 7.2 %; Neutrophils # 3.78 10^3/uL (1.8-7.7); Neutrophils % 61.6 %; Nucleated Red Blood Cells % 0 %; Platelet Count 261 10^3/cmm (157-399); Red Blood Count 4.54 10^6/uL (3.85-5.65); Red Cell Distribution Width 12.4 % (12.1-15.1); White Blood Count 6.13 10^3/uL (3.29-11.43)
[2023-12-18 12:58] LABS: Alanine Aminotransferase 12 U/L (0-41); Albumin Level 3.9 g/dL (3.5-5.2); Alkaline Phosphatase 103 U/L (40-130); Anion Gap 14.3 (5-19); Aspartate Amino Transferase 18 U/L (0-40); Blood Urea Nitrogen 26 mg/dL (8-23); Calcium 9.4 mg/dL (8.5-10.5); Carbon Dioxide 24 mmol/L (22-29); Chloride 102 mmol/L (98-107); Globulin 2.6 g/dL (1.3-4.6); Glucose 254 mg/dL (65-115); Osmolality Calculated 295 mOsm/kg (285-295); Potassium 4.3 mmol/L (3.5-5.1); Prostate Specific Antigen 0.121 ng/mL (0-4); Sodium 136 mmol/L (136-145); Testosterone Total 2.5 ng/dL (193-740); Total Bilirubin 0.4 mg/dL (0.15-1.2); Total Protein 6.5 g/dL (6.6-8.7)
[2023-12-18] MEDS: leuprolide 22.5 mg Kit IM (15:23)
== END 2023-12-21 23:59 | disposition home or self-care (01) ==
PROVIDERS: PCP Family Medicine; Visit Provider Internal Medicine Medical Oncology
DX: Z51.12 Encounter for antineoplastic immunotherapy (principal); C61 Malignant neoplasm of prostate; C79.51 Secondary malignant neoplasm of bone; Z87.891 Personal history of nicotine dependence; Z79.899 Other long term (current) drug therapy; Z95.5 Presence of coronary angioplasty implant and graft; R97.20 Elevated prostate specific antigen [PSA]; Z79.818 Long term (current) use of other agents affecting estrogen receptors and estrogen levels
CPT/HCPCS: 36415; 80053; 84153; 84403; 85025; 96402; 99214; J9217

== ENCOUNTER 2024-03-19 11:21 | Oncology outpatient (recurring) (ONCR) | payer MEDICARE, OTHER, SELFPAY ==
[2024-03-19 11:54] LABS: Basophils # 0.1 10^3/uL (0.0-0.1); Basophils % 0.8 %; Eosinophils # 0.2 10^3/uL (0.0-0.8); Eosinophils % 2.6 %; Hematocrit 39.6 % (37-53); Lymphocytes # 1.6 10^3/uL (0.8-4.8); Lymphocytes % 21.1 %; Mean Corpuscular HGB Conc 34.8 g/dL (30-55); Mean Corpuscular Hemoglobin 31.7 pg (27-33); Mean Platelet Volume 9.9 fL (7.4-10.4); Monocytes # 0.5 10^3/uL (0.2-0.9); Monocytes % 6.6 %; Neutrophils # 5.17 10^3/uL (1.8-7.7); Neutrophils % 68.4 %; Nucleated Red Blood Cells % 0 %; Platelet Count 247 10^3/cmm (157-399); Red Blood Count 4.35 10^6/uL (3.85-5.65); White Blood Count 7.57 10^3/uL (3.29-11.43)
[2024-03-19 12:33] LABS: Alanine Aminotransferase 14 U/L (0-41); Albumin Level 3.7 g/dL (3.5-5.2); Alkaline Phosphatase 115 U/L (40-130); Anion Gap 13.5 (5-19); Aspartate Amino Transferase 15 U/L (0-40); Blood Urea Nitrogen 21 mg/dL (8-23); Carbon Dioxide 26 mmol/L (22-29); Chloride 102 mmol/L (98-107); Globulin 2.6 g/dL (1.3-4.6); Glucose 224 mg/dL (65-115); Osmolality Calculated 294 mOsm/kg (285-295); Potassium 4.5 mmol/L (3.5-5.1); Prostate Specific Antigen 0.156 ng/mL (0-4); Sodium 137 mmol/L (136-145); Testosterone Total 2.5 ng/dL (193-740); Total Bilirubin 0.4 mg/dL (0.15-1.2); Total Protein 6.3 g/dL (6.6-8.7)
[2024-03-19] MEDS: denosumab 60 mg SDV SUBCUT (14:26)
[2024-03-19] MEDS: leuprolide 22.5 mg Kit IM (14:27)
== END 2024-03-22 23:59 | disposition home or self-care (01) ==
PROVIDERS: Nurse Practitioner Family; PCP Family Medicine; Visit Provider Internal Medicine Medical Oncology
DX: C61 Malignant neoplasm of prostate (principal); C79.51 Secondary malignant neoplasm of bone; E11.9 Type 2 diabetes mellitus without complications; Z79.899 Other long term (current) drug therapy; Z51.12 Encounter for antineoplastic immunotherapy
CPT/HCPCS: 36415; 80053; 84153; 84403; 85025; 96372; 96402; 99214; J0897; J9217

== ENCOUNTER → 2024-04-15 11:02 | Outpatient (BNVA) | payer MEDICARE, OTHER, SELFPAY | PROVIDERS: PCP Family Medicine; Visit Provider Internal Medicine Cardiovascular Disease | DX: I10 Essential (primary) hypertension (principal); E78.5 Hyperlipidemia, unspecified; I25.110 Atherosclerotic heart disease of native coronary artery with unstable angina pectoris; E11.9 Type 2 diabetes mellitus without complications; C61 Malignant neoplasm of prostate; C79.51 Secondary malignant neoplasm of bone; Z87.891 Personal history of nicotine dependence | CPT/HCPCS: 99213 ==

== ENCOUNTER 2024-06-11 11:59 | Oncology outpatient (recurring) (ONCR) | payer MEDICARE, OTHER, SELFPAY ==
[2024-06-11 12:42] LABS: Basophils # 0.1 10^3/uL (0.0-0.1); Basophils % 0.7 %; Eosinophils # 0.3 10^3/uL (0.0-0.8); Eosinophils % 3.8 %; Hematocrit 38.6 % (37-53); Lymphocytes # 1.8 10^3/uL (0.8-4.8); Lymphocytes % 26.4 %; Mean Corpuscular HGB Conc 34.7 g/dL (30-55); Mean Corpuscular Hemoglobin 31.8 pg (27-33); Mean Corpuscular Volume 91.5 fl (82-101); Monocytes # 0.4 10^3/uL (0.2-0.9); Monocytes % 6.5 %; Neutrophils # 4.25 10^3/uL (1.8-7.7); Neutrophils % 62.3 %; Nucleated Red Blood Cells % 0 %; Platelet Count 245 10^3/cmm (157-399); Red Blood Count 4.22 10^6/uL (3.85-5.65); Red Cell Distribution Width 12.2 % (12.1-15.1); White Blood Count 6.82 10^3/uL (3.29-11.43)
[2024-06-11 13:05] LABS: Alanine Aminotransferase 11 U/L (0-41); Albumin Level 3.8 g/dL (3.5-5.2); Alkaline Phosphatase 98 U/L (40-130); Anion Gap 15.4 (5-19); Aspartate Amino Transferase 17 U/L (0-40); Blood Urea Nitrogen 21 mg/dL (8-23); Carbon Dioxide 24 mmol/L (22-29); Chloride 104 mmol/L (98-107); Globulin 2.2 g/dL (1.3-4.6); Glucose 325 mg/dL (65-115); Osmolality Calculated 304 mOsm/kg (285-295); Potassium 4.4 mmol/L (3.5-5.1); Prostate Specific Antigen 0.213 ng/mL (0-4); Sodium 139 mmol/L (136-145); Testosterone Total 2.5 ng/dL (193-740); Total Bilirubin 0.5 mg/dL (0.15-1.2)
[2024-06-11] MEDS: leuprolide 22.5 mg Kit IM (14:30)
== END 2024-06-22 23:59 | disposition home or self-care (01) ==
PROVIDERS: PCP Family Medicine; Visit Provider Internal Medicine Medical Oncology
DX: C61 Malignant neoplasm of prostate (principal); C79.51 Secondary malignant neoplasm of bone; Z79.899 Other long term (current) drug therapy; Z51.11 Encounter for antineoplastic chemotherapy; Z87.891 Personal history of nicotine dependence; I25.2 Old myocardial infarction; Z95.5 Presence of coronary angioplasty implant and graft; R35.1 Nocturia; R06.2 Wheezing; R05.9 Cough, unspecified
CPT/HCPCS: 36415; 80053; 84153; 84403; 85025; 96402; 99214; J9217

== ENCOUNTER 2024-09-03 12:04 | Oncology outpatient (recurring) (ONCR) | payer MEDICARE, OTHER, SELFPAY ==
[2024-09-03 12:48] LABS: Basophils # 0.1 10^3/uL (0.0-0.1); Basophils % 0.8 %; Eosinophils # 0.2 10^3/uL (0.0-0.8); Eosinophils % 2.9 %; Hematocrit 39.2 % (37-53); Lymphocytes # 1.9 10^3/uL (0.8-4.8); Lymphocytes % 24.6 %; Mean Corpuscular HGB Conc 33.9 g/dL (30-55); Mean Corpuscular Hemoglobin 31.2 pg (27-33); Monocytes # 0.5 10^3/uL (0.2-0.9); Monocytes % 6.5 %; Neutrophils # 4.99 10^3/uL (1.8-7.7); Neutrophils % 64.8 %; Nucleated Red Blood Cells % 0 %; Platelet Count 264 10^3/cmm (157-399); Red Blood Count 4.26 10^6/uL (3.85-5.65); Red Cell Distribution Width 11.9 % (12.1-15.1); White Blood Count 7.69 10^3/uL (3.29-11.43)
[2024-09-03 13:11] LABS: Alanine Aminotransferase 30 U/L (0-41); Alkaline Phosphatase 148 U/L (40-130); Anion Gap 12.3 (5-19); Aspartate Amino Transferase 15 U/L (0-40); Blood Urea Nitrogen 18 mg/dL (8-23); Calcium 8.6 mg/dL (8.5-10.5); Carbon Dioxide 28 mmol/L (22-29); Chloride 103 mmol/L (98-107); Creatinine Clr Calc Pharmacy 94.1675; Globulin 1.6 g/dL (1.3-4.6); Glucose 265 mg/dL (65-115); Osmolality Calculated 299 mOsm/kg (285-295); Potassium 4.3 mmol/L (3.5-5.1); Prostate Specific Antigen 0.266 ng/mL (0-4); Sodium 139 mmol/L (136-145); Total Bilirubin 0.3 mg/dL (0.15-1.2); Total Protein 5.6 g/dL (6.6-8.7)
[2024-09-03 14:26] LABS: Testosterone Total 75.3 ng/dL (193-740)
[2024-09-03] MEDS: leuprolide 22.5 mg Kit IM (14:33)
== END 2024-09-21 23:59 | disposition home or self-care (01) ==
PROVIDERS: Nurse Practitioner Family; PCP Family Medicine; Visit Provider Internal Medicine Medical Oncology
DX: Z51.11 Encounter for antineoplastic chemotherapy (principal); C61 Malignant neoplasm of prostate; C79.51 Secondary malignant neoplasm of bone; Z79.899 Other long term (current) drug therapy; Z87.891 Personal history of nicotine dependence; I25.2 Old myocardial infarction; Z95.5 Presence of coronary angioplasty implant and graft; R35.1 Nocturia; R06.2 Wheezing; R05.9 Cough, unspecified
CPT/HCPCS: 36415; 80053; 84153; 84403; 85025; 96402; 99214; J9217

== ENCOUNTER 2024-09-25 14:00 | Oncology outpatient (recurring) (ONCR) | payer MEDICARE, OTHER, SELFPAY | END 2024-10-22 23:59 | disposition home or self-care (01) | PROVIDERS: PCP Family Medicine; Visit Provider Internal Medicine Medical Oncology | DX: Z51.11 Encounter for antineoplastic chemotherapy (principal); C61 Malignant neoplasm of prostate; C79.51 Secondary malignant neoplasm of bone; Z79.899 Other long term (current) drug therapy; Z87.891 Personal history of nicotine dependence; I25.2 Old myocardial infarction; Z95.5 Presence of coronary angioplasty implant and graft; R35.1 Nocturia; R06.2 Wheezing; R05.9 Cough, unspecified | CPT/HCPCS: 93005; 99214 ==

== ENCOUNTER 2024-10-01 09:19 | Outpatient (CLI) | payer MEDICARE, OTHER, SELFPAY ==
--- NOTE | 2024-10-01 09:30 | NM_ITS ---
WS: [id number] Exam: NM bone scan whole body* [id number] Date/Time of Exam: 10/01/2024 9:30 AM Reason For Exam: increased low back pain Technique: 25.3 mCi of Tc 99m HDP administered intravenously for this exam. Comparison made to prior exam dated 06/10/2022 from [facility]. Stable appearing areas of focal increased tracer uptake identified in the shoulders, the feet, and l umbar spine most likely representing degenerative change. Focal area of increased activity in the low er RIGHT femur is stable. There are no new areas of abnormally increased or decreased tracer uptake t hroughout the axial or appendicular skeleton. The skull demonstrates normal tracer distribution. Area s of slightly increased activity in the cervical spine also most likely represent arthritic change, t hese are stable also. NM/NM bone scan whole body* [id number] IMPRESSION: 1. Stable appearing areas of tracer activity in the axial and appendicular skel eton most likely related to degenerative change. 2. There are no new suspicious areas of abnormally increased or decreased trace r uptake since the last exam.
== END 2024-10-01 09:20 | disposition home or self-care (01) ==
LOC: RAD 09:21
PROVIDERS: PCP Family Medicine; Visit Provider Nurse Practitioner Family
DX: C61 Malignant neoplasm of prostate (principal); C79.51 Secondary malignant neoplasm of bone; R93.7 Abnormal findings on diagnostic imaging of other parts of musculoskeletal system
CPT/HCPCS: 78306; A9561

== ENCOUNTER 2024-10-04 09:48 | Outpatient (CLI) | payer MEDICARE, OTHER, SELFPAY ==
--- NOTE | 2024-10-04 | ECG_ITS ---
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 Interpretive Statements EXERCISE MIBI EXERCISE DATA: The patient was exercised by Arnaud protocol. Baseline heart rate was 93 beats per minute. Baseline blood pressure was 141/85 millimeters of mercury. Maximal predicted heart rate was 141 beats per minute. Maximum heart rate achieved was 153 which was 108 % of the maximum predicted heart rate. Maximum blood pressure was 199/84 millimeters of mercury. Total exercise time was 3 minutes. Maximum METs achieved was 4.6. The reason for ending the test was maximal effort achieved. The patient complained of shortness of breath during the stress test, which then resolved at the end of the test. ELECTROCARDIOGRAM: BASELINE: Showed sinus rhythm, normal axis, no significant ST-T changes at the baseline noted. [] EXERCISE: At the peak exercise level, [] No significant ST-T changes suggestive of ischemia noted. [] RECOVERY: During the recovery period, heart rate dropped appropriately. No significant ST-T changes in the recovery suggestive of ischemia noted. [] CONCLUSION: 1. Exercise capacity is poor. 2. Heart rate response was appropriate 3. Blood pressure response was appropriate 4. Symptoms not suggestive of ischemia. 5. Electrocardiogram portion of the stress test was not suggestive of ischemia. 6. Nuclear scan will be documented separately. Electronically Signed On 10-07-2024 09:38:10 [employer] by Juan Adams M.D. [email or web address]
[2024-10-04 10:09] VITALS: BMI 28.2
--- NOTE | 2024-10-04 10:23 | NMCV_ITS ---
NM melisa perf SPECT r/s* [id number] Jaswinder Sutton Age: 79 Gender: M : 1945 Exam Date: 10/04/2024 10:43 Ordering Phys: Stephanie Venegas MD ([email or web address]) Technologist: TAMMI Comer Exam Location: [facility] Indications: cp STRESS TEST Please see separate stress test report in [facility] for full findings IMAGE PROTOCOL Radiopharmaceutical Dose (mCi) Administration Site Administered by Rest: Tc-99m IV Sestamibi Stress:Tc-99m IV Sestamibi Rest: Discovery 630 Stress: Discovery 630 SPECT RESULTS Technical Quality: Raw Data Analysis: Image Corrections: Summed Stress Score: 0 Summed Rest Score: 0 Summed Difference Score: 0 PERFUSION FINDINGS There is small sized area of fixed perfusion defect seen in the inferoseptal wall. 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 No evidence of ischemia. FUNCTIONAL RESULTS (calculated via Gated SPECT) Stress Image LV EF (%): 74 FUNCTIONAL FINDINGS: There is normal left ventricular systolic function. IMPRESSIONS 1. 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 No evidence of ischemia 2. LV systolic function is normal Juan Adams MD (Electronically Signed) Final Date: 07 October 2024 09:31 S
[2024-10-04 11:44] VITALS: BP 167/86; PULSE 92
== END 2024-10-04 09:49 | disposition home or self-care (01) ==
LOC: CDL 09:49
PROVIDERS: PCP Family Medicine; Visit Provider Internal Medicine Cardiovascular Disease
DX: R07.9 Chest pain, unspecified (principal); R06.02 Shortness of breath; R94.39 Abnormal result of other cardiovascular function study
CPT/HCPCS: 36415; 78452; 93017; 96375; A9500

== ENCOUNTER 2024-12-25 08:49 | Oncology outpatient (recurring) (ONCR) | payer MEDICARE, OTHER, SELFPAY ==
[2024-12-25 09:43] LABS: Basophils % 0.6 %; Eosinophils # 0.2 10^3/uL (0.0-0.8); Eosinophils % 3.1 %; Hematocrit 39.6 % (37-53); Lymphocytes # 1.3 10^3/uL (0.8-4.8); Lymphocytes % 18.1 %; Mean Corpuscular HGB Conc 34.3 g/dL (30-55); Mean Corpuscular Hemoglobin 31.9 pg (27-33); Mean Platelet Volume 9.7 fL (7.4-10.4); Monocytes # 0.4 10^3/uL (0.2-0.9); Monocytes % 5.4 %; Neutrophils # 5.21 10^3/uL (1.8-7.7); Neutrophils % 72.4 %; Nucleated Red Blood Cells % 0 %; Platelet Count 242 10^3/cmm (157-399); Red Blood Count 4.26 10^6/uL (3.85-5.65); White Blood Count 7.19 10^3/uL (3.29-11.43)
[2024-12-25 10:13] LABS: Alanine Aminotransferase 12 U/L (0-41); Alkaline Phosphatase 133 U/L (40-130); Aspartate Amino Transferase 14 U/L (0-40); Blood Urea Nitrogen 21 mg/dL (8-23); Calcium 9.6 mg/dL (8.5-10.5); Carbon Dioxide 26 mmol/L (22-29); Chloride 104 mmol/L (98-107); Globulin 2.6 g/dL (1.3-4.6); Glucose 322 mg/dL (65-115); Osmolality Calculated 307 mOsm/kg (285-295); Prostate Specific Antigen 0.389 ng/mL (0-4); Sodium 141 mmol/L (136-145); Total Bilirubin 0.5 mg/dL (0.15-1.2); Total Protein 6.6 g/dL (6.6-8.7)
[2024-12-25 10:15] LABS: Testosterone Total < 2.5 ng/dL (193-740)
[2024-12-25] MEDS: denosumab 60 mg SDV SUBCUT (11:11)
[2024-12-25] MEDS: leuprolide 22.5 mg Kit IM (11:11)
== END 2025-01-20 23:59 | disposition home or self-care (01) ==
PROVIDERS: Internal Medicine; PCP Family Medicine; Visit Provider Internal Medicine Medical Oncology
DX: Z51.11 Encounter for antineoplastic chemotherapy (principal); C61 Malignant neoplasm of prostate; C79.51 Secondary malignant neoplasm of bone; I25.2 Old myocardial infarction; Z79.818 Long term (current) use of other agents affecting estrogen receptors and estrogen levels; Z87.891 Personal history of nicotine dependence; Z79.899 Other long term (current) drug therapy
CPT/HCPCS: 36415; 80053; 84153; 84403; 85025; 96372; 96402; 99213; J0897; J9217

== ENCOUNTER → 2025-01-31 09:43 | Outpatient (BNVA) | payer MEDICARE, OTHER, SELFPAY | PROVIDERS: PCP Family Medicine; Visit Provider Family Medicine | DX: E11.9 Type 2 diabetes mellitus without complications (principal) | CPT/HCPCS: 80048; 83036 ==

== ENCOUNTER 2025-03-19 12:15 | Oncology outpatient (recurring) (ONCR) | payer MEDICARE, OTHER, SELFPAY ==
[2025-03-19 12:31] LABS: Basophils # 0.1 10^3/uL (0.0-0.1); Basophils % 0.9 %; Eosinophils # 0.3 10^3/uL (0.0-0.8); Eosinophils % 3.7 %; Hematocrit 40.1 % (37-53); Lymphocytes # 1.5 10^3/uL (0.8-4.8); Lymphocytes % 22.6 %; Mean Corpuscular HGB Conc 33.2 g/dL (30-55); Mean Corpuscular Hemoglobin 31.1 pg (27-33); Mean Corpuscular Volume 93.7 fl (82-101); Monocytes # 0.5 10^3/uL (0.2-0.9); Monocytes % 6.9 %; Neutrophils # 4.49 10^3/uL (1.8-7.7); Neutrophils % 65.8 %; Nucleated Red Blood Cells % 0 %; Platelet Count 223 10^3/cmm (157-399); Red Blood Count 4.28 10^6/uL (3.85-5.65); White Blood Count 6.82 10^3/uL (3.29-11.43)
[2025-03-19 12:57] LABS: Alanine Aminotransferase 169 U/L (0-41); Albumin Level 3.7 g/dL (3.5-5.2); Alkaline Phosphatase 260 U/L (40-130); Anion Gap 15.2 (5-19); Aspartate Amino Transferase 93 U/L (0-40); Blood Urea Nitrogen 20 mg/dL (8-23); Calcium 9.2 mg/dL (8.5-10.5); Carbon Dioxide 25 mmol/L (22-29); Chloride 101 mmol/L (98-107); Globulin 2.3 g/dL (1.3-4.6); Glucose 277 mg/dL (65-115); Lactate Dehydrogenase 214 U/L (135-225); Osmolality Calculated 297 mOsm/kg (285-295); Potassium 4.2 mmol/L (3.5-5.1); Prostate Specific Antigen 0.458 ng/mL (0-4); Sodium 137 mmol/L (136-145); Total Bilirubin 0.5 mg/dL (0.15-1.2)
[2025-03-19 12:59] LABS: Testosterone Total < 2.5 ng/dL (193-740)
[2025-03-19] MEDS: leuprolide 22.5 mg Kit IM (15:33)
[2025-03-21 03:28] LABS: Lyme AB Screen <0.90 index
[2025-03-24 18:46] LABS: RMSF IGG NOT DETECTED; RMSF IGM NOT DETECTED
[2025-03-26 19:05] LABS: E. Chaffeensis AB IGG <1:64; E. Chaffeensis AB IGM <1:20
== END 2025-03-22 23:59 | disposition home or self-care (01) ==
PROVIDERS: Nurse Practitioner Family; PCP Family Medicine; Visit Provider Internal Medicine
DX: Z51.11 Encounter for antineoplastic chemotherapy (principal); C61 Malignant neoplasm of prostate; C79.51 Secondary malignant neoplasm of bone; Z79.818 Long term (current) use of other agents affecting estrogen receptors and estrogen levels; Z79.899 Other long term (current) drug therapy; R03.0 Elevated blood-pressure reading, without diagnosis of hypertension; R74.8 Abnormal levels of other serum enzymes; S30.860A Insect bite (nonvenomous) of lower back and pelvis, initial encounter; W57.XXXA Bitten or stung by nonvenomous insect and other nonvenomous arthropods, initial encounter; Z87.891 Personal history of nicotine dependence
CPT/HCPCS: 36415; 80053; 83615; 84153; 84403; 85025; 86618; 86666; 86757; 96402; 99214; J9217

== ENCOUNTER 2025-04-16 13:45 | Oncology outpatient (recurring) (ONCR) | payer MEDICARE, OTHER, SELFPAY ==
[2025-04-16 14:33] LABS: Basophils # 0.1 10^3/uL (0.0-0.1); Basophils % 0.8 %; Eosinophils # 0.3 10^3/uL (0.0-0.8); Eosinophils % 3.6 %; Hematocrit 39.4 % (37-53); Lymphocytes # 1.8 10^3/uL (0.8-4.8); Lymphocytes % 23.5 %; Mean Corpuscular Hemoglobin 31.7 pg (27-33); Mean Corpuscular Volume 93.1 fl (82-101); Mean Platelet Volume 10.1 fL (7.4-10.4); Monocytes # 0.6 10^3/uL (0.2-0.9); Monocytes % 7.6 %; Neutrophils # 4.78 10^3/uL (1.8-7.7); Neutrophils % 63.8 %; Nucleated Red Blood Cells % 0 %; Platelet Count 261 10^3/cmm (157-399); Red Blood Count 4.23 10^6/uL (3.85-5.65); Red Cell Distribution Width 12.5 % (12.1-15.1); White Blood Count 7.49 10^3/uL (3.29-11.43)
[2025-04-16 14:51] LABS: Alanine Aminotransferase 253 U/L (0-41); Alkaline Phosphatase 296 U/L (40-130); Anion Gap 17.6 (5-19); Aspartate Amino Transferase 150 U/L (0-40); Blood Urea Nitrogen 22 mg/dL (8-23); Calcium 9.7 mg/dL (8.5-10.5); Carbon Dioxide 25 mmol/L (22-29); Chloride 102 mmol/L (98-107); Globulin 2.5 g/dL (1.3-4.6); Glucose 220 mg/dL (65-115); Osmolality Calculated 300 mOsm/kg (285-295); Potassium 4.6 mmol/L (3.5-5.1); Prostate Specific Antigen 0.606 ng/mL (0-4); Sodium 140 mmol/L (136-145); Total Bilirubin 0.5 mg/dL (0.15-1.2); Total Protein 6.5 g/dL (6.6-8.7)
[2025-04-16 15:58] LABS: Testosterone Total 2.8 ng/dL (193-740)
== END 2025-04-21 23:59 | disposition home or self-care (01) ==
PROVIDERS: PCP Family Medicine; Visit Provider Nurse Practitioner Family
DX: C61 Malignant neoplasm of prostate (principal); R74.8 Abnormal levels of other serum enzymes
CPT/HCPCS: 36415; 80053; 84153; 84403; 85025

== ENCOUNTER → 2025-04-24 14:11 | Outpatient (BNVA) | payer MEDICARE, OTHER, SELFPAY | PROVIDERS: PCP Family Medicine; Visit Provider Internal Medicine Cardiovascular Disease | DX: I25.10 Atherosclerotic heart disease of native coronary artery without angina pectoris (principal); R74.01 Elevation of levels of liver transaminase levels; I10 Essential (primary) hypertension; Z79.82 Long term (current) use of aspirin; Z95.5 Presence of coronary angioplasty implant and graft; Z87.891 Personal history of nicotine dependence; Z79.899 Other long term (current) drug therapy | CPT/HCPCS: 99214 ==

== ENCOUNTER 2025-05-07 11:26 | Oncology outpatient (recurring) (ONCR) | payer MEDICARE, OTHER, SELFPAY ==
--- NOTE | 2025-05-02 10:30 | USR_ITS ---
PROCEDURE INFORMATION: Exam: US Abdomen Complete Exam date and time: 05/02/2025 10:42 AM Age: 79 years old Clinical indication: Abdominal pain; Localized; Right upper quadrant (ruq); Additional info: Right upper quadrant pain TECHNIQUE: Imaging protocol: Real-time ultrasound of the abdomen with image documentation. Complete exam. COMPARISON: CT abdomen pelvis w con* [id number] 06/13/2022 11:25 AM FINDINGS: The visualized aorta and IVC are grossly normal in caliber. No focal hepatic lesion is identified. No biliary ductal dilatation. The common bile duct measures 0.4 cm. Status post cholecystectomy. The right kidney measures 12.5 cm. No hydronephrosis. Large simple cyst in the right kidney measuring 9.7 x 8.0 x 9.0 cm. The left kidney measures 12.1 cm. No hydronephrosis. A simple right renal cyst measures 3.6 x 2.8 x 2 x 1 cm. The pancreas is obscured by overlying bowel gas. The spleen is unremarkable. US/US abdomen complete* [id number] IMPRESSION: 1. No acute abnormality is identified. 2. Bilateral renal cysts, right larger than left. 3. Status post cholecystectomy.
[2025-05-07 13:16] LABS: Alanine Aminotransferase 382 U/L (0-41); Albumin Level 3.9 g/dL (3.5-5.2); Alkaline Phosphatase 540 U/L (40-130); Aspartate Amino Transferase 253 U/L (0-40); Globulin 2.2 g/dL (1.3-4.6); Total Protein 6.1 g/dL (6.6-8.7)
[2025-05-07 14:12] LABS: Estmated Average Glucose 194; Hemoglobin A1C 8.4 % (4.0-6.0)
[2025-05-07 14:24] LABS: Hepatitis A Antibody IgM Non-Reactive (Nonreactive); Hepatitis B Surface Antigen Non-Reactive (Nonreactive)
== END 2025-05-22 23:59 | disposition home or self-care (01) ==
PROVIDERS: Internal Medicine Cardiovascular Disease; PCP Family Medicine; Visit Provider Family Medicine
DX: R74.8 Abnormal levels of other serum enzymes (principal); Z79.899 Other long term (current) drug therapy; R74.01 Elevation of levels of liver transaminase levels; E11.9 Type 2 diabetes mellitus without complications
CPT/HCPCS: 36415; 76700; 80074; 80076; 83036

== ENCOUNTER 2025-06-25 12:40 | Oncology outpatient (recurring) (ONCR) | payer MEDICARE, OTHER, SELFPAY ==
[2025-06-25 13:19] LABS: Hematocrit 38.4 % (37-53); Hemoglobin 13.10 g/dL (11.27-16.99); Mean Corpuscular HGB Conc 34.1 g/dL (30-55); Mean Corpuscular Hemoglobin 32.5 pg (27-33); Mean Corpuscular Volume 95.3 fl (82-101); Nucleated Red Blood Cells % 0 %; Platelet Count 240 10^3/cmm (157-399); Red Blood Count 4.03 10^6/uL (3.85-5.65); White Blood Count 6.79 10^3/uL (3.29-11.43)
[2025-06-25 13:44] LABS: Alanine Aminotransferase 66 U/L (0-41); Albumin Level 3.9 g/dL (3.5-5.2); Alkaline Phosphatase 278 U/L (40-130); Anion Gap 16.4 (5-19); Aspartate Amino Transferase 46 U/L (0-40); Blood Urea Nitrogen 16 mg/dL (8-23); Calcium 9.3 mg/dL (8.5-10.5); Carbon Dioxide 25 mmol/L (22-29); Chloride 102 mmol/L (98-107); Creatinine Clr Calc Pharmacy 94.1192; Globulin 2.7 g/dL (1.3-4.6); Glucose 251 mg/dL (65-115); Osmolality Calculated 298 mOsm/kg (285-295); Potassium 4.4 mmol/L (3.5-5.1); Prostate Specific Antigen 0.976 ng/mL (0-4); Sodium 139 mmol/L (136-145); Total Protein 6.6 g/dL (6.6-8.7)
[2025-06-25] MEDS: denosumab 60 mg SDV (Infusion Clinic Only) SUBCUT (15:07)
[2025-06-25] MEDS: leuprolide 22.5 mg Kit IM (15:08)
== END 2025-07-22 23:59 | disposition home or self-care (01) ==
PROVIDERS: PCP Family Medicine; Visit Provider Nurse Practitioner
DX: Z51.11 Encounter for antineoplastic chemotherapy (principal); C61 Malignant neoplasm of prostate; C79.51 Secondary malignant neoplasm of bone; R03.0 Elevated blood-pressure reading, without diagnosis of hypertension; W55.03XA Scratched by cat, initial encounter; M89.9 Disorder of bone, unspecified; Z79.818 Long term (current) use of other agents affecting estrogen receptors and estrogen levels; Z79.899 Other long term (current) drug therapy; Z87.891 Personal history of nicotine dependence
CPT/HCPCS: 36415; 80053; 84153; 84403; 85025; 96372; 96402; 99214; J0897; J9217

== ENCOUNTER → 2025-08-06 14:24 | Outpatient (BNVA) | payer MEDICARE, OTHER, SELFPAY | PROVIDERS: PCP Family Medicine; Visit Provider Family Medicine | DX: E11.9 Type 2 diabetes mellitus without complications (principal); S30.860A Insect bite (nonvenomous) of lower back and pelvis, initial encounter; W57.XXXA Bitten or stung by nonvenomous insect and other nonvenomous arthropods, initial encounter | CPT/HCPCS: 80053; 83036; 86618; 86666; 86757 ==

== ENCOUNTER 2025-09-30 11:10 | Oncology outpatient (recurring) (ONCR) | payer MEDICARE, OTHER, SELFPAY ==
[2025-09-30 11:38] LABS: Hematocrit 37.2 % (37-53); Hemoglobin 12.50 g/dL (11.27-16.99); Mean Corpuscular HGB Conc 33.6 g/dL (30-55); Mean Corpuscular Hemoglobin 31.7 pg (27-33); Mean Corpuscular Volume 94.4 fl (82-101); Nucleated Red Blood Cells % 0 %; Platelet Count 316 10^3/cmm (157-399); Red Blood Count 3.94 10^6/uL (3.85-5.65); White Blood Count 8.33 10^3/uL (3.29-11.43)
[2025-09-30 12:05] LABS: Alanine Aminotransferase 54 U/L (0-41); Albumin Level 3.7 g/dL (3.5-5.2); Alkaline Phosphatase 590 U/L (40-130); Anion Gap 15.4 (5-19); Aspartate Amino Transferase 58 U/L (0-40); Blood Urea Nitrogen 17 mg/dL (8-23); Calcium 9.6 mg/dL (8.5-10.5); Carbon Dioxide 27 mmol/L (22-29); Chloride 98 mmol/L (98-107); Globulin 3.6 g/dL (1.3-4.6); Glucose 148 mg/dL (65-115); Osmolality Calculated 286 mOsm/kg (285-295); Potassium 4.4 mmol/L (3.5-5.1); Prostate Specific Antigen 1.300 ng/mL (0-4); Sodium 136 mmol/L (136-145); Total Protein 7.3 g/dL (6.6-8.7)
[2025-09-30] MEDS: ondansetron 2 mg/ML SDV 2 mL 8 MG IVP (14:11)
[2025-09-30 15:20] VITALS: BP 145/71; PULSE 71; RESP 17; TEMP 36.6; O2SAT 98
== END 2025-10-22 23:59 | disposition home or self-care (01) ==
LOC: ONCMED 11:11
PROVIDERS: Internal Medicine Medical Oncology; PCP Family Medicine; Visit Provider Nurse Practitioner
DX: C61 Malignant neoplasm of prostate (principal); C79.51 Secondary malignant neoplasm of bone; I10 Essential (primary) hypertension; R61 Generalized hyperhidrosis; R68.83 Chills (without fever); Z87.891 Personal history of nicotine dependence; Z79.899 Other long term (current) drug therapy
CPT/HCPCS: 36415; 80053; 84153; 84403; 85025; 96360; 96375; 99214; J1100; J2405; J7030